=== PATIENT | male | born 1970 | race Caucasian/White ===

== ENCOUNTER 2017-06-26 11:47 | Inpatient (IN) | payer SELFPAY ==
[2017-06-26] VITALS (15 sets, daily range): BP systolic 128–201; BP diastolic 70–116; PULSE 104–147; RESP 10–27; TEMP 98–100.2; O2SAT 94–100
[~2017-06-26] VITALS: Ht 190.5 cm; Wt 107.4 kg
[~2017-06-26 11:47] MED LIST: NORV2.5T11 PO; SULF1TAB47 PO; Z.0.NO CURRENT MEDS
[2017-06-26] MEDS ORDERED: SODIUM CHLOR 0.9% 1000 ML INJ 1,000 ML IV ONE ×3 (12:08)
[2017-06-26] MEDS ORDERED: VANCOMYCIN INJ 1,250 MG in SODIUM CHLORID 0.9% 500 ML INJ 500 ML IV STA (12:08)
[2017-06-26] MEDS ORDERED: PIPERACIL-TAZO 4.5 GM PREMIX 100 ML IV STA (12:08)
[2017-06-26] MEDS ORDERED: CLINDAMYCIN INJ 900 MG in SODIUM CHLORIDE 0.9% INJ 100 ML IV STA (12:08)
[2017-06-26 12:37] LABS: AUTOMATED NEUTROPHIL # 13.9 TH/MM3 (1.8-7.7); BASOPHIL # 0.4 TH/MM3 (0-0.2); BASOPHIL % 2.4 % (0.0-2.0); EOSINOPHIL # 0.1 TH/MM3 (0-0.4); EOSINOPHIL % 0.4 % (0.0-4.0); LYMPHOCYTE # 1.3 TH/MM3 (1.0-4.8); MEAN CELL VOLUME 82.3 FL (80.0-100.0); MEAN CORPUSCULAR HEMOGLOBIN 27.9 PG (27.0-34.0); MEAN CORPUSCULAR HGB CONC 33.9 % (32.0-36.0); MONO % 5.6 % (0.0-8.0); NEUT % 83.6 % (16.0-70.0); PLATELET COUNT 248 TH/MM3 (150-450); RED BLOOD COUNT 5.47 MIL/MM3 (4.50-5.90); RED CELL DISTRIBUTION WIDTH 12.3 % (11.6-17.2); WHITE BLOOD COUNT 16.6 TH/MM3 (4.0-11.0)
[2017-06-26 12:40] LABS: HEMO FLAGS AUTO DIFF
[2017-06-26 12:45] LABS: CHLORIDE 95 MEQ/L (98-107); POTASSIUM 4.2 MEQ/L (3.5-5.1); SODIUM (NA) 129 MEQ/L (136-145)
[2017-06-26 12:50] LABS: ANION GAP 9 MEQ/L (5-15); BICARBONATE 24.8 MEQ/L (21.0-32.0)
[2017-06-26 12:53] LABS: BLOOD UREA NITROGEN 16 MG/DL (7-18)
[2017-06-26] MEDS ORDERED: CLINDAMYCIN 900 MG PREMIX 50 ML IV ONE (13:00)
[2017-06-26 13:02] LABS: ALKALINE PHOSPHATASE 99 U/L (45-117); ALT (GPT) 14 U/L (12-78); AST (GOT) 6 U/L (15-37); GLOMERULAR FILTRATION RATE 72 ML/MIN (>89); TOTAL BILIRUBIN ADULT 0.9 MG/DL (0.2-1.0)
[2017-06-26 13:10] LABS: BLOOD GAS BASE EXCESS -1.2 mmol/L (-2-2); BLOOD GAS CARBOXYHEMOGLOBIN 4.5 % (0-4); BLOOD GAS HCO3 22 mmol/L (22-26); BLOOD GAS METHEMOGLOBIN 0.9 % (0-2); BLOOD GAS O2 HGB SATURATION 92 % (90-100); BLOOD GAS OXYGEN CONTENT 18.7 Vol % (12.0-20.0); BLOOD GAS PCO2 34 mmHG (38-42); BLOOD GAS PO2 78 mmHG (61-120); BLOOD GAS TOTAL HGB 14.5 G/DL (12.0-16.0); CRITICAL VALUE NO; DRAW SITE LT BRACHIAL; FIO2 21 %; NUMBER OF ARTERIAL PUNCTURES 1; STAT YES; TEMP CORR TO 98.6; ULNAR PULSE PRESENT
[2017-06-26] MEDS ORDERED: INSULIN HUMAN REGULAR 1,000 UNITS/10 ML VIAL IV PUSH ONE (13:15)
[2017-06-26 13:26] LABS: SCAN/DIFF AUTO DIFF CONFIRMED
--- NOTE | 2017-06-26 13:36 | PD ---
HPI Chief Complaint: Skin Problem Time Seen by Provider: 12:05 Travel History International Travel<30 days: No Contact w/Intl Traveler<30days: No Traveled to known affect area: No History of Present Illness HPI 47 yo M c/o L foot infection for three days increasing redness and swelling. No fever. Minimal drainage noted about the great toe coupled with abrupt worsening overnight reported. Pt was referred here from urgent care due to appearance of foot and tachycardia 150. Pt denies any medical history however has not followed up with a physician. No symptoms c/w diabetes. PFSH Past Medical History Hypertension: Yes Influenza Vaccination: No Past Surgical History Tonsillectomy: Yes Other Surgery: Yes (HERNIA REPAIR) Social History Alcohol Use: No (FORMER) Tobacco Use: Yes (1 PPD) Substance Use: No Allergies-Medications (Allergen,Severity, Reaction): Coded Allergies: cephalexin (Unverified Allergy, Unknown, 06/26/17) codeine (Unverified Allergy, Unknown, 06/26/17) Reported Meds & Prescriptions Reported Meds & Active Scripts Active No Active Prescriptions or Reported Medications Review of Systems Except as stated in HPI: all other systems reviewed are Neg Skin: Positive Rash Physical Exam Narrative GENERAL: 47 yo M, WNWD, mild distress SKIN: Warm and dry. Well demarcated erythema and warmth about the dorsum of the left foot. No crepitus. No tenderness out of proportion. HEAD: Atraumatic. Normocephalic. EYES: Pupils equal and round. No scleral icterus. No injection or drainage. ENT: No nasal bleeding or discharge. Mucous membranes pink and moist. NECK: Trachea midline. No JVD. CARDIOVASCULAR: Tachycardia. Regular. RESPIRATORY: No accessory muscle use. Clear to auscultation. Breath sounds equal bilaterally. GASTROINTESTINAL: Abdomen soft, non-tender, nondistended. Hepatic and splenic margins not palpable. MUSCULOSKELETAL: Extremities without clubbing, cyanosis, or edema. No obvious deformities. NEUROLOGICAL: Awake and alert. No obvious cranial nerve deficits. Motor grossly within normal limits. Five out of 5 muscle strength in the arms and legs. Normal speech. PSYCHIATRIC: Appropriate mood and affect; insight and judgment normal. Data Data Last Documented VS Vital Signs Date Time Temp Pulse Resp B/P (MAP) Pulse Ox O2 Delivery O2 Flow Rate FiO2 06/26/17 12:30 98 Room Air 06/26/17 12:10 150 06/26/17 11:58 98.0 16 136/85 (102) VS reviewed Orders Orders Complete Blood Count With Diff (06/26/17 12:08) Comprehensive Metabolic Panel (06/26/17 12:08) Lactic Acid Sepsis Protocol (06/26/17 12:08) Urinalysis - C+S If Indicated (06/26/17 12:08) Blood Culture (06/26/17 12:08) Blood Glucose (06/26/17 12:08) Ecg Monitoring (06/26/17 12:08) Iv Access Insert/Monitor (06/26/17 12:08) Oximetry (06/26/17 12:08) Oxygen Administration (06/26/17 12:08) Piperacil-Tazo 4.5 Gm Premix (Zosyn 4.5 (06/26/17 12:08) Clindamycin Inj (Cleocin Inj) (06/26/17 12:08) Vancomycin Inj (Vancomycin Inj) (06/26/17 12:08) Sodium Chlor 0.9% 1000 Ml Inj (Ns 1000 M (06/26/17 12:08) Sodium Chlor 0.9% 1000 Ml Inj (Ns 1000 M (06/26/17 12:08) Sodium Chlor 0.9% 1000 Ml Inj (Ns 1000 M (06/26/17 12:08) Foot, Limited (2vws) (06/26/17 ) Wound Culture And Gram Stain (06/26/17 12:32) Arterial Blood Gas (Abg) (06/26/17 ) Beta Hydroxybutyrate (Acetone) (06/26/17 12:52) Clindamycin 900 Mg Premix (Cleocin 900 M (06/26/17 13:00) Insulin Human Regular Inj (Novolin R Inj (06/26/17 13:15) Labs Laboratory Tests Test 06/26/17 12:20 06/26/17 12:25 06/26/17 13:00 White Blood Count 16.6 TH/MM3 Red Blood Count 5.47 MIL/MM3 Hemoglobin 15.3 GM/DL Hematocrit 45.0 % Mean Corpuscular Volume 82.3 FL Mean Corpuscular Hemoglobin 27.9 PG Mean Corpuscular Hemoglobin Concent 33.9 % Red Cell Distribution Width 12.3 % Platelet Count 248 TH/MM3 Mean Platelet Volume 9.2 FL Neutrophils (%) (Auto) 83.6 % Lymphocytes (%) (Auto) 8.0 % Monocytes (%) (Auto) 5.6 % Eosinophils (%) (Auto) 0.4 % Basophils (%) (Auto) 2.4 % Neutrophils # (Auto) 13.9 TH/MM3 Lymphocytes # (Auto) 1.3 TH/MM3 Monocytes # (Auto) 0.9 TH/MM3 Eosinophils # (Auto) 0.1 TH/MM3 Basophils # (Auto) 0.4 TH/MM3 CBC Comment AUTO DIFF Blood Urea Nitrogen 16 MG/DL Creatinine 1.10 MG/DL Random Glucose 413 MG/DL Total Protein 8.1 GM/DL Albumin 3.3 GM/DL Calcium Level 9.3 MG/DL Alkaline Phosphatase 99 U/L Aspartate Amino Transf (AST/SGOT) 6 U/L Alanine Aminotransferase (ALT/SGPT) 14 U/L Total Bilirubin 0.9 MG/DL Sodium Level 129 MEQ/L Potassium Level 4.2 MEQ/L Chloride Level 95 MEQ/L Carbon Dioxide Level 24.8 MEQ/L Anion Gap 9 MEQ/L Estimat Glomerular Filtration Rate 72 ML/MIN Lactic Acid Level 2.2 mmol/L Blood Gas Puncture Site LT BRACHIAL Blood Gas Patient Temperature 98.6 Blood Gas HCO3 22 mmol/L Blood Gas Base Excess -1.2 mmol/L Blood Gas Oxygen Saturation 92 % Arterial Blood pH 7.43 Arterial Blood Partial Pressure CO2 34 mmHG Arterial Blood Partial Pressure O2 78 mmHG Arterial Blood Oxygen Content 18.7 Vol % Arterial Blood Carboxyhemoglobin 4.5 % Arterial Blood Methemoglobin 0.9 % Blood Gas Hemoglobin 14.5 G/DL Oxygen Delivery Device NONE Blood Gas Inspired Oxygen 21 % [facility] Medical Decision Making Medical Screen Exam Complete: Yes Emergency Medical Condition: Yes Medical Record Reviewed: Yes Differential Diagnosis Cellulitis, necrotizing fasciitis, abscess, osteomyelitis, diabetes, DKA Narrative Course CBC & BMP Diagram 06/26/17 12:20 Total Protein 8.1, Albumin 3.3 L, Calcium Level 9.3, Alkaline Phosphatase 99, Aspartate Amino Transf (AST/SGOT) 6 L, Alanine Aminotransferase (ALT/SGPT) 14, Total Bilirubin 0.9 Anion gap 9 Lactic acid 2.2 7.43/34/22 Foot xray: no free air/gas Zosyn, Clinda, and Vanco started 3L NS started and 10u insulin given Admission for sepsis due to cellulitis and for new diagnosis of diabetes d/w Dr Rizzo Critical Care Narrative Aggregate critical care time was 35 minutes. Time to perform other separately billable procedures was not included in the critical care time. My time did not include minutes spent treating any other patients simultaneously or on activities that did not directly contribute to the patient's treatment. The services I provided to this patient were to treat and/or prevent clinically significant deterioration that could result in: Septic shock, loss of limb I provided critical care services requiring my management, as noted below: Chart data review, documentation time, medication orders and management, vital sign assessments/reviewing monitor data, ordering and reviewing lab tests, ordering and interpreting/reviewing x-rays and diagnostic studies, care of the patient and discussion of the patient with the admitting physicians. Sepsis Criteria SIRS Criteria (2 or more): Heart rate over 90, WBC > 25767, < 4000 or > 10% bands Sepsis Criteria (SIRS+source): Infect source susp/known Severe Sepsis (+one): Lactate >2 Diagnosis Primary Impression: Severe sepsis Additional Impressions: Cellulitis of foot Diabetes Qualified Codes: E13.8 - Other specified diabetes mellitus with unspecified complications Admitting Information Admitting Physician Requests: Admit Scripts No Active Prescriptions or Reported Meds Aj Rios MD Jun 26, 2017 13:36
--- NOTE | 2017-06-26 13:44 | RADRPT ---
EXAM DATE/TIME: 06/26/2017 12:28 [facility] COMPARISON: No previous studies available for comparison. INDICATIONS : Left foot swelling and infection. MEDICAL HISTORY : Hypertension. SURGICAL HISTORY : None. ENCOUNTER: Initial ACUITY: 4 - 6 days PAIN SCORE: 4/10 LOCATION: foot. FINDINGS: 2 views of the left foot demonstrate no fracture or dislocation. Mineralization is normal. Lisfranc j oint is intact. There is soft tissue swelling of the first digit with possible wound on the plantar a spect. No radiopaque foreign body is identified. CONCLUSION: Soft tissue swelling of the first digit with possible wound on the plantar aspect. No acute osseous a bnormality is identified. Enrique Lane MD on June 26, 2017 at 13:39 Board Certified Radiologist. This report was verified electronically.
[2017-06-26] MEDS ORDERED: MAGNESIUM HYDROXIDE SUSP 30 ML CUP PO PRN (13:45)
[2017-06-26] MEDS ORDERED: BISACODYL 10 MG SUPP RECTAL PRN (13:45)
[2017-06-26] MEDS ORDERED: LACTULOSE SYRUP 20 GM/30 ML CUP PO PRN (13:45)
[2017-06-26] MEDS ORDERED: ONDANSETRON HCL 4 MG/2 ML VIAL IVP PRN (13:45)
[2017-06-26] MEDS ORDERED: NALOXONE HCL 0.4 MG/ML AMP IV PUSH PRN (13:45)
[2017-06-26] MEDS ORDERED: Vancomycin Consult Pharmacy 1 EA OTHER SCH (13:45)
[2017-06-26] MEDS ORDERED: SENNOSIDES 8.6 MG TAB PO PRN (13:45)
[2017-06-26 14:02] LABS: BETA-HYDROXYBUTYRATE 1.26 MMOL/L (0.00-0.39)
[2017-06-26] MEDS ORDERED: IOHEXOL 350 MG/ML 10 ML VIAL (for RAD DIAG) IVCONTRAST ONE (14:20)
[2017-06-26 14:30] LABS: LACTIC ACID GHOST NOT REPORTABLE
--- NOTE | 2017-06-26 14:49 | RADRPT ---
EXAM DATE/TIME: 06/26/2017 13:58 [facility] COMPARISON: No previous studies available for comparison. INDICATIONS : Left foot pain, redness and swelling x 3days. Draining from plantar surface of great toe. Evaluate for necrotizing fasciitis. IV CONTRAST: 85 cc Omnipaque 350 (iohexol) IV RADIATION DOSE: 6.19 CTDIvol (mGy) MEDICAL HISTORY : Hypertension. SURGICAL HISTORY : Hernia repair. ENCOUNTER: Initial ACUITY: 3 days PAIN SCALE: 3/10 LOCATION: Left foot TECHNIQUE: Volumetric scanning of the foot was performed. Using automated exposure control and adjustment of th e mA and/or kV according to patient size, radiation dose was kept as low as reasonably achievable to obtain optimal diagnostic quality images. DICOM format image data is available electronically for re view and comparison. FINDINGS: BONES: No evidence of fracture. Alignment is within normal limits. JOINTS: No evidence of joint narrowing or effusion. SOFT TISSUES: Significant soft tissue swelling along the medial aspect of the foot is noted from the midfoot to the great toe. A defect along the plantar surface of the great toe is characteristic of an ulceration. T here is no evidence of subcutaneous gas or other findings that would indicate necrotizing fasciitis. CONCLUSION: 1. Soft tissue swelling along the medial aspect of the forefoot with ulceration on the plantar surfac e of the great toe. 2. No evidence of destructive bone changes. 3. No evidence of soft tissue air to suggest necrotizing fasciitis. Alcides Burris MD on June 26, 2017 at 14:42 Board Certified Radiologist. This report was verified electronically.
[2017-06-26] MEDS ORDERED: LORazepam 2 MG TAB PO ONE (16:00)
[2017-06-26] MEDS ORDERED: FLUMAZENIL 0.5 MG/5 ML VIAL IV PUSH PRN (16:00)
[2017-06-26] MEDS ORDERED: LORazepam 1 MG TAB PO PRN (16:00)
[2017-06-26] MEDS ORDERED: LORazepam 2 MG TAB PO PRN (16:00)
[2017-06-26] MEDS ORDERED: LORazepam 2 MG/ML VIAL IV PUSH PRN ×4 (16:00)
--- NOTE | 2017-06-26 16:07 | HHI.HP ---
[facility] Primary [facility]ician No Primary Care Physician Admission Diagnosis Severe Sepsis 2/2 Cellulitis, New Dx DM Diagnoses: Travel History International Travel<30 Days: No Contact w/Intl Traveler <30 Da: No Traveled to Known Affected Are: No Past Family Social History Past Medical History History of chronic allergies for which patient takes [id number] antihistamine Past Surgical History Inguinal hernia repair as a child Tonsillectomy Reported Medications takes [id number] antihistamine. Allergies: Coded Allergies: cephalexin (Unverified Allergy, Unknown, 06/26/17) codeine (Unverified Allergy, Unknown, 06/26/17) Family History Mother with type 2 diabetes, hypertension. Father with chronic leukocytic leukemia. Social History Patient's smoked one pack per day for past 27 years. Patient reports history of heavy alcohol use drinking a case of beer per day, however quit 3 months ago. Denies any illicit drugs. Physical Exam Vital Signs Vital Signs Date Time Temp Pulse Resp B/P (MAP) Pulse Ox O2 Delivery O2 Flow Rate FiO2 06/26/17 15:03 06/26/17 14:47 130 18 175/90 (118) 99 Room Air 06/26/17 12:30 98 Room Air 06/26/17 12:28 98 Room Air 06/26/17 12:10 150 06/26/17 11:58 98.0 147 16 136/85 (102) 99 Physical Exam GENERAL: This is a well-nourished, well-developed patient. Appears to be breathing rapidly about 22 respirations per minute. SKIN: No rashes, ecchymoses or lesions. Cool and dry. HEAD: Atraumatic. Normocephalic. No temporal or scalp tenderness. EYES: Pupils equal round and reactive. Extraocular motions intact. No scleral icterus. No injection or drainage. ENT: Nose without bleeding, purulent drainage or septal hematoma. Throat without erythema, tonsillar hypertrophy or exudate. Uvula midline. Airway patent. Very poor dentition. No abscesses noted. NECK: Trachea midline. No JVD or lymphadenopathy. Supple, nontender, no meningeal signs. CARDIOVASCULAR: Regular rate and rhythm without murmurs, gallops, or rubs. RESPIRATORY: Clear to auscultation. Breath sounds equal bilaterally. No wheezes , rales, or rhonchi. GASTROINTESTINAL: Abdomen soft, non-tender, nondistended. No hepato-splenomegaly , or palpable masses. No guarding. MUSCULOSKELETAL: Extremities without clubbing, cyanosis, or edema. No joint tenderness, effusion, or edema noted. No calf tenderness. Negative Homans sign bilaterally. Left foot ulcer of great toe, as well as palliative foot, roughly 1 cm, surrounded with erythema extending one third of the way up the foot. NEUROLOGICAL: Awake and alert. Cranial nerves II through XII intact. Motor and sensory grossly within normal limits. Five out of 5 muscle strength in all muscle groups. Normal speech. Laboratory Laboratory Tests Test 06/26/17 12:20 06/26/17 12:25 06/26/17 13:00 White Blood Count 16.6 Red Blood Count 5.47 Hemoglobin 15.3 Hematocrit 45.0 Mean Corpuscular Volume 82.3 Mean Corpuscular Hemoglobin 27.9 Mean Corpuscular Hemoglobin Concent 33.9 Red Cell Distribution Width 12.3 Platelet Count 248 Mean Platelet Volume 9.2 Neutrophils (%) (Auto) 83.6 Lymphocytes (%) (Auto) 8.0 Monocytes (%) (Auto) 5.6 Eosinophils (%) (Auto) 0.4 Basophils (%) (Auto) 2.4 Neutrophils # (Auto) 13.9 Lymphocytes # (Auto) 1.3 Monocytes # (Auto) 0.9 Eosinophils # (Auto) 0.1 Basophils # (Auto) 0.4 CBC Comment AUTO DIFF Differential Comment AUTO DIFF CONFIRMED Blood Urea Nitrogen 16 Creatinine 1.10 Random Glucose 413 Total Protein 8.1 Albumin 3.3 Calcium Level 9.3 Alkaline Phosphatase 99 Aspartate Amino Transf (AST/SGOT) 6 Alanine Aminotransferase (ALT/SGPT) 14 Total Bilirubin 0.9 Sodium Level 129 Potassium Level 4.2 Chloride Level 95 Carbon Dioxide Level 24.8 Anion Gap 9 Estimat Glomerular Filtration Rate 72 B-Hydroxybutyrate 1.26 Lactic Acid Level 2.2 Blood Gas Puncture Site LT BRACHIAL Blood Gas Patient Temperature 98.6 Blood Gas HCO3 22 Blood Gas Base Excess -1.2 Blood Gas Oxygen Saturation 92 Arterial Blood pH 7.43 Arterial Blood Partial Pressure CO2 34 Arterial Blood Partial Pressure O2 78 Arterial Blood Oxygen Content 18.7 Arterial Blood Carboxyhemoglobin 4.5 Arterial Blood Methemoglobin 0.9 Blood Gas Hemoglobin 14.5 Oxygen Delivery Device NONE Blood Gas Inspired Oxygen 21 Date/Time Source Procedure Growth Status 06/26/17 12:25 Blood Peripheral Aerobic Blood Culture Pending Received 06/26/17 12:25 Blood Peripheral Anaerobic Blood Culture Pending Received 06/26/17 13:50 Wound Toe Gram Stain Pending Received 06/26/17 13:50 Wound Toe Wound Culture Pending Received Result Diagram: 06/26/17 1220 06/26/17 1220 Imaging Last Impressions Lower Extremity CT 06/26/17 0000 Signed Impressions: Service Date/Time: June 13:58 - CONCLUSION: 1. Soft tissue swelling along the medial aspect of the forefoot with ulceration on the plantar surface of the great toe. 2. No evidence of destructive bone changes. 3. No evidence of soft tissue air to suggest necrotizing fasciitis. Alcides Burris MD Foot X-Ray 06/26/17 0000 Signed Impressions: Service Date/Time: June 12:28 - CONCLUSION: Soft tissue swelling of the first digit with possible wound on the plantar aspect. No acute osseous abnormality is identified. MD Daisy Zelaya VTE Risk Assessment Caprini VTE Risk Assessment: No/Low Risk (score <= 1) Caprini Risk Assessment Model Point Value = 1 Point Value = 2 Point Value = 3 Point Value = 5 Age 41-60 Minor surgery BMI > 25 kg/m2 Swollen legs Varicose veins or History of unexplained or recurrent spontaneous Oral contraceptives or hormone replacement Sepsis (< 1 month) Serious lung disease, including pneumonia (< 1 month) Abnormal pulmonary function Acute myocardial infarction Congestive heart failure (< 1 month) History of inflammatory bowel disease Medical patient at bed rest Age 61-74 Arthroscopic surgery Major open surgery (> 45 min) Laparoscopic surgery (> 45 min) Malignancy Confined to bed (> 72 hours) Immobilizing plaster cast Central venous access Age >= 75 History of VTE Family history of VTE Factor V Leiden Prothrombin [id number] Lupus anticoagulant Anticardiolipin antibodies Elevated serum homocysteine Heparin-induced thrombocytopenia Other congenital or acquired thrombophilia Stroke (< 1 month) Elective arthroplasty Hip, pelvis, or leg fracture Acute spinal cord injury (< 1 month) Prophylaxis Regimen Total Risk Factor Score Risk Level Prophylaxis Regimen 0-1 Low Early ambulation 2 Moderate Order ONE of the following: *Sequential Compression Device (SCD) *Heparin 5000 units SQ BID 3-4 Higher Order ONE of the following medications: *Heparin 5000 units SQ TID *Enoxaparin/Lovenox 40 mg SQ daily (WT < 150 kg, CrCl > 30 mL/min) *Enoxaparin/Lovenox 30 mg SQ daily (WT < 150 kg, CrCl > 10-29 mL/min) *Enoxaparin/Lovenox 30 mg SQ BID (WT < 150 kg, CrCl > 30 mL/min) AND/OR *Sequential Compression Device (SCD) 5 or more Highest Order ONE of the following medications: *Heparin 5000 units SQ TID (Preferred with Epidurals) *Enoxaparin/Lovenox 40 mg SQ daily (WT < 150 kg, CrCl > 30 mL/min) *Enoxaparin/Lovenox 30 mg SQ daily (WT < 150 kg, CrCl > 10-29 mL/min) *Enoxaparin/Lovenox 30 mg SQ BID (WT < 150 kg, CrCl > 30 mL/min) AND *Sequential Compression Device (SCD) Assessment and Plan Assessment and Plan //Severe Sepsis Leukocytosis 16.6, tachycardia 150 on admission. Lactate 2.2. Diabetic foot ulcer with cellulitis. -Status post multiple IV fluid boluses. Continue broad-spectrum antibiotics. Close monitoring of vitals. Follow-up blood and wound culture. //Sinus tachycardia -Appears sinus on telemetry. Appears to be out of proportion to current sepsis. -Slightly improved from heart rate of 150 to 130s with IV fluids. Urine drugs ordered and pending. //diabetic ulcer of left foot with cellulitis //Initially with concern for hasn't fasciitis per discussion with ER. -Foot x-ray negative for air. -We ordered CT exam which is negative for necrotizing fasciitis. -Continue vancomycin and Zosyn. -Consult podiatry. //Hyperglycemia //New-onset diabetes -Glucose of 413 on admission. -Status post IV insulin in the ER. -A1c ordered and pending. -Start diabetic diet and insulin sliding scale. //Hypertensive. //History of alcoholism. -Systolic blood pressure in the 180s upon arrival to floor. Unknown baseline. - Patient reports history of extremely heavy alcohol use having quit several months ago. His mother is present in the room, and I suspect he may have not quit. He does have a tremor which she says is chronic. We'll order CIWA protocol. //Tobacco abuse. Cessation counseling provided. DVT prophylaxis. SCDs Discussed Condition With Patient, mother bedside, ED physician. Physician Certification 2 Midnight Certification Type: Admission for Inpatient Services Order for Inpatient Services The services are ordered in accordance with Medicare regulations or non- Medicare payer requirements, as applicable. In the case of services not specified as inpatient-only, they are appropriately provided as inpatient services in accordance with the 2-midnight benchmark. Estimated LOS (days): 3 days is the estimated time the patient will need to remain in the hospital, assuming treatment plan goals are met and no additional complications. Post-Hospital Plan: [place] Carlo Rizzo MD Jun 26, 2017 16:07
[2017-06-26 16:44] LABS: GLUCOSE,URINE 500 mg/dL (NEG); KETONE, URINE 40 mg/dL (NEG); NITRITE,URINE NEG (NEG)
[2017-06-26 16:53] LABS: BLOOD, URINE TRACE (NEG)
[2017-06-26 16:54] LABS: URINE COLOR YELLOW (YELLW/STRAW)
[2017-06-26] MEDS: SODIUM CHLOR 0.9% 1000 ML INJ 1,000 ML IV SCH (16:56)
[2017-06-26] MEDS: INSULIN ASPART SUPPLEMENTAL SCALE SQ SCH ×2 (17:09→22:04)
[2017-06-26 17:14] LABS: COMMENT (UR) CULT NOT INDICATED; CULTURE IF INDICATED CULT NOT INDICATED; URIC ACID CRYSTALS, URINE MOD /hpf
[2017-06-26] MEDS ORDERED: DILTIAZEM HCL 25 MG/5 ML VIAL IV PUSH ONE (17:30)
[2017-06-26] MEDS ORDERED: DILTIAZEM HCL 25 MG/5 ML VIAL IV PUSH PRN (17:45)
[2017-06-26] MEDS ORDERED: CLINDAMYCIN 900 MG PREMIX 50 ML IV SCH (18:00)
--- NOTE | 2017-06-26 18:26 | PD.POD.CON ---
Patient Intake Chief Complaint Infection and cellulitis of the left foot Consult Requested by Dr. Rizzo Reason for Consult Evaluation and treatment of left foot wound Primary Care Physician No Primary Care Physician History of Present Illness The patient is a 47-year-old male who presented to [facility] with redness and swelling of the left foot. Patient states he has no past medical history that is significant although on admission his blood sugar is 413. Hemoglobin A1c is pending. Patient states 3 days ago he started to develop redness and swelling on the left foot. He has loss of sensation either from diabetes or long-term alcohol use. Patient smokes at least 1 pack of cigarettes per day. He states he had a callus on the bottom of the big toe which is currently bleeding. Cultures and sensitivities are pending. Patient was admitted for possible necrotizing fasciitis. CT scan shows no signs of fasciitis. No bone destruction was seen. Coded Allergies: cephalexin (Unverified Allergy, Unknown, 06/26/17) codeine (Unverified Allergy, Unknown, 06/26/17) Preferred Language to Discuss: Czech Barriers to Learning: None Teaching Method: Discussion Vital Signs Date Time Temp Pulse Resp B/P (MAP) Pulse Ox O2 Delivery O2 Flow Rate FiO2 06/26/17 15:03 06/26/17 14:47 130 18 175/90 (118) 99 Room Air 06/26/17 12:30 98 Room Air 06/26/17 12:28 98 Room Air 06/26/17 12:10 150 06/26/17 11:58 98.0 147 16 136/85 (102) 99 Pain scale used: 0-10 numeric scale Pain score: 1 Medications Current Medications Piperacillin Sod/ Tazobactam Sod 100 ml @ 200 mls/hr ONCE STAT IV Last administered on 06/26/17 13:30; Start 06/26/17 at 12:08; Stop 06/26/17 at 12:37 ; Status DC Clindamycin Phosphate 900 mg/ Sodium Chloride 106 ml @ 200 mls/hr ONCE STAT IV ; Start 06/26/17 at 12:08; Stop 06/26/17 at 12:42; Status DC Vancomycin HCl 1250 mg/Sodium Chloride 512.5 ml @ 257.5 mls/ hr ONCE STAT IV Last administered on 06/26/17 14:44; Start 06/26/17 at 12:08; Stop 06/26/17 at 14:07; Status DC Sodium Chloride 1,000 ml @ 1,000 mls/hr Q1H ONCE IV Last administered on 12:44; Start 06/26/17 at 12:08; Stop 06/26/17 at 13:07; Status DC Sodium Chloride 1,000 ml @ 1,000 mls/hr Q1H ONCE IV Last administered on 13:28; Start 06/26/17 at 12:08; Stop 06/26/17 at 13:07; Status DC Sodium Chloride 1,000 ml @ 1,000 mls/hr Q1H ONCE IV Last administered on 14:43; Start 06/26/17 at 12:08; Stop 06/26/17 at 13:07; Status DC Clindamycin Phosphate/Dextrose 50 ml @ 100 mls/hr STAT ONCE IV Last administered on 06/26/17 13:05; Start 06/26/17 at 13:00; Stop 06/26/17 at 13:29 ; Status DC Insulin Human Regular (NovoLIN R INJ) 10 units ONCE ONCE IV PUSH Last administered on 06/26/17 13:28; Start 06/26/17 at 13:15; Stop 06/26/17 at 13:16 ; Status DC Piperacillin Sod/ Tazobactam Sod 50 ml @ 100 mls/hr Q6H IV ; Start 06/26/17 at 20:00 Pharmacy Profile Note 0 ml @ 0 mls/hr UNSCH OTHER ; Start 06/26/17 at 13:45 Clindamycin Phosphate/Dextrose 50 ml @ 100 mls/hr Q6HR IV ; Start 06/26/17 at 18:00; Stop 06/26/17 at 18:00; Status DC Insulin Aspart (NovoLOG SUPPLEMENTAL SCALE) 1 ACHS SLIDING SCALE SQ Last administered on 06/26/17 17:09; Start 06/26/17 at 17:00 Sodium Chloride 1,000 ml @ 100 mls/hr Q10H IV Last administered on 06/26/17 16:56; Start 06/26/17 at 13:38 Sodium Chloride (NS Flush) 2 ml UNSCH PRN IV FLUSH FLUSH AFTER USING IV ACCESS ; Start 06/26/17 at 13:45 Sodium Chloride (NS Flush) 2 ml BID IV FLUSH ; Start 06/26/17 at 21:00 Ondansetron HCl (Zofran Inj) 4 mg Q6H PRN IVP NAUSEA OR VOMITING; Start at 13:45 Naloxone HCl (Narcan Inj) 0.4 mg UNSCH PRN IV PUSH SEE LABEL COMMENTS; Start 06/26/17 at 13:45 Magnesium Hydroxide (Milk Of Magnesia Liq) 30 ml Q12H PRN PO Mild constipation ; Start 06/26/17 at 13:45 Sennosides (Senokot) 17.2 mg Q12H PRN PO Moderate constipation; Start 06/26/17 at 13:45 Bisacodyl (Dulcolax Supp) 10 mg DAILY PRN RECTAL SEVERE CONSITIPATION; Start 06/26/17 at 13:45 Lactulose (Lactulose Liq) 30 ml DAILY PRN PO SEVERE CONSITIPATION; Start at 13:45 Iohexol (Omnipaque 350 Inj) 85 ml STK-MED ONCE IVCONTRAST Last administered on 06/26/17t 14:20; Start 06/26/17 at 14:20; Stop 06/26/17 at 14:21; Status DC Vancomycin HCl 1750 mg/Sodium Chloride 517.5 ml @ 250 mls/hr Q12H IV ; Start 06/27/17 at 03:00 Miscellaneous Information SPECIFIC LAB TO BE ... ONCE ONCE .XX ; Start 07/04 at 14:45; Stop 06/28/17 at 14:46 Lorazepam (Ativan) 2 mg ONCE ONCE PO Last administered on 06/26/17t 16:48; Start 06/26/17 at 16:00; Stop 06/26/17 at 16:02; Status DC Flumazenil (Romazicon Inj) 0.2 mg Q1M PRN IV PUSH SEE LABEL COMMENTS; Start at 16:00 Lorazepam (Ativan) 1 mg Q4H PRN PO CIWA 8 - 10; Start 06/26/17 at 16:00 Lorazepam (Ativan Inj) 1 mg Q4H PRN IV PUSH CIWA 8 - 10; Start 06/26/17 at 16: 00 Lorazepam (Ativan) 2 mg Q2H PRN PO CIWA 11-14; Start 06/26/17 at 16:00 Lorazepam (Ativan Inj) 2 mg Q2H PRN IV PUSH CIWA 11-14; Start 06/26/17 at 16:00 Lorazepam (Ativan Inj) 2 mg Q1H PRN IV PUSH CIWA 15-20; Start 06/26/17 at 16:00 Lorazepam (Ativan Inj) 2 mg Q15M PRN IV PUSH CIWA > 20; Start 06/26/17 at 16:00 Diltiazem HCl (Cardizem Inj) 20 mg ONCE ONCE IV PUSH ; Start 06/26/17 at 17:30 ; Stop 06/26/17 at 17:42; Status DC Diltiazem HCl 125 mg/Sodium Chloride 125 ml @ 5 mls/hr TITRATE PRN IV Tachycardia; Start 06/26/17 at 18:00 Diltiazem HCl (Cardizem Inj) 20 mg UNSCH X1 PRN IV PUSH SEE LABEL COMMENTS; Start 06/26/17 at 17:45; Stop 06/26/17 at 18:30 Past, Family & Social History Past Medical History Endocrine: REPORTS HX OF: Diabetes mellitus (patient did not know that he was diabetic) Alcohol Use Alcohol Intake: history of drinking at least a sixpack daily up until 3 months ago Additional Information Additional History Patient smokes at least 1 pack of cigarettes per day Review of Systems Integumentary: COMPLAINS OF: Rash Neurological: COMPLAINS OF: Numbness/tingling, Changes in sensation Exam-Podiatry Constitutional General appearance: comfortable Nutritional status: normal Orientation: alert and oriented x3 Dermatological Exam Skin Temp - Right: Within Normal Limits Skin Texture - Right: Within Normal Limits Skin Elasticity - Right: Within Normal Limits Skin Tugor - Right: Within Normal Limits Hair Growth - Right: Within Normal Limits Pigmentation - Right: Within Normal Limits Skin Temp - Left: Hot Skin Texture - Left: Thin Skin Elasticity - Left: Decreased Skin Tugor - Left: Decreased Hair Growth - Left: Abnormal Pigmentation - Left: Abnormal Ulcers: Location/Measurements Entire left forefoot is cellulitic with cyanotic changes of the hallux. There is a hyperkeratotic lesion under the left hallux and under the fourth metatarsal head of the left foot. Vascular/Lymphatic Exam R Dorsails Pedis: Palpable L Dorsails Pedis: Palpable R Posterior Tibial: Palpable L Posterior Tibial: Palpable Present on left: Cyanosis Neurologic Exam Present on right: Tingling, Paraesthesia Present on left: Tingling, Paraesthesia Muscle Strength Dorsiflexion (Right): Normal Plantarflexion (Right): Normal Inversion (Right): Normal Eversion (Right): Normal Digital (Right): Normal Dorsiflexion (Left): Normal Plantarflexion (Left): Normal Inversion (Left): Normal Eversion (Left): Normal Digital (Left): Normal Foot Range of Motion Dorsiflexion (Right): Normal Plantarflexion (Right): Normal Inversion (Right): Normal Eversion (Right): Normal Digital (Right): Normal Dorsiflexion (Left): Normal Plantarflexion (Left): Normal Inversion (Left): Normal Eversion (Left): Normal Digital (Left): Normal Lab and Radiology Results Laboratory Laboratory Tests Test 06/26/17 12:20 White Blood Count 16.6 TH/MM3 Red Blood Count 5.47 MIL/MM3 Hemoglobin 15.3 GM/DL Hematocrit 45.0 % Mean Corpuscular Volume 82.3 FL Mean Corpuscular Hemoglobin 27.9 PG Mean Corpuscular Hemoglobin Concent 33.9 % Red Cell Distribution Width 12.3 % Platelet Count 248 TH/MM3 Mean Platelet Volume 9.2 FL Neutrophils (%) (Auto) 83.6 % Lymphocytes (%) (Auto) 8.0 % Monocytes (%) (Auto) 5.6 % Eosinophils (%) (Auto) 0.4 % Basophils (%) (Auto) 2.4 % Neutrophils # (Auto) 13.9 TH/MM3 Lymphocytes # (Auto) 1.3 TH/MM3 Monocytes # (Auto) 0.9 TH/MM3 Eosinophils # (Auto) 0.1 TH/MM3 Basophils # (Auto) 0.4 TH/MM3 CBC Comment AUTO DIFF Differential Comment AUTO DIFF CONFIRMED Laboratory Tests Test 06/26/17 12:20 06/26/17 12:25 06/26/17 17:39 Blood Urea Nitrogen 16 MG/DL Creatinine 1.10 MG/DL Random Glucose 413 MG/DL Total Protein 8.1 GM/DL Albumin 3.3 GM/DL Calcium Level 9.3 MG/DL Alkaline Phosphatase 99 U/L Aspartate Amino Transf (AST/SGOT) 6 U/L Alanine Aminotransferase (ALT/SGPT) 14 U/L Total Bilirubin 0.9 MG/DL Sodium Level 129 MEQ/L Potassium Level 4.2 MEQ/L Chloride Level 95 MEQ/L Carbon Dioxide Level 24.8 MEQ/L Anion Gap 9 MEQ/L Estimat Glomerular Filtration Rate 72 ML/MIN Thyroid Stimulating Hormone 3rd Gen 0.855 uIU/ML Lactic Acid Level 2.2 mmol/L 1.7 mmol/L Microbiology Date/Time Source Procedure Growth Status 06/26/17 12:25 Blood Peripheral Aerobic Blood Culture Pending Received 06/26/17 12:25 Blood Peripheral Anaerobic Blood Culture Pending Received 06/26/17 12:20 Blood Peripheral Aerobic Blood Culture Pending Received 06/26/17 12:20 Blood Peripheral Anaerobic Blood Culture Pending Received 06/26/17 13:50 Wound Toe Gram Stain Pending Received 06/26/17 13:50 Wound Toe Wound Culture Pending Received Radiology Last Impressions Lower Extremity CT 06/26/17 0000 Signed Impressions: Service Date/Time: June 13:58 - CONCLUSION: 1. Soft tissue swelling along the medial aspect of the forefoot with ulceration on the plantar surface of the great toe. 2. No evidence of destructive bone changes. 3. No evidence of soft tissue air to suggest necrotizing fasciitis. Alcides Burris MD Foot X-Ray 06/26/17 0000 Signed Impressions: Service Date/Time: June 12:28 - CONCLUSION: Soft tissue swelling of the first digit with possible wound on the plantar aspect. No acute osseous abnormality is identified. Enrique Lane MD Assessment/Plan Problem List: (1) Diabetic foot ulcer Status: Acute (2) Cellulitis of foot Status: Acute Additional Plans & Procedures PLAN: I will order a Maxorb extra AG dressings to the foot to be changed daily. Arterial segmental Dopplers ordered with ABIs and TBI's. Discussed with patient tobacco cessation. Discussed risk of amputation in diabetics he smokes. We'll follow during the course of this admission. Discussed with Dr. Rizzo Thank you for this consult. Problem Qualifiers (1) Diabetic foot ulcer: Qualified Codes: E11.621 - Type 2 diabetes mellitus with foot ulcer; L97.521 - Non-pressure chronic ulcer of other part of left foot limited to breakdown of skin Ryan Garrett DPM Jun 26, 2017 18:26
[2017-06-26] MEDS: PIPERACIL-TAZO 3.375 GM PREMIX 50 ML IV SCH (21:09)
[2017-06-26] MEDS: DILTIAZEM INJ 125 MG in SODIUM CHLORIDE 0.9% INJ 100 ML IV PRN (21:48)
[2017-06-26 21:51] LABS: HEMOGLOBIN A1a 1.9 %; HEMOGLOBIN A1b 2.7 %; HEMOGLOBIN Ao 76.4 %; HEMOGLOBIN P3 4.8 %
[2017-06-26] MEDS: SODIUM CHLORIDE 0.9% FLUSH 10 ML FLUSH IV FLUSH SCH (22:05)
[2017-06-27] VITALS (36 sets, daily range): BP systolic 113–179; BP diastolic 65–97; PULSE 92–114; RESP 3–34; TEMP 97.6–99.4; O2SAT 98–99
[2017-06-27] MEDS ORDERED: FAMOTIDINE 20 MG TAB PO ONE (01:30)
[2017-06-27] MEDS: PIPERACIL-TAZO 3.375 GM PREMIX 50 ML IV SCH ×4 (01:59→17:07)
[2017-06-27] MEDS: SODIUM CHLOR 0.9% 1000 ML INJ 1,000 ML IV SCH ×2 (02:20→11:48)
[2017-06-27] MEDS: cloNIDine HCL 0.1 MG TAB PO PRN ×2 (02:22→21:20)
[2017-06-27] MEDS ORDERED: VANCOMYCIN INJ 1,750 MG in SODIUM CHLORID 0.9% 500 ML INJ 500 ML IV SCH (03:00)
[2017-06-27] MEDS: DILTIAZEM INJ 125 MG in SODIUM CHLORIDE 0.9% INJ 100 ML IV PRN (04:09)
[2017-06-27 04:49] LABS: AUTOMATED NEUTROPHIL # 11.8 TH/MM3 (1.8-7.7); BASOPHIL # 0.1 TH/MM3 (0-0.2); BASOPHIL % 0.4 % (0.0-2.0); EOSINOPHIL % 0.2 % (0.0-4.0); HEMATOCRIT 36.3 % (39.0-51.0); LYMPH % 11.2 % (9.0-44.0); LYMPHOCYTE # 1.7 TH/MM3 (1.0-4.8); MEAN CELL VOLUME 81.6 FL (80.0-100.0); MEAN CORPUSCULAR HEMOGLOBIN 28.1 PG (27.0-34.0); MEAN CORPUSCULAR HGB CONC 34.5 % (32.0-36.0); MONO % 7.9 % (0.0-8.0); NEUT % 80.3 % (16.0-70.0); PLATELET COUNT 226 TH/MM3 (150-450); RED BLOOD COUNT 4.45 MIL/MM3 (4.50-5.90); RED CELL DISTRIBUTION WIDTH 12.1 % (11.6-17.2); WHITE BLOOD COUNT 14.8 TH/MM3 (4.0-11.0)
[2017-06-27 04:50] LABS: HEMO FLAGS DIFF FINAL
[2017-06-27 05:11] LABS: ALKALINE PHOSPHATASE 80 U/L (45-117); ALT (GPT) 11 U/L (12-78); ANION GAP 11 MEQ/L (5-15); AST (GOT) 8 U/L (15-37); BICARBONATE 19.2 MEQ/L (21.0-32.0); BLOOD UREA NITROGEN 16 MG/DL (7-18); CHLORIDE 104 MEQ/L (98-107); GLOMERULAR FILTRATION RATE 178 ML/MIN (>89); SODIUM (NA) 134 MEQ/L (136-145); TOTAL BILIRUBIN ADULT 0.7 MG/DL (0.2-1.0)
--- NOTE | 2017-06-27 06:39 | RADRPT ---
EXAM DATE/TIME: 06/27/2017 06:12 [facility] COMPARISON: No previous studies available for comparison. INDICATIONS : Fever starting today MEDICAL HISTORY : Hypertension. SURGICAL HISTORY : None. ENCOUNTER: Initial ACUITY: 1 day PAIN SCORE: 0/10 LOCATION: Bilateral chest FINDINGS: A single view of the chest demonstrates the lungs to be symmetrically aerated without evidence of mas s, infiltrate or effusion. The cardiomediastinal contours are unremarkable. Osseous structures are intact. CONCLUSION: 1. No acute cardiopulmonary disease. Taras Su MD on June 27, 2017 at 6:37 Board Certified Radiologist. This report was verified electronically.
--- NOTE | 2017-06-27 06:52 | MB ---
cc: ALBERTO SUAZO MD, ALAN S. M.D. DATE OF CONSULTATION 06/27/2017 The chart was reviewed and the patient was examined. HISTORY OF PRESENT ILLNESS The patient is a 47-year-old white man I am seeing for tachycardia. The patient has not followed with a regular doctor. He does have a history of hypertension. The patient came to the emergency room because of a number of days of increasing foot erythema and infection. He was tachycardic although EKG revealed only sinus tachycardia. He has been placed on initially Cardizem and intravenous antibiotics. The patient has no cardiac history of symptoms. PAST MEDICAL HISTORY Otherwise includes: 1. Hernia repair 2. Tonsillectomy 3. Just diagnosed diabetes. SOCIAL HISTORY He is a former drinker up to a few months ago and is single. He smokes one pack per day. ALLERGIES CODEINE AND CEPHALEXIN. REVIEW OF SYSTEMS Unremarkable except for the above. PHYSICAL EXAM On exam, temperature maximum of 100.2 degrees Fahrenheit. His heart rate is in the 90s now with normal blood pressure. He was initially hypertensive. MEDICATIONS List reviewed. PHYSICAL EXAM Right now, afebrile, vital signs stable. He is resting comfortably. HEAD, EYES, EARS, NOSE, AND THROAT: There are no xanthelasma and oropharyngeal mucosa normal. CHEST: Clear. NECK: JVD normal. CARDIAC: S1-S2, no murmurs or gallops. ABDOMEN: Benign. EXTREMITIES: Show no cyanosis, clubbing or edema. There is a bandage on his left foot. Pulses carotids without bruits. Radials 2+. Femorals and pedal is not felt because of positioning. EKG with sinus tachycardia. No acute abnormalities. Chest x-ray Was not obtained and is pending. CT of the foot shows soft tissue swelling with no evidence of destructive bone changes. LABORATORY DATA White count elevated at 16.6 initially. Potassium 4.0, creatinine 0.5, glucose 224 with hemoglobin A1c of 10.1. TSH normal. Liver functions normal. Toxicology with an elevated beta-hydroxybutyrate. ASSESSMENT/PLAN/PROBLEMS 1. Sinus tachycardia - There is no obvious cardiac source for this and this appears related to his sepsis. 2. Hypertension 3. Diabetes RECOMMENDATIONS 1. I would not treat the sinus tachycardia specifically, but more the underlying infection which I would leave to the primary service. 2. Risk factor modification per primary service with optimization of blood pressure, diabetes and he ideally should be on statin therapy with appropriate followup. I will not follow. Thank you this consultation. MD TAVO Mason/SAVITA /6:11 AM /6:46 AM
[2017-06-27] MEDS ORDERED: INSU1MIS15 (07:41)
[2017-06-27] MEDS ORDERED: GLUCTES12 (07:41)
[2017-06-27] MEDS ORDERED: GLUCKIT15 (07:41)
[2017-06-27] MEDS ORDERED: LANCETS1 MI1 (07:41)
[2017-06-27] MEDS: INSULIN ASPART SUPPLEMENTAL SCALE SQ SCH ×4 (09:16→20:28)
[2017-06-27] MEDS: SODIUM CHLORIDE 0.9% FLUSH 10 ML FLUSH IV FLUSH SCH ×2 (09:16→20:25)
[2017-06-27] MEDS: INSULIN DETEMIR 100 UNITS/ML VIAL SQ SCH (09:38)
--- NOTE | 2017-06-27 10:46 | RADRPT ---
EXAM DATE/TIME: 06/26/2017 00:00 [facility] COMPARISON: No previous studies available for comparison. INDICATIONS : Severe sepsis 2/2 cellulitis, diabetes mellitus, left toe ulcer TECHNIQUE: Five-station segmental examination of the lower extremities was performed. Pulsed-cuff waveform tracings and pressures were recorded. Ankle-brachial indices and toe-brachial indices were calculated. PRESSURES (mmHg): Brachial (arm): Right IV SITE Left 179 Lower Thigh: Right 188 Left 192 Calf: Right 156 Left 172 Ankle: Right 142 Left 167 Toe: Right 129 Left 95 TRINI: Right 0.79 Left 0.93 TBI: Right 0.72 Left 0.53 PULSED CUFF WAVEFORMS: There is some amplitude blunting of the right ankle waveform. CONCLUSION: 1. Normal TRINI on the left. 2. Slightly diminished TRINI on the right. Ratio suggests mild PAD. 3. Abnormal TBI as bilaterally, left worse than right. Aristeo Hayden MD on June 27, 2017 at 10:42 Board Certified Radiologist. This report was verified electronically.
[2017-06-27] MEDS: LISINOPRIL 10 MG TAB PO SCH (13:47)
[2017-06-27] MEDS: VANCOMYCIN INJ 1,500 MG in SODIUM CHLORID 0.9% 500 ML INJ 500 ML IV SCH ×2 (13:48→20:21)
[2017-06-27] MEDS: CALCIUM CARBONATE 500 MG CHEWABLE TAB CHEW PRN (16:56)
--- NOTE | 2017-06-27 18:19 | EKG ---
Date Performed: 06/26/2017 Time Performed: 16:16:46 PTAGE: 47 years EKG: ATRIAL FLUTTER/TACHYCARDIA WITH RAPID VENTRICULAR RESPONSE INDETERMINATE AXIS PATTERN CONSI STENT WITH PULMONARY DISEASE ABNORMAL ECG NO PREVIOUS TRACING DOCTOR: Aldo Saucedo Interpretating Date/Time 06/27/2017 18:15:03
--- NOTE | 2017-06-27 19:20 | HHI.PR ---
Subjective Remarks Patient seen this afternoon around 4 PM. Says he is feeling all right. Denies any chest pain or shortness of breath. She says she has been instructed on how to inject insulin and feels he can do this at home when discharged. Objective Vital Signs Date Time Temp Pulse Resp B/P (MAP) Pulse Ox O2 Delivery O2 Flow Rate FiO2 06/27/17 16:00 98 06/27/17 16:00 98 23 161/66 (97) 06/27/17 16:00 98.4 06/27/17 12:00 104 06/27/17 12:00 104 22 164/97 (119) 06/27/17 11:16 98.1 06/27/17 11:00 100 23 151/86 (107) 06/27/17 10:00 102 06/27/17 10:00 102 20 149/80 (103) 06/27/17 09:00 102 20 179/93 (121) 06/27/17 08:00 102 21 165/93 (117) 98 06/27/17 08:00 92 06/27/17 07:48 97.6 06/27/17 07:00 92 23 140/78 (98) 06/27/17 06:01 100 23 132/79 (96) 06/27/17 06:00 98 06/27/17 05:30 96 21 132/80 (97) 06/27/17 05:15 96 19 139/82 (101) 06/27/17 05:00 94 21 133/81 (98) 06/27/17 04:30 98 18 126/70 (88) 06/27/17 04:15 98 20 113/68 (83) 06/27/17 04:09 101 118/66 06/27/17 04:00 102 06/27/17 04:00 98.9 102 22 118/66 (83) 98 06/27/17 03:45 102 22 123/66 (85) 06/27/17 03:30 104 20 119/65 (83) 06/27/17 03:15 106 22 130/65 (86) 06/27/17 03:00 106 21 125/84 (98) 06/27/17 02:45 106 20 133/75 (94) 06/27/17 02:30 110 20 137/75 (95) 06/27/17 02:00 114 06/27/17 02:00 114 23 177/90 (119) 06/27/17 01:45 108 34 158/67 (97) 06/27/17 01:30 110 14 145/65 (91) 06/27/17 01:15 102 10 155/93 (113) 06/27/17 01:00 100 3 156/90 (112) 06/27/17 00:45 106 9 164/96 (118) 06/27/17 00:30 104 7 161/91 (114) 06/27/17 00:15 108 9 172/93 (119) 06/27/17 00:00 110 06/27/17 00:00 110 8 178/92 (120) 06/26/17 23:45 99.6 122 27 182/94 (123) 94 06/26/17 23:45 99.9 122 27 182/94 (123) 94 06/26/17 23:30 104 26 133/104 (114) 06/26/17 23:30 104 26 133/104 (114) 06/26/17 23:15 112 10 128/70 (89) 06/26/17 23:15 112 10 128/70 (89) 06/26/17 23:00 118 06/26/17 23:00 118 18 151/88 (109) 06/26/17 23:00 118 18 151/88 (109) 06/26/17 22:47 122 159/89 06/26/17 22:45 122 25 159/89 (112) 06/26/17 22:45 122 25 159/89 (112) 06/26/17 22:30 118 25 148/82 (104) 06/26/17 22:30 118 25 148/82 (104) 06/26/17 22:19 99.2 122 24 152/81 (104) 95 06/26/17 22:19 122 06/26/17 22:19 99.2 122 24 152/81 (104) 95 06/26/17 22:15 124 06/26/17 21:55 99.2 116 16 155/90 (111) 94 06/26/17 21:48 125 190/100 06/26/17 21:40 99.2 134 16 190/102 (131) 95 06/26/17 20:00 100.2 125 20 174/102 (126) 94 I/O 06/26/17 06/26/17 06/26/17 06/27/17 06/27/17 06/27/17 07:00 15:00 23:00 07:00 15:00 23:00 Intake Total 2150 ml 1772.58 ml 1874 ml 1065 ml 1270 ml Output Total 2 ml 600 ml 1200 ml Balance 2150 ml 1772.58 ml 1872 ml 465 ml 70 ml Intake Oral 360 ml 480 ml 660 ml 240 ml IV Total 2150 ml 1412.58 ml 1394 ml 405 ml 1030 ml Output Urine Total 1 ml 600 ml 1200 ml Stool Total 1 ml # Voids 1 Result Diagram: 06/27/1742906/27/17429 Objective Remarks GENERAL: patient sitting up in bed. Appears comfortable Alert and oriented 3. SKIN: Warm and dry. HEAD: Normocephalic. EYES: No scleral icterus. No injection or drainage. NECK: Supple, trachea midline. No JVD. CARDIOVASCULAR: Regular rate and rhythm without murmurs, gallops, or rubs. RESPIRATORY: Breath sounds equal bilaterally. No accessory muscle use. GASTROINTESTINAL: Abdomen soft, non-tender, nondistended. MUSCULOSKELETAL: No cyanosis. left foot with ulcer draining brownish pus. Erythema stable from admission. BACK: Nontender without obvious deformity. No CVA tenderness. A/P Assessment and Plan //Severe Sepsis Leukocytosis 16.6, tachycardia 150 on admission. Lactate 2.2. Diabetic foot ulcer with cellulitis. -Status post multiple IV fluid boluses. Continue broad-spectrum antibiotics. Close monitoring of vitals. Follow-up blood and wound culture. //Sinus tachycardia -Appears sinus on telemetry. Appears to be out of proportion to current sepsis. -Slightly improved from heart rate of 150 to 130s with IV fluids. Urine drugs ordered and pending. = Discussed with cardiology today. Although on telemetry it appeared to be sinus tachycardia, the electrocardiogram appeared to be atrial flutter on admission, and so cardiology was consultedsays this is sinus tachycardia. Nonetheless, heart rate has improved with fluids. //Gram-positive bacteremia. Blood cultures from admission with gram-positive cocci. Repeat cultures, echocardiogram ordered. Infectious disease consultation. //diabetic ulcer of left foot with cellulitis //Initially with concern for hasn't fasciitis per discussion with ER. -Foot x-ray negative for air. -We ordered CT exam which is negative for necrotizing fasciitis. -Continue vancomycin and Zosyn. -Appreciate podiatry assistance. Continue to monitor. Wound cultures pending. //Hyperglycemia //New-onset diabetes -Glucose of 413 on admission. -Status post IV insulin in the ER. -A1c ordered and pending. -Start diabetic diet and insulin sliding scale. = 06/27. A1c 10.1. Adjusting insulin. Continue diabetic diet and insulin sliding scale. Add Levemir. //Hypertensive. //History of alcoholism. -Systolic blood pressure in the 180s upon arrival to floor. Unknown baseline. - Patient reports history of extremely heavy alcohol use having quit several months ago. His mother is present in the room, and I suspect he may have not quit. He does have a tremor which she says is chronic. We'll order CIWA protocol. = Blood pressure acceptable in the 150s. Continue CIWA protocol. //Tobacco abuse. Cessation counseling provided. DVT prophylaxis. SCDs Discharge Planning patient with gram-positive bacteremia. Follow-up echo, repeat cultures -We'll need diabetic supplies on discharge. Carlo Rizzo MD Jun 27, 2017 19:20
[2017-06-27] MEDS: FAMOTIDINE 20 MG TAB PO SCH (20:25)
[2017-06-28] VITALS (11 sets, daily range): BP systolic 155–185; BP diastolic 76–88; PULSE 84–122; RESP 18–25; TEMP 97.7–98.8; O2SAT 97–99
[2017-06-28] MEDS: PIPERACIL-TAZO 3.375 GM PREMIX 50 ML IV SCH ×4 (00:17→17:17)
[2017-06-28] MEDS: SODIUM CHLOR 0.9% 1000 ML INJ 1,000 ML IV SCH (00:17)
[2017-06-28] MEDS: cloNIDine HCL 0.1 MG TAB PO PRN (04:50)
[2017-06-28] MEDS: VANCOMYCIN INJ 1,500 MG in SODIUM CHLORID 0.9% 500 ML INJ 500 ML IV SCH ×3 (04:50→21:44)
[2017-06-28] MEDS: CALCIUM CARBONATE 500 MG CHEWABLE TAB CHEW PRN (04:51)
[2017-06-28 05:50] LABS: AUTOMATED NEUTROPHIL # 9.1 TH/MM3 (1.8-7.7); BASOPHIL # 0.1 TH/MM3 (0-0.2); BASOPHIL % 0.8 % (0.0-2.0); EOSINOPHIL # 0.2 TH/MM3 (0-0.4); HEMATOCRIT 35.5 % (39.0-51.0); HEMO FLAGS DIFF FINAL; LYMPH % 15.6 % (9.0-44.0); LYMPHOCYTE # 1.9 TH/MM3 (1.0-4.8); MEAN CELL VOLUME 81.3 FL (80.0-100.0); MEAN CORPUSCULAR HGB CONC 33.2 % (32.0-36.0); MONO % 7.7 % (0.0-8.0); NEUT % 73.9 % (16.0-70.0); PLATELET COUNT 241 TH/MM3 (150-450); RED BLOOD COUNT 4.36 MIL/MM3 (4.50-5.90); RED CELL DISTRIBUTION WIDTH 12.3 % (11.6-17.2); WHITE BLOOD COUNT 12.2 TH/MM3 (4.0-11.0)
[2017-06-28 05:57] LABS: POTASSIUM 3.6 MEQ/L (3.5-5.1)
[2017-06-28 06:00] LABS: BICARBONATE 20.8 MEQ/L (21.0-32.0); MAGNESIUM 1.8 MG/DL (1.5-2.5)
[2017-06-28] MEDS: INSULIN ASPART SUPPLEMENTAL SCALE SQ SCH ×4 (08:00→21:00)
[2017-06-28] MEDS: LISINOPRIL 10 MG TAB PO SCH ×2 (09:22→21:49)
[2017-06-28] MEDS: INSULIN DETEMIR 100 UNITS/ML VIAL SQ SCH (09:23)
[2017-06-28] MEDS: SODIUM CHLORIDE 0.9% FLUSH 10 ML FLUSH IV FLUSH SCH ×2 (09:23→21:48)
--- NOTE | 2017-06-28 09:32 | HHI.PR ---
Subjective Remarks Patient seen and examined today for follow-up on newly diagnosed diabetes, diabetic toe wound. Patient had positive blood cultures overnight. He remains afebrile. Leukocytosis is improving Objective Vitals Vital Signs Date Time Temp Pulse Resp B/P (MAP) Pulse Ox O2 Delivery O2 Flow Rate FiO2 06/28/17 08:00 98.8 94 20 155/76 (102) 97 06/28/17 05:00 110 25 185/88 (120) 06/28/17 05:00 110 06/28/17 04:56 98 19 159/84 (109) 06/28/17 04:02 106 25 169/79 (109) 99 06/28/17 04:02 106 06/28/17 04:00 122 06/28/17 02:00 84 06/28/17 00:00 98 06/28/17 00:00 99 06/27/17 23:32 99.1 94 22 161/85 (110) 06/27/17 22:00 94 06/27/17 20:00 99.4 100 21 176/87 (116) 06/27/17 20:00 101 06/27/17 20:00 99 06/27/17 19:38 100 21 176/87 (116) 06/27/17 16:00 98 06/27/17 16:00 98 23 161/66 (97) 06/27/17 16:00 98.4 06/27/17 12:00 104 06/27/17 12:00 104 22 164/97 (119) 06/27/17 11:16 98.1 06/27/17 11:00 100 23 151/86 (107) 06/27/17 10:00 102 06/27/17 10:00 102 20 149/80 (103) I/O 06/27/17 06/27/17 06/27/17 06/28/17 06/28/17 06/28/17 07:00 15:00 23:00 07:00 15:00 23:00 Intake Total 1874 ml 1065 ml 1785 ml 3017 ml Output Total 2 ml 600 ml 1200 ml 600 ml Balance 1872 ml 465 ml 585 ml 2417 ml Intake Oral 480 ml 660 ml 240 ml 480 ml IV Total 1394 ml 405 ml 1545 ml 2537 ml Output Urine Total 1 ml 600 ml 1200 ml 600 ml Stool Total 1 ml # Voids 1 2 Result Diagram: 06/28/17 0543 06/28/1743 Objective Remarks GENERAL: Well-developed, well-nourished, in no acute distress. alert and orientated HEENT: Head is normocephalic without any lesions or masses noted. Facial features are symmetric. Eyes: Extraocular muscles are intact. Conjunctivae were clear. Dentition in poor repair NECK: Supple without any masses. Trachea midline no deviation. No JVD, no bruits are appreciated CARDIAC: Regular rhythm, regular rate. S1/S2 are heard. No murmurs gallops or rubs. LUNGS: Clear to auscultation bilaterally. No wheeze, rhonchi or rales. No use of accessory muscles on inspiration or expiration. ABDOMEN: Soft, nontender. Nondistended. Bowel sounds heard in all 4 quadrants. No organomegaly or masses. Negative rebound, negative guarding EXTREMITIES: No edema, pulses are equal bilaterally. No cyanosis or clubbing NEUROLOGY: Mood and affect appear appropriate. Cranial nerves II through XII grossly intact. Moving all extremities, speech is clear RIGHT FOOT: Patient does have a ulceration was on the plantar surface of his first digit with significant foul smell, yellow to brown drainage Urinary Catheter: No Vascular Central Line Catheter: No A/P Assessment and Plan Severe Sepsis, no longer with sepsis criteria Patient presented with Leukocytosis 16.6, tachycardia 150. Lactate 2.2. Diabetic foot ulcer with cellulitis. Status post multiple IV fluid boluses. Continue vancomycin and Zosyn Blood cultures positive with gram-positive cocci Wound culture pending Gram-positive bacteremia 2/4 positive blood cultures gram-positive cocci Likely secondary to diabetic toe infection Awaiting echocardiogram Infectious disease consulted Diabetic ulcer of left foot with cellulitis Initially with concern for hasn't fasciitis per discussion with ER. Foot x-ray negative for air. CT exam which is negative for necrotizing fasciitis. Continue vancomycin and Zosyn. Podiatry following the patient Obtain ESR, C-reactive protein Sinus tachycardia Sinus tachycardia on telemetry. Improving with treatment of sepsis, new-onset diabetes Cardiology consulted who indicated sinus tachycardia secondary to infection electrocardiogram appeared to be atrial flutter on admission however cardiology indicated sinus tachycardia. New onset diabetes with presenting Hyperglycemia Glucose of 413 on admission. Status post IV insulin in the ER. Hemoglobin A1c 10.1 Levemir 5 mg daily Accu-Cheks with sliding scale insulin Diabetic diet Patient has undergone education by elementary educator, dietitian Case management consulted for diabetic DME equipment Hypertension Patient started on lisinopril 10 mg daily Continue monitor blood pressure and adjust medications accordingly History of alcoholism. Patient reports history of extremely heavy alcohol use having quit several months ago. CIWA protocol was initiated, patient is not required any treatment will discontinue at this time Tobacco abuse. Cessation counseling provided. DVT prophylaxis. Sequential compression devices Buddy Craft Jun 28, 2017 09:32
[2017-06-28] MEDS ORDERED: PHARMACY ORDERED LAB ONE ×2 (12:45→14:45)
[2017-06-28] MEDS ORDERED: GADODIAMIDE PF 287 MG/ML 20 ML VIAL (for RAD MRI) IV PUSH ONE (13:56)
--- NOTE | 2017-06-28 16:10 | RADRPT ---
EXAM DATE/TIME: 06/28/2017 13:10 [place] COMPARISON: CT FOOT LEFT W CONTRAST, June 26, 2017, 13:58. FOOT LEFT LIMITED (2VWS), June 26, 2017, 12:2 8. INDICATIONS : Left foot pain, redness and swelling x 3days. Draining from plantar surface of great toe. CONTRAST: 20 cc Omniscan (gadodiamide) IV MEDICAL HISTORY : Hypertension. Diabetes mellitus type 2. SURGICAL HISTORY : Tonsillectomy. Inguinal hernia repair. ENCOUNTER: Initial ACUITY: 2 day PAIN SCORE: 3/10 LOCATION: Left foot. TECHNIQUE: Multiplanar, multisequence MRI examination was performed without contrast and after the intravenous a dministration of gadolinium. FINDINGS: There is mild increased T2 signal and mild enhancement within the first digit proximal phalanx with p ossible mild degree of increased T2 signal within the first digit distal phalanx without any associat ed definite enhancement. These bones continue to demonstrate mostly normal T1 signal. There is enhanc ement of the skin and subcutaneous tissues of the of first digit. Laterally adjacent to the distal ph alanx there is hypoenhancement and heterogeneous T2 signal. The first flexor tendon demonstrates a no rmal appearance. There is edema within the plantar aspect of the foot surrounding the musculature. Th e bones of the hindfoot and midfoot demonstrate no abnormality. CONCLUSION: 1. There is heterogeneous enhancement and signal within the distal aspect of the first digit particul yuri along the lateral aspect. However, no fluid collection or abscess is appreciated. 2. There is a mild degree of abnormal signal and enhancement within the first digit proximal phalanx but it does not definitely meet imaging criteria to confidently diagnose osteomyelitis. Suggest [facility] MRI if symptoms persist. Enrique Lane MD on June 28, 2017 at 16:01 Board Certified Radiologist. This report was verified electronically.
--- NOTE | 2017-06-28 17:13 | ECHRPT ---
Indication: R/O VEGETATION CONCLUSIONS Normal left ventricular size. Wall thickness is measured at the upper limits of normal. The left ventricular systolic function is grossly normal on limited imaging. The right ventriclar size is upper limits of normal. Trace mitral valve regurgitation. There is trace tricuspid valve regurgitation. The pulmonary valve is not well visualized. BP: 185 / 88 HR: Rhythm: Sinus MEASUREMENTS (Male / Female) Normal Values Technical Quality:Fair 2D ECHO LV Diastolic Diameter PLAX 5.3 cm 4.2 - 5.9 / 3.9 - 5.3 cm LV Systolic Diameter PLAX 3.4 cm IVS Diastolic Thickness 1.0 cm 0.6 - 1.0 / 0.6 - 0.9 cm LVPW Diastolic Thickness 1.0 cm 0.6 - 1.0 / 0.6 - 0.9 cm LV Relative Wall Thickness 0.4 LVOT Diameter 2.5 cm Aortic Root Diameter 3.5 cm LA Systolic Diameter LX 3.4 cm 3.0 - 4.0 / 2.7 - 3.8 cm M-MODE AV Cusp Separation MM 2.6 cm DOPPLER AV Peak Velocity 114.0 cm/s AV Peak Gradient 5.2 mmHg AV Mean Gradient 3.0 mmHg AV Velocity Time Integral 20.0 cm LVOT Peak Velocity 82.7 cm/s LVOT Peak Gradient 2.7 mmHg LVOT Velocity Time Integral 16.9 cm AV Area Cont Eq vti 4.1 cm AV Area Cont Eq pk 3.6 cm Mitral E Point Velocity 52.8 cm/s Mitral A Point Velocity 74.0 cm/s Mitral E to A Ratio 0.7 LV E' Lateral Velocity 6.3 cm/s Mitral E to LV E' Lateral Ratio 8.3 LV E' Septal Velocity 7.2 cm/s Mitral E to LV E' Septal Ratio 7.3 TR Peak Velocity 257.0 cm/s TR Peak Gradient 26.4 mmHg Right Atrial Pressure 10.0 mmHg Pulmonary Artery Systolic Pressu 36.4 mmHg Right Ventricular Systolic Press 36.4 mmHg PV Peak Velocity 80.5 cm/s PV Peak Gradient 2.6 mmHg FINDINGS LEFT VENTRICLE Normal left ventricular size. Wall thickness is measured at the upper limits of normal. The left ventricular systolic function is grossly normal on limited imaging. RIGHT VENTRICLE The right ventriclar size is upper limits of normal. LEFT ATRIUM The left atrial size is normal. RIGHT ATRIUM The right atrial size is normal. ATRIAL SEPTUM Normal atrial septal thickness without atrial level shunting by limited color doppler interrogation. AORTA The aortic root and proximal ascending aorta are normal in size on limited imaging. MITRAL VALVE Trace mitral valve regurgitation. AORTIC VALVE Trileaflet aortic valve. No aortic valve stenosis or regurgitation. TRICUSPID VALVE There is trace tricuspid valve regurgitation. PULMONARY VALVE The pulmonary valve is not well visualized. VESSELS The inferior vena cava is normal in size. PERICARDIUM No pericardial effusion. Rudolph Hanson MD, FACC (Electronically Signed) Final Date:28 June 2017 17:12
[2017-06-28] MEDS: FAMOTIDINE 20 MG TAB PO SCH (21:48)
--- NOTE | 2017-06-28 23:10 | PD.CONS ---
History of Present Illness Service Infectious disease Consult Requested By Dr Rizzo Reason for Consult Foot infection Primary Care Physician No Primary Care Physician Diagnoses: (1) Severe sepsis (2) Cellulitis of foot (3) Diabetes mellitus, new onset History of Present Illness 47/ M came in because of swelling and redness of his left big toe / foot. He is not really how it started but he has a ulcer on left big toe that is draining. He noticed worsening redness and swelling 3 days before admission. He was found to have a sugar >400 on admission. Patient says he is better today. No pain in foot. Low grade fever on admission. Review of Systems Constitutional: COMPLAINS OF: Fever, DENIES: Chills Endocrine: COMPLAINS OF: Polyuria, DENIES: Heat/cold intolerance Eyes: DENIES: Diplopia, Eye inflammation, Eye pain Ears, nose, mouth, throat: DENIES: Hearing loss, Throat pain, Hoarseness Respiratory: DENIES: Cough, Sputum production, Shortness of breath Cardiovascular: DENIES: Chest pain, Palpitations Gastrointestinal: DENIES: Bloody stools, Diarrhea Genitourinary: DENIES: Urinary frequency, Dysuria Musculoskeletal: DENIES: Muscle aches Integumentary: COMPLAINS OF: Abnormal pigmentation Neurologic: DENIES: Headache, Localized weakness Psychiatric: DENIES: Confusion, Mood changes Past Family Social History Allergies: Coded Allergies: cephalexin (Unverified Allergy, Unknown, 06/26/17) codeine (Unverified Allergy, Unknown, 06/26/17) Past Medical History Past Medical History History of chronic allergies for which patient takes [id number] antihistamine Past Surgical History Inguinal hernia repair as a child Tonsillectomy Reported Medications takes [id number] antihistamine. Allergies: Coded Allergies: cephalexin (Unverified Allergy, Unknown, 06/26/17) codeine (Unverified Allergy, Unknown, 06/26/17) Family History Mother with type 2 diabetes, hypertension. Father with chronic leukocytic leukemia. Social History Patient's smoked one pack per day for past 27 years. Patient reports history of heavy alcohol use drinking a case of beer per day, however quit 3 months ago. Denies any illicit drugs. 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 Physical Exam Vital Signs Vital Signs Date Time Temp Pulse Resp B/P (MAP) Pulse Ox O2 Delivery O2 Flow Rate FiO2 06/28/17 20:00 97.7 93 20 174/85 (114) 99 06/28/17 16:00 98.0 95 18 165/88 (113) 99 06/28/17 12:30 98.2 101 18 178/81 (113) 97 06/28/17 08:00 98.8 94 20 155/76 (102) 97 06/28/17 08:00 87 06/28/17 05:00 110 25 185/88 (120) 06/28/17 05:00 110 06/28/17 04:56 98 19 159/84 (109) 06/28/17 04:02 106 25 169/79 (109) 99 06/28/17 04:02 106 06/28/17 04:00 122 06/28/17 02:00 84 06/28/17 00:00 98 06/28/17 00:00 99 06/27/17 23:32 99.1 94 22 161/85 (110) Physical Exam GENERAL: This is a acutely ill patient, in no apparent distress. SKIN: Left foot erythematous and left big toe with ulcer and draining - foul smelling HEAD: Atraumatic. Normocephalic. No temporal or scalp tenderness. EYES: Pupils equal round and reactive. Extraocular motions intact. No scleral icterus. No injection or drainage. ENT: Nose without bleeding, purulent drainage or septal hematoma. Throat without erythema, tonsillar hypertrophy or exudate. Uvula midline. Airway patent. NECK: Trachea midline. No JVD or lymphadenopathy. Supple, nontender, no meningeal signs. CARDIOVASCULAR: Regular rate and rhythm without murmurs, gallops, or rubs. RESPIRATORY: Clear to auscultation. Breath sounds equal bilaterally. No wheezes , rales, or rhonchi. GASTROINTESTINAL: Abdomen soft, non-tender, nondistended. No hepato-splenomegaly , or palpable masses. No guarding. MUSCULOSKELETAL: Left foot cellulitis - with deep ulcer on left big toe- foul smell No calf tenderness. Negative Homans sign bilaterally. NEUROLOGICAL: Awake and alert. Cranial nerves II through XII intact. Motor and grossly within normal limits. Five out of 5 muscle strength in all muscle groups. Normal speech.Peripheral neuropathy Laboratory Laboratory Tests Test 06/28/17 05:43 06/28/17 14:03 White Blood Count 12.2 Red Blood Count 4.36 Hemoglobin 11.8 Hematocrit 35.5 Mean Corpuscular Volume 81.3 Mean Corpuscular Hemoglobin 27.0 Mean Corpuscular Hemoglobin Concent 33.2 Red Cell Distribution Width 12.3 Platelet Count 241 Mean Platelet Volume 8.1 Neutrophils (%) (Auto) 73.9 Lymphocytes (%) (Auto) 15.6 Monocytes (%) (Auto) 7.7 Eosinophils (%) (Auto) 2.0 Basophils (%) (Auto) 0.8 Neutrophils # (Auto) 9.1 Lymphocytes # (Auto) 1.9 Monocytes # (Auto) 0.9 Eosinophils # (Auto) 0.2 Basophils # (Auto) 0.1 CBC Comment DIFF FINAL Differential Comment Erythrocyte Sedimentation Rate 56 Blood Urea Nitrogen 9 Creatinine 0.47 0.55 Random Glucose 155 Albumin 2.2 Calcium Level 8.0 Phosphorus Level 2.0 Magnesium Level 1.8 Sodium Level 133 Potassium Level 3.6 Chloride Level 103 Carbon Dioxide Level 20.8 Anion Gap 9 Estimat Glomerular Filtration Rate 191 160 C-Reactive Protein 11.00 Vancomycin Level Trough 13.0 Date/Time Source Procedure Growth Status 06/27/17 23:55 Blood Peripheral Aerobic Blood Culture Pending Received 06/27/17 23:55 Blood Peripheral Anaerobic Blood Culture Pending Received 06/26/17 13:50 Wound Toe Gram Stain - Final Complete 06/26/17 13:50 Wound Culture - Final Pseudomonas Aeruginosa Complete Result Diagram: 06/28/17 0543 06/28/17 1403 Assessment and Plan Problem List: (1) Severe sepsis ICD Codes: A41.9 - Sepsis, unspecified organism; R65.20 - Severe sepsis without septic shock Status: Acute Plan: Follow blood culture Follow wound cultures IV Vancomycin IV Zosyn Check MRI left foot (2) Diabetes mellitus, new onset ICD Codes: E11.9 - Type 2 diabetes mellitus without complications (3) Diabetic foot ulcer ICD Codes: E11.621 - Type 2 diabetes mellitus with foot ulcer; L97.509 - Non- pressure chronic ulcer of other part of unspecified foot with unspecified severity Status: Acute (4) Cellulitis of foot ICD Codes: L03.119 - Cellulitis of unspecified part of limb; R65.20 - Severe sepsis without septic shock Status: Acute Problem Qualifiers (1) Diabetic foot ulcer: Qualified Codes: E11.621 - Type 2 diabetes mellitus with foot ulcer; L97.521 - Non-pressure chronic ulcer of other part of left foot limited to breakdown of skin Dona Levin MD Jun 28, 2017 23:10
[2017-06-29] VITALS (8 sets, daily range): BP systolic 150–181; BP diastolic 78–93; PULSE 87–94; RESP 18–20; TEMP 97.5–98.7; O2SAT 97–99
[2017-06-29] MEDS: PIPERACIL-TAZO 3.375 GM PREMIX 50 ML IV SCH ×4 (01:14→17:10)
[2017-06-29] MEDS: VANCOMYCIN INJ 1,500 MG in SODIUM CHLORID 0.9% 500 ML INJ 500 ML IV SCH ×3 (03:34→20:40)
[2017-06-29] MEDS: cloNIDine HCL 0.1 MG TAB PO PRN ×2 (05:50→12:17)
[2017-06-29 07:14] LABS: AUTOMATED NEUTROPHIL # 5.5 TH/MM3 (1.8-7.7); BASOPHIL % 0.5 % (0.0-2.0); EOSINOPHIL # 0.3 TH/MM3 (0-0.4); EOSINOPHIL % 3.3 % (0.0-4.0); HEMATOCRIT 34.4 % (39.0-51.0); HEMO FLAGS DIFF FINAL; LYMPH % 20.2 % (9.0-44.0); LYMPHOCYTE # 1.7 TH/MM3 (1.0-4.8); MEAN CELL VOLUME 82.5 FL (80.0-100.0); MEAN CORPUSCULAR HEMOGLOBIN 28.9 PG (27.0-34.0); MONO % 9.7 % (0.0-8.0); NEUT % 66.3 % (16.0-70.0); PLATELET COUNT 233 TH/MM3 (150-450); RED BLOOD COUNT 4.17 MIL/MM3 (4.50-5.90); RED CELL DISTRIBUTION WIDTH 12.3 % (11.6-17.2); WHITE BLOOD COUNT 8.3 TH/MM3 (4.0-11.0)
[2017-06-29 07:22] LABS: POTASSIUM 3.3 MEQ/L (3.5-5.1)
[2017-06-29 07:29] LABS: BICARBONATE 24.4 MEQ/L (21.0-32.0); MAGNESIUM 1.9 MG/DL (1.5-2.5)
[2017-06-29] MEDS: INSULIN ASPART SUPPLEMENTAL SCALE SQ SCH ×4 (08:00→21:00)
[2017-06-29] MEDS: INSULIN DETEMIR 100 UNITS/ML VIAL SQ SCH (09:16)
[2017-06-29] MEDS: LISINOPRIL 10 MG TAB PO SCH ×2 (09:16→20:38)
[2017-06-29] MEDS: SODIUM CHLORIDE 0.9% FLUSH 10 ML FLUSH IV FLUSH SCH ×2 (09:17→21:06)
[2017-06-29] MEDS ORDERED: POTASSIUM CHLORIDE 20 MEQ CONTROLLED RELEASE TAB PO ONE (10:00)
--- NOTE | 2017-06-29 11:24 | HHI.PR ---
Subjective Remarks Patient seen and examined today for follow-up on newly diagnosed diabetes, diabetic toe wound, sepsis. Patient remains afebrile, no leukocytosis. Patient states that he had a bowel movement today. Objective Vitals Vital Signs Date Time Temp Pulse Resp B/P (MAP) Pulse Ox O2 Delivery O2 Flow Rate FiO2 06/29/17 08:00 97.9 89 18 159/84 (109) 99 06/29/17 05:43 97.5 94 20 181/93 (122) 99 06/29/17 04:00 97.5 94 20 181/93 (122) 99 06/29/17 00:00 98.7 94 20 160/78 (105) 99 06/28/17 20:10 96 06/28/17 20:00 97.7 93 20 174/85 (114) 99 06/28/17 16:00 98.0 95 18 165/88 (113) 99 06/28/17 12:30 98.2 101 18 178/81 (113) 97 I/O 06/28/17 06/28/17 06/28/17 06/29/17 06/29/17 06/29/17 07:00 15:00 23:00 07:00 15:00 23:00 Intake Total 3017 ml 692 ml 1030 ml 50 ml Output Total 600 ml 1500 ml 300 ml 700 ml Balance 2417 ml -808 ml 730 ml -650 ml Intake Oral 480 ml 480 ml 480 ml IV Total 2537 ml 212 ml 550 ml 50 ml Output Urine Total 600 ml 1500 ml 300 ml 700 ml # Voids 2 4 3 # Bowel Movements 0 0 Result Diagram: 06/29/1763006/29/17630 Objective Remarks GENERAL: Well-developed, well-nourished, in no acute distress. alert and orientated HEENT: Head is normocephalic without any lesions or masses noted. Facial features are symmetric. Eyes: Extraocular muscles are intact. Conjunctivae were clear. Dentition in poor repair NECK: Supple without any masses. Trachea midline no deviation. No JVD, no bruits are appreciated CARDIAC: Regular rhythm, regular rate. S1/S2 are heard. No murmurs gallops or rubs. LUNGS: Clear to auscultation bilaterally. No wheeze, rhonchi or rales. No use of accessory muscles on inspiration or expiration. ABDOMEN: Soft, nontender. Nondistended. Bowel sounds heard in all 4 quadrants. No organomegaly or masses. Negative rebound, negative guarding EXTREMITIES: No edema, pulses are equal bilaterally. No cyanosis or clubbing NEUROLOGY: Mood and affect appear appropriate. Cranial nerves II through XII grossly intact. Moving all extremities, speech is clear RIGHT FOOT: Patient does have a ulceration was on the plantar surface of his first digit with significant foul smell, yellow to brown drainage Urinary Catheter: No Vascular Central Line Catheter: No A/P Assessment and Plan Severe Sepsis, no longer with sepsis criteria Patient presented with Leukocytosis 16.6, tachycardia 150. Lactate 2.2. Diabetic foot ulcer with cellulitis. Status post multiple IV fluid boluses. Continue vancomycin and Zosyn Blood cultures positive with gram-positive cocci Wound culture with Pseudomonas Gram-positive bacteremia 3/4 positive blood cultures gram-positive cocci Echocardiogram shows normal systolic function, no vegetation Infectious disease consulted Diabetic ulcer of left foot with cellulitis Initially with concern for hasn't fasciitis per discussion with ER. Foot x-ray negative for air. CT exam which is negative for necrotizing fasciitis. Continue vancomycin and Zosyn. Podiatry following the patient Obtain ESR, C-reactive protein Sinus tachycardia Sinus tachycardia on telemetry. Improving with treatment of sepsis, new-onset diabetes Cardiology consulted who indicated sinus tachycardia secondary to infection electrocardiogram appeared to be atrial flutter on admission however cardiology indicated sinus tachycardia. New onset diabetes with presenting Hyperglycemia Glucose of 413 on admission. Status post IV insulin in the ER. Hemoglobin A1c 10.1 Levemir 5 mg daily Accu-Cheks with sliding scale insulin, or required 6 units in 24 hours Diabetic diet Patient has undergone education by special educator, dietitian Case management consulted for diabetic DME equipment Hypertension Patient started on lisinopril 10 mg twice daily Start Lopressor 25 mg twice daily Continue monitor blood pressure and adjust medications accordingly History of alcoholism. Patient reports history of extremely heavy alcohol use having quit several months ago. Discontinued CIWA protocol was initiated, patient did not require any treatment Tobacco abuse. Cessation counseling provided. DVT prophylaxis. Sequential compression devices Buddy Craft Jun 29, 2017 11:24
[2017-06-29] MEDS: METOPROLOL TARTRATE 25 MG TAB PO SCH ×2 (12:17→20:38)
[2017-06-29] MEDS: FAMOTIDINE 20 MG TAB PO SCH (20:38)
[2017-06-29] MEDS: CALCIUM CARBONATE 500 MG CHEWABLE TAB CHEW PRN (20:39)
[2017-06-30] VITALS (8 sets, daily range): BP systolic 160–186; BP diastolic 81–94; PULSE 77–91; RESP 16–20; TEMP 97.2–99.5; O2SAT 97–99
[2017-06-30] MEDS: VANCOMYCIN INJ 1,500 MG in SODIUM CHLORID 0.9% 500 ML INJ 500 ML IV SCH ×3 (03:31→21:15)
[2017-06-30] MEDS: PIPERACIL-TAZO 3.375 GM PREMIX 50 ML IV SCH ×5 (06:11→23:55)
[2017-06-30] MEDS: METOPROLOL TARTRATE 25 MG TAB PO SCH ×2 (08:05→21:18)
[2017-06-30] MEDS: LISINOPRIL 10 MG TAB PO SCH ×2 (08:05→21:19)
[2017-06-30] MEDS: SODIUM CHLORIDE 0.9% FLUSH 10 ML FLUSH IV FLUSH SCH ×2 (08:05→21:18)
[2017-06-30] MEDS: INSULIN ASPART SUPPLEMENTAL SCALE SQ SCH ×5 (08:05→21:30)
[2017-06-30] MEDS: INSULIN DETEMIR 100 UNITS/ML VIAL SQ SCH (08:06)
[2017-06-30] MEDS: LACTOBACILLUS ACIDOPHILUS TAB PO SCH ×2 (08:12→21:18)
[2017-06-30] MEDS: CALCIUM CARBONATE 500 MG CHEWABLE TAB CHEW PRN (08:12)
--- NOTE | 2017-06-30 08:40 | HHI.PR ---
Subjective Remarks Patient seen and examined today for follow-up on new onset diabetes, diabetic toe infection, bacteremia. Patient is resting comfortably. He does indicate that he had some mild nausea and has developed some loose stools. Discussed with the patient about requesting Zofran if needed for the nausea. Counseled patient on development of loose stools while on antibiotics. Notified him I'll start probiotic to help. Objective Vital Signs Date Time Temp Pulse Resp B/P (MAP) Pulse Ox O2 Delivery O2 Flow Rate FiO2 06/30/17 04:00 97.7 88 17 163/91 (115) 97 06/30/17 00:00 98.0 91 18 160/82 (108) 98 06/29/17 20:10 88 06/29/17 16:00 97.9 89 20 162/91 (114) 97 06/29/17 13:00 88 18 150/92 (111) 98 06/29/17 12:00 98.6 87 18 176/90 (118) 98 I/O 06/29/17 06/29/17 06/29/17 06/30/17 06/30/17 06/30/17 07:00 15:00 23:00 07:00 15:00 23:00 Intake Total 50 ml 1410 ml 950 ml 1940 ml Output Total 700 ml 650 ml 953 ml Balance -650 ml 760 ml -3 ml 1940 ml Intake Oral 850 ml 950 ml 240 ml IV Total 50 ml 560 ml 1700 ml Output Urine Total 700 ml 650 ml 950 ml Stool Total 3 ml # Voids 3 Result Diagram: 06/29/1763006/29/1731 Objective Remarks GENERAL: Well-developed, well-nourished, in no acute distress. alert and orientated HEENT: Head is normocephalic without any lesions or masses noted. Facial features are symmetric. Eyes: Extraocular muscles are intact. Conjunctivae were clear. Dentition in poor repair NECK: Supple without any masses. Trachea midline no deviation. No JVD, no bruits are appreciated CARDIAC: Regular rhythm, regular rate. S1/S2 are heard. No murmurs gallops or rubs. LUNGS: Clear to auscultation bilaterally. No wheeze, rhonchi or rales. No use of accessory muscles on inspiration or expiration. ABDOMEN: Soft, nontender. Nondistended. Bowel sounds heard in all 4 quadrants. No organomegaly or masses. Negative rebound, negative guarding EXTREMITIES: No edema, pulses are equal bilaterally. No cyanosis or clubbing NEUROLOGY: Mood and affect appear appropriate. Cranial nerves II through XII grossly intact. Moving all extremities, speech is clear RIGHT FOOT: Patient does have a ulceration was on the plantar surface of his first digit with significant foul smell, yellow to brown drainage A/P Assessment and Plan Severe Sepsis, no longer with sepsis criteria Patient presented with Leukocytosis 16.6, tachycardia 150. Lactate 2.2. Diabetic foot ulcer with cellulitis. Status post multiple IV fluid boluses. Continue vancomycin and Zosyn Blood cultures positive Wound culture with Pseudomonas sensitive to Zosyn Gram-positive bacteremia 3/4 positive blood cultures 1 with staph coag negative, the other 2 with anaerobic gram-positive cocci Will need to wait for identification of bacteremia for appropriate treatment Repeat blood cultures negative for 1 day Echocardiogram shows normal systolic function, no vegetation Infectious disease following Diabetic ulcer of left foot with cellulitis Initially with concern for hasn't fasciitis per discussion with ER. Foot x-ray negative for air. CT exam which is negative for necrotizing fasciitis. Continue vancomycin and Zosyn. Podiatry following the patient Sedimentation rate 56 9 C-reactive protein 11 Sinus tachycardia, improved Sinus tachycardia on telemetry. Improving with treatment of sepsis, new-onset diabetes Cardiology consulted who indicated sinus tachycardia secondary to infection electrocardiogram appeared to be atrial flutter on admission however cardiology indicated sinus tachycardia. New onset diabetes with presenting Hyperglycemia Glucose of 413 on admission. Status post IV insulin in the ER. Hemoglobin A1c 10.1 Levemir 5 mg daily Accu-Cheks with sliding scale insulin, or required 9 units in 24 hours Diabetic diet Patient has undergone education by certified diabetes educator, dietitian Case management consulted for diabetic DME equipment Hypertension, new onset versus untreated Lisinopril 10 mg twice daily Lopressor 25 mg twice daily Continue monitor blood pressure and adjust medications accordingly History of alcoholism. Patient reports history of extremely heavy alcohol use having quit several months ago. Discontinued CIWA protocol was initiated, patient did not require any treatment Tobacco abuse. Cessation counseling provided. DVT prophylaxis. Sequential compression devices Buddy Craft Jun 30, 2017 08:40
--- NOTE | 2017-06-30 09:11 | HHI.IDPN ---
Subjective Subjective Remarks No fever No appetite Had diarrhea Antibiotics IV Vancomycin and Zosyn Lines Peripheral Past Medical History New onset Diabetes Allergies: Coded Allergies: cephalexin (Unverified Allergy, Unknown, 06/26/17) codeine (Unverified Allergy, Unknown, 06/26/17) Review of Systems Constitutional Constitutional Remarks No fever/ chills Objective . Vital Signs Date Time Temp Pulse Resp B/P (MAP) Pulse Ox O2 Delivery O2 Flow Rate FiO2 06/30/17 08:00 98.6 85 16 172/81 (111) 99 06/30/17 04:00 97.7 88 17 163/91 (115) 97 06/30/17 00:00 98.0 91 18 160/82 (108) 98 06/29/17 20:10 88 06/29/17 16:00 97.9 89 20 162/91 (114) 97 06/29/17 13:00 88 18 150/92 (111) 98 06/29/17 12:00 98.6 87 18 176/90 (118) 98 . Laboratory Tests Test 06/29/17 06:31 White Blood Count 8.3 TH/MM3 Red Blood Count 4.17 MIL/MM3 Hemoglobin 12.0 GM/DL Hematocrit 34.4 % Mean Corpuscular Volume 82.5 FL Mean Corpuscular Hemoglobin 28.9 PG Mean Corpuscular Hemoglobin Concent 35.0 % Red Cell Distribution Width 12.3 % Platelet Count 233 TH/MM3 Mean Platelet Volume 8.7 FL Neutrophils (%) (Auto) 66.3 % Lymphocytes (%) (Auto) 20.2 % Monocytes (%) (Auto) 9.7 % Eosinophils (%) (Auto) 3.3 % Basophils (%) (Auto) 0.5 % Neutrophils # (Auto) 5.5 TH/MM3 Lymphocytes # (Auto) 1.7 TH/MM3 Monocytes # (Auto) 0.8 TH/MM3 Eosinophils # (Auto) 0.3 TH/MM3 Basophils # (Auto) 0.0 TH/MM3 CBC Comment DIFF FINAL Differential Comment Laboratory Tests Test 06/28/17 14:03 06/29/17 06:31 Creatinine 0.55 MG/DL 0.46 MG/DL Estimat Glomerular Filtration Rate 160 ML/MIN 196 ML/MIN Blood Urea Nitrogen 4 MG/DL Random Glucose 140 MG/DL Calcium Level 8.2 MG/DL Magnesium Level 1.9 MG/DL Sodium Level 137 MEQ/L Potassium Level 3.3 MEQ/L Chloride Level 103 MEQ/L Carbon Dioxide Level 24.4 MEQ/L Anion Gap 10 MEQ/L Microbiology Date/Time Source Procedure Growth Status 06/27/17 23:55 Blood Peripheral Aerobic Blood Culture - Preliminary NO GROWTH IN 1 DAY Resulted 06/27/17 23:55 Blood Peripheral Anaerobic Blood Culture - Preliminary NO GROWTH IN 1 DAY Resulted Physical Exam GENERAL: This is a acutely ill patient, in no apparent distress. SKIN: Left foot erythema is less and left big toe with ulcer draining bloody drainage - less than before. Dorsal surface some tenderness below nail bed HEAD: Atraumatic. Normocephalic. No temporal or scalp tenderness. EYES: Pupils equal round and reactive. Extraocular motions intact. No scleral icterus. No injection or drainage. ENT: Nose without bleeding, purulent drainage or septal hematoma. Throat without erythema, tonsillar hypertrophy or exudate. Uvula midline. Airway patent. NECK: Trachea midline. No JVD or lymphadenopathy. Supple, nontender, no meningeal signs. CARDIOVASCULAR: Regular rate and rhythm without murmurs, gallops, or rubs. RESPIRATORY: Clear to auscultation. Breath sounds equal bilaterally. No wheezes , rales, or rhonchi. GASTROINTESTINAL: Abdomen soft, non-tender, nondistended. No hepato-splenomegaly , or palpable masses. No guarding. MUSCULOSKELETAL: Left foot cellulitis - with deep ulcer on left big toe- foul smell- some improvement. No calf tenderness. Negative Homans sign bilaterally. NEUROLOGICAL: Awake and alert. Cranial nerves II through XII intact. Motor and grossly within normal limits. Five out of 5 muscle strength in all muscle groups. Normal speech.Peripheral neuropathy Assessment & Plan Diagnosis: (1) Severe sepsis ICD Codes: A41.9 - Sepsis, unspecified organism; R65.20 - Severe sepsis without septic shock Status: Acute Plan: Blood culture- 1 bottle SCN ( likely contaminant) and 2 bottles - Anaerobic GPC ( need to follow) Wound cultures- Pseudomonas IV Vancomycin IV Zosyn Add Probiotic Reviewed MRI left foot (2) Cellulitis of foot ICD Codes: L03.119 - Cellulitis of unspecified part of limb; R65.20 - Severe sepsis without septic shock Status: Acute (3) Diabetes mellitus, new onset ICD Codes: E11.9 - Type 2 diabetes mellitus without complications Dona Levin MD Jun 30, 2017 09:11
[2017-06-30 10:09] LABS: POTASSIUM 3.4 MEQ/L (3.5-5.1)
[2017-06-30] MEDS: cloNIDine HCL 0.1 MG TAB PO PRN (15:43)
--- NOTE | 2017-06-30 17:37 | PD.POD ---
Subjective Podiatric Problems 47-year-old newly diagnosed diabetic with an infection of the left hallux and dorsal distal foot. Culture and sensitivity grew out pseudomonas. MRI was negative for bone infection. Pain scale used: 0-10 numeric scale Pain score: 1 Remarks 47-year-old male presented with signs of sepsis to the hospital and was admitted. He has been seen by myself and infectious disease. Culture of the foot wound grew out pseudomonas. Past Med/Surg/Social History Past Medical History Endocrine: REPORTS HX OF: Diabetes mellitus (patient did not know that he was diabetic) Social History Smoking Status: Current Every Day Smoker Additional Information Additional history Patient smokes at least 1 pack of cigarettes per day Review of Systems Musculoskeletal: COMPLAINS OF: Deformaties Objective Vital Signs Vital Signs Date Time Temp Pulse Resp B/P (MAP) Pulse Ox O2 Delivery O2 Flow Rate FiO2 06/30/17 17:10 84 180/86 (117) 06/30/17 16:00 97.2 85 16 173/81 (111) 98 06/30/17 12:00 99.5 77 16 186/84 (118) 98 06/30/17 08:01 82 06/30/17 08:00 98.6 85 16 172/81 (111) 99 06/30/17 04:00 97.7 88 17 163/91 (115) 97 06/30/17 00:00 98.0 91 18 160/82 (108) 98 06/29/17 20:10 88 Coded Allergies: cephalexin (Unverified Allergy, Unknown, 06/26/17) codeine (Unverified Allergy, Unknown, 06/26/17) Medications and IVs Current Medications Piperacillin Sod/ Tazobactam Sod 100 ml @ 200 mls/hr ONCE STAT IV Last administered on 06/26/17 13:30; Start 06/26/17 at 12:08; Stop 06/26/17 at 12:37 ; Status DC Clindamycin Phosphate 900 mg/ Sodium Chloride 106 ml @ 200 mls/hr ONCE STAT IV ; Start 06/26/17 at 12:08; Stop 06/26/17 at 12:42; Status DC Vancomycin HCl 1250 mg/Sodium Chloride 512.5 ml @ 257.5 mls/ hr ONCE STAT IV Last administered on 06/26/17 14:44; Start 06/26/17 at 12:08; Stop 06/26/17 at 14:07; Status DC Sodium Chloride 1,000 ml @ 1,000 mls/hr Q1H ONCE IV Last administered on 12:44; Start 06/26/17 at 12:08; Stop 06/26/17 at 13:07; Status DC Sodium Chloride 1,000 ml @ 1,000 mls/hr Q1H ONCE IV Last administered on 13:28; Start 06/26/17 at 12:08; Stop 06/26/17 at 13:07; Status DC Sodium Chloride 1,000 ml @ 1,000 mls/hr Q1H ONCE IV Last administered on 14:43; Start 06/26/17 at 12:08; Stop 06/26/17 at 13:07; Status DC Clindamycin Phosphate/Dextrose 50 ml @ 100 mls/hr STAT ONCE IV Last administered on 06/26/17 13:05; Start 06/26/17 at 13:00; Stop 06/26/17 at 13:29 ; Status DC Insulin Human Regular (NovoLIN R INJ) 10 units ONCE ONCE IV PUSH Last administered on 06/26/17 13:28; Start 06/26/17 at 13:15; Stop 06/26/17 at 13:16 ; Status DC Piperacillin Sod/ Tazobactam Sod 50 ml @ 100 mls/hr Q6H IV Last administered on 06/27/17 09:16; Start 06/26/17 at 20:00; Stop 06/27/17 at 11:26; Status DC Pharmacy Profile Note 0 ml @ 0 mls/hr UNSCH OTHER ; Start 06/26/17 at 13:45 Clindamycin Phosphate/Dextrose 50 ml @ 100 mls/hr Q6HR IV ; Start 06/26/17 at 18:00; Stop 06/26/17 at 18:00; Status DC Insulin Aspart (NovoLOG SUPPLEMENTAL SCALE) 1 ACHS SLIDING SCALE SQ Last administered on 06/30/17 17:13; Start 06/26/17 at 17:00 Sodium Chloride 1,000 ml @ 100 mls/hr Q10H IV Last administered on 06/28/17 00:17; Start 06/26/17 at 13:38; Stop 06/28/17 at 07:29; Status DC Sodium Chloride (NS Flush) 2 ml UNSCH PRN IV FLUSH FLUSH AFTER USING IV ACCESS ; Start 06/26/17 at 13:45 Sodium Chloride (NS Flush) 2 ml BID IV FLUSH Last administered on 06/30/17 08 :05; Start 06/26/17 at 21:00 Ondansetron HCl (Zofran Inj) 4 mg Q6H PRN IVP NAUSEA OR VOMITING Last administered on 06/26/17 21:09; Start 06/26/17 at 13:45 Naloxone HCl (Narcan Inj) 0.4 mg UNSCH PRN IV PUSH SEE LABEL COMMENTS; Start 06/26/17 at 13:45 Magnesium Hydroxide (Milk Of Magnesia Liq) 30 ml Q12H PRN PO Mild constipation ; Start 06/26/17 at 13:45 Sennosides (Senokot) 17.2 mg Q12H PRN PO Moderate constipation; Start 06/26/17 at 13:45 Bisacodyl (Dulcolax Supp) 10 mg DAILY PRN RECTAL SEVERE CONSITIPATION; Start 06/26/17 at 13:45 Lactulose (Lactulose Liq) 30 ml DAILY PRN PO SEVERE CONSITIPATION; Start at 13:45 Iohexol (Omnipaque 350 Inj) 85 ml STK-MED ONCE IVCONTRAST Last administered on 06/26/17 14:20; Start 06/26/17 at 14:20; Stop 06/26/17 at 14:21; Status DC Vancomycin HCl 1750 mg/Sodium Chloride 517.5 ml @ 250 mls/hr Q12H IV Last administered on 06/27/17 03:01; Start 06/27/17 at 03:00; Stop 06/27/17 at 09 :54; Status DC Miscellaneous Information SPECIFIC LAB TO BE QUIQUE... ONCE ONCE .XX ; Start 07/04 at 14:45; Stop 06/28/17 at 14:45; Status DC Lorazepam (Ativan) 2 mg ONCE ONCE PO Last administered on 06/26/17 16:48; Start 06/26/17 at 16:00; Stop 06/26/17 at 16:02; Status DC Flumazenil (Romazicon Inj) 0.2 mg Q1M PRN IV PUSH SEE LABEL COMMENTS; Start at 16:00; Stop 06/28/17 at 09:34; Status DC Lorazepam (Ativan) 1 mg Q4H PRN PO CIWA 8 - 10; Start 06/26/17 at 16:00; Stop 06/28/17 at 09:34; Status DC Lorazepam (Ativan Inj) 1 mg Q4H PRN IV PUSH CIWA 8 - 10; Start 06/26/17 at 16: 00; Stop 06/28/17 at 09:34; Status DC Lorazepam (Ativan) 2 mg Q2H PRN PO CIWA 11-14; Start 06/26/17 at 16:00; Stop 06/28/17 at 09:34; Status DC Lorazepam (Ativan Inj) 2 mg Q2H PRN IV PUSH CIWA 11-14; Start 06/26/17 at 16:00 ; Stop 06/28/17 at 09:34; Status DC Lorazepam (Ativan Inj) 2 mg Q1H PRN IV PUSH CIWA 15-20; Start 06/26/17 at 16:00 ; Stop 06/28/17 at 09:34; Status DC Lorazepam (Ativan Inj) 2 mg Q15M PRN IV PUSH CIWA > 20; Start 06/26/17 at 16:00 ; Stop 06/28/17 at 09:34; Status DC Diltiazem HCl (Cardizem Inj) 20 mg ONCE ONCE IV PUSH Last administered on 06/26 21:39; Start 06/26/17 at 17:30; Stop 06/26/17 at 17:42; Status DC Diltiazem HCl 125 mg/Sodium Chloride 125 ml @ 5 mls/hr TITRATE PRN IV Tachycardia Last administered on 06/27/17 04:09; Start 06/26/17 at 18:00; Stop 06/27/17 at 06:21; Status DC Diltiazem HCl (Cardizem Inj) 20 mg UNSCH X1 PRN IV PUSH SEE LABEL COMMENTS; Start 06/26/17 at 17:45; Stop 06/26/17 at 18:30; Status DC Clonidine (Catapres) 0.1 mg Q6H PRN PO SBP>160, DBP>90 Last administered on t 15:43; Start 06/27/17 at 01:30 Famotidine (Pepcid) 20 mg ONCE ONCE PO Last administered on 06/27/17 01:38; Start 06/27/17 at 01:30; Stop 06/27/17 at 01:31; Status DC Insulin Detemir (Levemir Inj) 5 units DAILY SQ Last administered on 06/30/17 08:06; Start 06/27/17 at 09:00 Vancomycin HCl 1500 mg/Sodium Chloride 515 ml @ 250 mls/hr Q8H IV Last administered on 06/30/17 13:07; Start 06/27/17 at 13:00 Miscellaneous Information SPECIFIC LAB TO BE QUIQUE... ONCE ONCE .XX Last administered on 06/28/17 12:45; Start 06/28/17 at 12:45; Stop 06/28/17 at 12 :46; Status DC Piperacillin Sod/ Tazobactam Sod 50 ml @ 100 mls/hr Q6HR IV Last administered on 06/30/17 17:13; Start 06/27/17 at 12:00 Lisinopril (Prinivil) 10 mg DAILY PO Last administered on 06/28/17 09:22; Start 06/27/17 at 11:30; Stop 06/28/17 at 09:34; Status DC Famotidine (Pepcid) 20 mg HS PO Last administered on 06/29/17 20:38; Start 06/27/17 at 21:00 Calcium Carbonate (Tums Chew) 1,000 mg TID PRN CHEW DYSPEPSIA Last administered on 06/30/17 08:12; Start 06/27/17 at 17:00 Lisinopril (Prinivil) 10 mg BID PO Last administered on 06/30/17 08:05; Start 06/28/17 at 21:00; Stop 06/30/17 at 17:27; Status DC Gadodiamide (Omniscan Pf Inj) 20 ml STK-MED ONCE IV PUSH Last administered on 06/28/17 13:56; Start 06/28/17 at 13:56; Stop 06/28/17 at 13:57; Status DC Potassium Chloride (KCl) 40 meq ONCE ONCE PO Last administered on 06/29/17 09:16; Start 06/29/17 at 10:00; Stop 06/29/17 at 10:01; Status DC Metoprolol Tartrate (Lopressor) 25 mg Q12HR PO Last administered on 06/30/17 08:05; Start 06/29/17 at 11:30; Stop 06/30/17 at 17:27; Status DC Lactobacillus Acidophilus (Lactinex) 1 tab Q12HR PO Last administered on 08:12; Start 06/30/17 at 09:00 Lisinopril (Prinivil) 20 mg BID PO ; Start 06/30/17 at 21:00; Status UNV Metoprolol Tartrate (Lopressor) 50 mg Q12HR PO ; Start 06/30/17 at 21:00; Status UNV Alprazolam (Xanax) 0.25 mg Q6H PRN PO ANXIETY; Start 06/30/17 at 17:30; Status UNV Other Results Laboratory Tests Test 06/29/17 06:31 White Blood Count 8.3 TH/MM3 Red Blood Count 4.17 MIL/MM3 Hemoglobin 12.0 GM/DL Hematocrit 34.4 % Mean Corpuscular Volume 82.5 FL Mean Corpuscular Hemoglobin 28.9 PG Mean Corpuscular Hemoglobin Concent 35.0 % Red Cell Distribution Width 12.3 % Platelet Count 233 TH/MM3 Mean Platelet Volume 8.7 FL Neutrophils (%) (Auto) 66.3 % Lymphocytes (%) (Auto) 20.2 % Monocytes (%) (Auto) 9.7 % Eosinophils (%) (Auto) 3.3 % Basophils (%) (Auto) 0.5 % Neutrophils # (Auto) 5.5 TH/MM3 Lymphocytes # (Auto) 1.7 TH/MM3 Monocytes # (Auto) 0.8 TH/MM3 Eosinophils # (Auto) 0.3 TH/MM3 Basophils # (Auto) 0.0 TH/MM3 CBC Comment DIFF FINAL Differential Comment Laboratory Tests Test 06/29/17 06:31 06/30/17 09:40 Blood Urea Nitrogen 4 MG/DL 6 MG/DL Creatinine 0.46 MG/DL 0.94 MG/DL Random Glucose 140 MG/DL 163 MG/DL Calcium Level 8.2 MG/DL 8.5 MG/DL Magnesium Level 1.9 MG/DL 2.0 MG/DL Sodium Level 137 MEQ/L 138 MEQ/L Potassium Level 3.3 MEQ/L 3.4 MEQ/L Chloride Level 103 MEQ/L 102 MEQ/L Carbon Dioxide Level 24.4 MEQ/L 25.0 MEQ/L Anion Gap 10 MEQ/L 11 MEQ/L Estimat Glomerular Filtration Rate 196 ML/MIN 86 ML/MIN Microbiology Date/Time Source Procedure Growth Status 06/27/17 23:55 Blood Peripheral Aerobic Blood Culture - Preliminary NO GROWTH IN 2 DAYS Resulted 06/27/17 23:55 Blood Peripheral Anaerobic Blood Culture - Preliminary NO GROWTH IN 2 DAYS Resulted Exam-Podiatry Constitutional General appearance: comfortable Nutritional status: normal Orientation: alert and oriented x3 Dermatological Exam Skin Temp - Right: Within Normal Limits Skin Texture - Right: Within Normal Limits Skin Elasticity - Right: Within Normal Limits Skin Tugor - Right: Within Normal Limits Hair Growth - Right: Within Normal Limits Pigmentation - Right: Within Normal Limits Skin Temp - Left: Hot Skin Texture - Left: Shiny Skin Elasticity - Left: Within Normal Limits Skin Tugor - Left: Within Normal Limits Hair Growth - Left: Absent Pigmentation - Left: Abnormal Present on left: Eczematous Skin Ulcers: Location/Measurements There is a hyperkeratotic tissue and underneath the left hallux IPJ. There is an ulceration in the center of this callus. Probably the source of his infection. Decreased erythema from my initial visit. Assessment & Plan Diagnosis: (1) Diabetes ICD Codes: E11.9 - Type 2 diabetes mellitus without complications Status: Acute (2) Cellulitis of foot ICD Codes: L03.119 - Cellulitis of unspecified part of limb; R65.20 - Severe sepsis without septic shock Status: Acute (3) Diabetic foot ulcer ICD Codes: E11.621 - Type 2 diabetes mellitus with foot ulcer; L97.509 - Non- pressure chronic ulcer of other part of unspecified foot with unspecified severity Status: Acute A/P PLAN: I will see the patient tomorrow and debride his hyperkeratotic tissue under the hallux to evaluate the ulceration. If there is concern for osteomyelitis a Ceretec labeled white blood cell scan would be a better choice. We'll follow the patient. Discussed with ROBINSON Craft Problem Qualifiers (1) Diabetes: (2) Diabetic foot ulcer: Qualified Codes: E11.621 - Type 2 diabetes mellitus with foot ulcer; L97.521 - Non-pressure chronic ulcer of other part of left foot limited to breakdown of skin Gerry,Ryan M. DPM Jun 30, 2017 17:37
[2017-06-30] MEDS: FAMOTIDINE 20 MG TAB PO SCH (21:18)
[2017-06-30] MEDS: ALPRAZolam 0.25 MG TAB PO PRN (23:55)
[2017-06-30] MEDS: SODIUM CHLORIDE 0.9% FLUSH 10 ML FLUSH IV FLUSH PRN (23:56)
[2017-07-01] VITALS: BP 146/70; PULSE 76; RESP 20; TEMP 97.2; O2SAT 99
[2017-07-01] MEDS: SODIUM CHLORIDE 0.9% FLUSH 10 ML FLUSH IV FLUSH PRN ×3 (04:37→18:01)
[2017-07-01] MEDS: VANCOMYCIN INJ 1,500 MG in SODIUM CHLORID 0.9% 500 ML INJ 500 ML IV SCH (04:37)
[2017-07-01] MEDS: PIPERACIL-TAZO 3.375 GM PREMIX 50 ML IV SCH ×4 (07:00→18:00)
[2017-07-01 08:00] VITALS: BP 178/101; PULSE 71; RESP 20; TEMP 97; O2SAT 96
[2017-07-01] MEDS: INSULIN ASPART SUPPLEMENTAL SCALE SQ SCH ×4 (08:00→21:22)
[2017-07-01] MEDS: SODIUM CHLORIDE 0.9% FLUSH 10 ML FLUSH IV FLUSH SCH ×2 (08:40→21:18)
[2017-07-01] MEDS: LACTOBACILLUS ACIDOPHILUS TAB PO SCH ×2 (08:41→21:18)
[2017-07-01] MEDS: LISINOPRIL 10 MG TAB PO SCH ×2 (08:41→21:19)
[2017-07-01] MEDS: METOPROLOL TARTRATE 25 MG TAB PO SCH ×2 (08:41→21:18)
[2017-07-01] MEDS: INSULIN DETEMIR 100 UNITS/ML VIAL SQ SCH (08:42)
[2017-07-01] MEDS ORDERED: POTASSIUM CHLORIDE 10 MEQ CONTROLLED RELEASE TAB PO ONE (10:00)
[2017-07-01 12:00] VITALS: BP 163/94; PULSE 71; RESP 18; TEMP 97.1; O2SAT 98
--- NOTE | 2017-07-01 14:50 | HHI.PR ---
Subjective Remarks Follow-up on new onset diabetes, diabetic toe infection, bacteremia. Patient seen and examined, lying in bed comfortably. Awaiting information security officer to perform I&D at bedside today. Denies any new acute complaints. Denies pain. Eating well. Ambulating well. Denies any chest pain, headache, shortness of breath, ab pain, n/v/d or dysuria. Afebrile. Objective Vitals Vital Signs Date Time Temp Pulse Resp B/P (MAP) Pulse Ox O2 Delivery O2 Flow Rate FiO2 07/01/17 12:00 97.1 71 18 163/94 (117) 98 07/01/17 08:00 97.0 71 20 178/101 (126) 96 07/01/17 00:00 97.2 76 20 146/70 (95) 99 06/30/17 20:00 98.9 79 20 171/94 (119) 97 06/30/17 17:10 84 180/86 (117) 06/30/17 16:00 97.2 85 16 173/81 (111) 98 I/O 06/30/17 06/30/17 06/30/17 07/01/17 07/01/17 07/01/17 07:00 15:00 23:00 07:00 15:00 23:00 Intake Total 1940 ml 1070 ml 576 ml 1571 ml 50 ml Output Total 300 ml Balance 1940 ml 1070 ml 576 ml 1271 ml 50 ml Intake Oral 240 ml 1020 ml 480 ml IV Total 1700 ml 50 ml 576 ml 1091 ml 50 ml Output Urine Total 300 ml # Voids 2 6 4 1 # Bowel Movements 5 1 1 Result Diagram: 06/29/17 0631 06/30/17 0940 Imaging Last Impressions Foot MRI 06/28/17 0000 Signed Impressions: Service Date/Time: Wednesday, June 28, 2017 13:10 - CONCLUSION: 1. There is heterogeneous enhancement and signal within the distal aspect of the first digit particularly along the lateral aspect. However, no fluid collection or abscess is appreciated. 2. There is a mild degree of abnormal signal and enhancement within the first digit proximal phalanx but it does not definitely meet imaging criteria to confidently diagnose osteomyelitis. Suggest followup MRI if symptoms persist. Enrique Lane MD Chest X-Ray 06/27/17 0000 Signed Impressions: Service Date/Time: Tuesday, June 27, 2017 06:12 - CONCLUSION: 1. No acute cardiopulmonary disease. Taras Su MD Lower Extremity CT 06/26/17 0000 Signed Impressions: Service Date/Time: June 13:58 - CONCLUSION: 1. Soft tissue swelling along the medial aspect of the forefoot with ulceration on the plantar surface of the great toe. 2. No evidence of destructive bone changes. 3. No evidence of soft tissue air to suggest necrotizing fasciitis. Alcides Burris MD Foot X-Ray 06/26/17 0000 Signed Impressions: Service Date/Time: June 12:28 - CONCLUSION: Soft tissue swelling of the first digit with possible wound on the plantar aspect. No acute osseous abnormality is identified. Enrique Lane MD Objective Remarks GENERAL: Well-developed, well-nourished, in no acute distress. alert and orientated SKIN: No rash. Right foot ulceration, dressing in place, c/d/i. DP pulse 2+. HEENT: Head is normocephalic without any lesions or masses noted. Facial features are symmetric. Eyes: Extraocular muscles are intact. Conjunctivae were clear. Dentition in poor repair NECK: Supple without any masses. Trachea midline no deviation. No JVD, no bruits are appreciated CARDIAC: Regular rhythm, regular rate. S1/S2 are heard. No murmurs gallops or rubs. LUNGS: Clear to auscultation bilaterally. No wheeze, rhonchi or rales. No use of accessory muscles on inspiration or expiration. ABDOMEN: Soft, nontender. Nondistended. Bowel sounds heard in all 4 quadrants. No organomegaly or masses. Negative rebound, negative guarding EXTREMITIES: No edema, pulses are equal bilaterally. No cyanosis or clubbing NEUROLOGY: Mood and affect appear appropriate. Cranial nerves II through XII grossly intact. Moving all extremities, speech is clear A/P Assessment and Plan Severe Sepsis, no longer with sepsis criteria Gram-positive bacteremia Patient presented with Leukocytosis 16.6, tachycardia 150. Lactate 2.2. Diabetic foot ulcer with cellulitis. Status post multiple IV fluid boluses. Continue Zosyn and Vanco. Wound culture with Pseudomonas sensitive to Zosyn 3/4 positive blood cultures 1 with staph coag negative, the other 2 with anaerobic gram-positive cocci Repeat blood cultures negative for 3 days Echocardiogram shows normal systolic function, no vegetation Infectious disease following, appreciate input. Diabetic ulcer of left foot with cellulitis Foot x-ray negative for air. CT exam which is negative for necrotizing fasciitis. Continue vancomycin and Zosyn. Podiatry following the patient, plan for bedside I&D today. Sedimentation rate 56 9 C-reactive protein 11 Sinus tachycardia, improved Sinus tachycardia on telemetry. Improving with treatment of sepsis, new-onset diabetes. Cardiology consulted who indicated sinus tachycardia secondary to infection. Electrocardiogram appeared to be atrial flutter on admission however cardiology indicated sinus tachycardia. New onset diabetes with presenting Hyperglycemia Glucose of 413 on admission. Status post IV insulin in the ER. Hemoglobin A1c 10.1 Levemir 5 mg daily Accu-Cheks with sliding scale insulin Diabetic diet Patient has undergone education by school of nursing director, dietitian Case management consulted for diabetic DME equipment Hypertension, new onset versus untreated Lisinopril 10 mg twice daily Lopressor 25 mg twice daily Continue monitor blood pressure and adjust medications accordingly History of alcoholism. Patient reports history of extremely heavy alcohol use having quit several months ago. Discontinued CIWA protocol was initiated, patient did not require any treatment. Tobacco abuse. Cessation counseling provided. DVT prophylaxis: SCDs. Genie Mars Jul 01, 2017 14:50
--- NOTE | 2017-07-01 14:58 | HHI.IDPN ---
Subjective Subjective Remarks 47/ M came in because of swelling and redness of his left big toe / foot. He is not really how it started but he has a ulcer on left big toe that is draining. He noticed worsening redness and swelling 3 days before admission. He was found to have a sugar >400 on admission. Patient says he is better today. No pain in foot. Low grade fever on admission. Notes reviewed Temps ok No sensation on his foot No appetite WBC down to normal Wound C/S PSAE and normal skin andreia 2 BC with anaerobic GPC, one with Coag Neg Staph MRI no obvious finding to suggest osteo, no abscess Antibiotics IV Vancomycin and Zosyn Lines Peripheral Past Medical History New onset Diabetes Allergies: Coded Allergies: cephalexin (Unverified Allergy, Unknown, 06/26/17) codeine (Unverified Allergy, Unknown, 06/26/17) Objective . Vital Signs Date Time Temp Pulse Resp B/P (MAP) Pulse Ox O2 Delivery O2 Flow Rate FiO2 07/01/17 12:00 97.1 71 18 163/94 (117) 98 07/01/17 08:00 97.0 71 20 178/101 (126) 96 07/01/17 00:00 97.2 76 20 146/70 (95) 99 06/30/17 20:00 98.9 79 20 171/94 (119) 97 06/30/17 17:10 84 180/86 (117) 06/30/17 16:00 97.2 85 16 173/81 (111) 98 07/01/17 07/01/17 07/02/17 15:00 23:00 07:00 Intake Total 50 ml Balance 50 ml IV Total 50 ml # Voids 1 # Bowel Movements 1 . Laboratory Tests Test 06/30/17 09:40 Blood Urea Nitrogen 6 MG/DL Creatinine 0.94 MG/DL Random Glucose 163 MG/DL Calcium Level 8.5 MG/DL Magnesium Level 2.0 MG/DL Sodium Level 138 MEQ/L Potassium Level 3.4 MEQ/L Chloride Level 102 MEQ/L Carbon Dioxide Level 25.0 MEQ/L Anion Gap 11 MEQ/L Estimat Glomerular Filtration Rate 86 ML/MIN Imaging Last Impressions Foot MRI 06/28/17 0000 Signed Impressions: Service Date/Time: Wednesday, June 28, 2017 13:10 - CONCLUSION: 1. There is heterogeneous enhancement and signal within the distal aspect of the first digit particularly along the lateral aspect. However, no fluid collection or abscess is appreciated. 2. There is a mild degree of abnormal signal and enhancement within the first digit proximal phalanx but it does not definitely meet imaging criteria to confidently diagnose osteomyelitis. Suggest followup MRI if symptoms persist. Enrique Lane MD Chest X-Ray 06/27/17 0000 Signed Impressions: Service Date/Time: Tuesday, June 27, 2017 06:12 - CONCLUSION: 1. No acute cardiopulmonary disease. Taras Su MD Lower Extremity CT 06/26/17 0000 Signed Impressions: Service Date/Time: , June 26, 2017 13:58 - CONCLUSION: 1. Soft tissue swelling along the medial aspect of the forefoot with ulceration on the plantar surface of the great toe. 2. No evidence of destructive bone changes. 3. No evidence of soft tissue air to suggest necrotizing fasciitis. Alcides Burris MD Foot X-Ray 06/26/17 0000 Signed Impressions: Service Date/Time: June 12:28 - CONCLUSION: Soft tissue swelling of the first digit with possible wound on the plantar aspect. No acute osseous abnormality is identified. Enrique Lane MD Physical Exam GENERAL:Awake and alert, NAD SKIN: No generalized rash, cool and dry HEAD: Atraumatic. Normocephalic. No temporal or scalp tenderness. EYES: Pupils equal round and reactive. Extraocular motions intact. No scleral icterus. No injection or drainage. ENT: Nose without bleeding, purulent drainage or septal hematoma. Moist mucosa, no oral lesions NECK: Supple, nontender, no meningeal signs. CARDIOVASCULAR: Regular rate and rhythm without murmurs, gallops, or rubs. RESPIRATORY: Clear to auscultation. Breath sounds equal bilaterally. No wheezes , rales, or rhonchi. GASTROINTESTINAL: Abdomen soft, non-tender, nondistended. No guarding. MUSCULOSKELETAL: Left foot cellulitis - with erythema on dorsum, looks better. Has ulcers on anterior big toe with some crusted blood and some necrotic tissue. There is also an ulcer in plantar aspect of same toe with surrounding dark color, no odor, no pain, but not much sensation. No lymphangitis. No calf tenderness NEUROLOGICAL: Non-focal PSYCH: Normal, calm and cooperative LINE: PIV no evidence of infection Assessment & Plan Remarks Sepsis due to R foot infection, improving - has (+) BC with anaerobic GPC, ?significance Cellulitis R foot, with ulcer in R big toe, improving R big toe ulcer, ?osteo, MRI no obvious source of osteo New onset DM Leukocytosis resolved PLAN Continue Zosyn Continue Vancomycin Follow BC results Spoke with micro - they will do ID of the (+) BC Monitor progress Podiatry planning on further debridement Will D/W them regarding course of Rx Explained plan to patient Perla Vogt MD Jul 01, 2017 14:58
[2017-07-01 16:00] VITALS: BP 183/94; PULSE 74; RESP 16; TEMP 97; O2SAT 99
--- NOTE | 2017-07-01 16:53 | PD.POD ---
Subjective Podiatric Problems 47-year-old newly diagnosed diabetic with an infection of the left hallux and dorsal distal foot. Culture and sensitivity grew out pseudomonas. MRI was negative for bone infection. Patient was seen by Dr. Vogt from infectious disease. Pain scale used: 0-10 numeric scale Pain score: 1 Remarks 47-year-old male presented with signs of sepsis to the hospital and was admitted. He has been seen by myself and infectious disease. Culture of the foot wound grew out pseudomonas. He has a callus under the left hallux which is the source of his infection. I will debride the area today. Past Med/Surg/Social History Past Medical History Endocrine: REPORTS HX OF: Diabetes mellitus (patient did not know that he was diabetic) Social History Smoking Status: Current Every Day Smoker Additional Information Additional history Patient smokes at least 1 pack of cigarettes per day Review of Systems Notes No changes in his 14 point review of systems exam since he was last seen Objective Vital Signs Vital Signs Date Time Temp Pulse Resp B/P (MAP) Pulse Ox O2 Delivery O2 Flow Rate FiO2 07/01/17 16:00 97.0 74 16 183/94 (123) 99 07/01/17 12:00 97.1 71 18 163/94 (117) 98 07/01/17 08:00 97.0 71 20 178/101 (126) 96 07/01/17 00:00 97.2 76 20 146/70 (95) 99 06/30/17 20:00 98.9 79 20 171/94 (119) 97 06/30/17 17:10 84 180/86 (117) Coded Allergies: cephalexin (Unverified Allergy, Unknown, 06/26/17) codeine (Unverified Allergy, Unknown, 06/26/17) Medications and IVs Current Medications Piperacillin Sod/ Tazobactam Sod 100 ml @ 200 mls/hr ONCE STAT IV Last administered on 06/26/17t 13:30; Start 06/26/17 at 12:08; Stop 06/26/17 at 12:37 ; Status DC Clindamycin Phosphate 900 mg/ Sodium Chloride 106 ml @ 200 mls/hr ONCE STAT IV ; Start 06/26/17 at 12:08; Stop 06/26/17 at 12:42; Status DC Vancomycin HCl 1250 mg/Sodium Chloride 512.5 ml @ 257.5 mls/ hr ONCE STAT IV Last administered on 06/26/17 14:44; Start 06/26/17 at 12:08; Stop 06/26/17 at 14:07; Status DC Sodium Chloride 1,000 ml @ 1,000 mls/hr Q1H ONCE IV Last administered on 12:44; Start 06/26/17 at 12:08; Stop 06/26/17 at 13:07; Status DC Sodium Chloride 1,000 ml @ 1,000 mls/hr Q1H ONCE IV Last administered on 13:28; Start 06/26/17 at 12:08; Stop 06/26/17 at 13:07; Status DC Sodium Chloride 1,000 ml @ 1,000 mls/hr Q1H ONCE IV Last administered on 14:43; Start 06/26/17 at 12:08; Stop 06/26/17 at 13:07; Status DC Clindamycin Phosphate/Dextrose 50 ml @ 100 mls/hr STAT ONCE IV Last administered on 06/26/17 13:05; Start 06/26/17 at 13:00; Stop 06/26/17 at 13:29 ; Status DC Insulin Human Regular (NovoLIN R INJ) 10 units ONCE ONCE IV PUSH Last administered on 06/26/17 13:28; Start 06/26/17 at 13:15; Stop 06/26/17 at 13:16 ; Status DC Piperacillin Sod/ Tazobactam Sod 50 ml @ 100 mls/hr Q6H IV Last administered on 06/27/17 09:16; Start 06/26/17 at 20:00; Stop 06/27/17 at 11:26; Status DC Pharmacy Profile Note 0 ml @ 0 mls/hr UNSCH OTHER ; Start 06/26/17 at 13:45 Clindamycin Phosphate/Dextrose 50 ml @ 100 mls/hr Q6HR IV ; Start 06/26/17 at 18:00; Stop 06/26/17 at 18:00; Status DC Insulin Aspart (NovoLOG SUPPLEMENTAL SCALE) 1 ACHS SLIDING SCALE SQ Last administered on 07/01/17 12:00; Start 06/26/17 at 17:00 Sodium Chloride 1,000 ml @ 100 mls/hr Q10H IV Last administered on 06/28/17 00:17; Start 06/26/17 at 13:38; Stop 06/28/17 at 07:29; Status DC Sodium Chloride (NS Flush) 2 ml UNSCH PRN IV FLUSH FLUSH AFTER USING IV ACCESS Last administered on 07/01/17 07:18; Start 06/26/17 at 13:45 Sodium Chloride (NS Flush) 2 ml BID IV FLUSH Last administered on 07/01/17 08 :40; Start 06/26/17 at 21:00 Ondansetron HCl (Zofran Inj) 4 mg Q6H PRN IVP NAUSEA OR VOMITING Last administered on 06/26/17 21:09; Start 06/26/17 at 13:45 Naloxone HCl (Narcan Inj) 0.4 mg UNSCH PRN IV PUSH SEE LABEL COMMENTS; Start 06/26/17 at 13:45 Magnesium Hydroxide (Milk Of Magnesia Liq) 30 ml Q12H PRN PO Mild constipation ; Start 06/26/17 at 13:45 Sennosides (Senokot) 17.2 mg Q12H PRN PO Moderate constipation; Start 06/26/17 at 13:45 Bisacodyl (Dulcolax Supp) 10 mg DAILY PRN RECTAL SEVERE CONSITIPATION; Start 06/26/17 at 13:45 Lactulose (Lactulose Liq) 30 ml DAILY PRN PO SEVERE CONSITIPATION; Start at 13:45 Iohexol (Omnipaque 350 Inj) 85 ml STK-MED ONCE IVCONTRAST Last administered on 06/26/17 14:20; Start 06/26/17 at 14:20; Stop 06/26/17 at 14:21; Status DC Vancomycin HCl 1750 mg/Sodium Chloride 517.5 ml @ 250 mls/hr Q12H IV Last administered on 06/27/17 03:01; Start 06/27/17 at 03:00; Stop 06/27/17 at 09 :54; Status DC Miscellaneous Information SPECIFIC LAB TO BE QUIQUE... ONCE ONCE .XX ; Start 07/04 at 14:45; Stop 06/28/17 at 14:45; Status DC Lorazepam (Ativan) 2 mg ONCE ONCE PO Last administered on 06/26/17 16:48; Start 06/26/17 at 16:00; Stop 06/26/17 at 16:02; Status DC Flumazenil (Romazicon Inj) 0.2 mg Q1M PRN IV PUSH SEE LABEL COMMENTS; Start at 16:00; Stop 06/28/17 at 09:34; Status DC Lorazepam (Ativan) 1 mg Q4H PRN PO CIWA 8 - 10; Start 06/26/17 at 16:00; Stop 06/28/17 at 09:34; Status DC Lorazepam (Ativan Inj) 1 mg Q4H PRN IV PUSH CIWA 8 - 10; Start 06/26/17 at 16: 00; Stop 06/28/17 at 09:34; Status DC Lorazepam (Ativan) 2 mg Q2H PRN PO CIWA 11-14; Start 06/26/17 at 16:00; Stop 06/28/17 at 09:34; Status DC Lorazepam (Ativan Inj) 2 mg Q2H PRN IV PUSH CIWA 11-14; Start 06/26/17 at 16:00 ; Stop 06/28/17 at 09:34; Status DC Lorazepam (Ativan Inj) 2 mg Q1H PRN IV PUSH CIWA 15-20; Start 06/26/17 at 16:00 ; Stop 06/28/17 at 09:34; Status DC Lorazepam (Ativan Inj) 2 mg Q15M PRN IV PUSH CIWA > 20; Start 06/26/17 at 16:00 ; Stop 06/28/17 at 09:34; Status DC Diltiazem HCl (Cardizem Inj) 20 mg ONCE ONCE IV PUSH Last administered on 06/26 21:39; Start 06/26/17 at 17:30; Stop 06/26/17 at 17:42; Status DC Diltiazem HCl 125 mg/Sodium Chloride 125 ml @ 5 mls/hr TITRATE PRN IV Tachycardia Last administered on 06/27/17 04:09; Start 06/26/17 at 18:00; Stop 06/27/17 at 06:21; Status DC Diltiazem HCl (Cardizem Inj) 20 mg UNSCH X1 PRN IV PUSH SEE LABEL COMMENTS; Start 06/26/17 at 17:45; Stop 06/26/17 at 18:30; Status DC Clonidine (Catapres) 0.1 mg Q6H PRN PO SBP>160, DBP>90 Last administered on 15:43; Start 06/27/17 at 01:30 Famotidine (Pepcid) 20 mg ONCE ONCE PO Last administered on 06/27/17 01:38; Start 06/27/17 at 01:30; Stop 06/27/17 at 01:31; Status DC Insulin Detemir (Levemir Inj) 5 units DAILY SQ Last administered on 07/01/17 08:42; Start 06/27/17 at 09:00 Vancomycin HCl 1500 mg/Sodium Chloride 515 ml @ 250 mls/hr Q8H IV Last administered on 07/01/17 04:37; Start 06/27/17 at 13:00; Status Future Hold Miscellaneous Information SPECIFIC LAB TO BE QUIQUE... ONCE ONCE .XX Last administered on 06/28/17 12:45; Start 06/28/17 at 12:45; Stop 06/28/17 at 12 :46; Status DC Piperacillin Sod/ Tazobactam Sod 50 ml @ 100 mls/hr Q6HR IV Last administered on 07/01/17 07:18; Start 06/27/17 at 12:00; Stop 07/01/17 at 04:15; Status DC Lisinopril (Prinivil) 10 mg DAILY PO Last administered on 06/28/17 09:22; Start 06/27/17 at 11:30; Stop 06/28/17 at 09:34; Status DC Famotidine (Pepcid) 20 mg HS PO Last administered on 06/30/17 21:18; Start 06/27/17 at 21:00 Calcium Carbonate (Tums Chew) 1,000 mg TID PRN CHEW DYSPEPSIA Last administered on 06/30/17 08:12; Start 06/27/17 at 17:00 Lisinopril (Prinivil) 10 mg BID PO Last administered on 06/30/17 08:05; Start 06/28/17 at 21:00; Stop 06/30/17 at 17:27; Status DC Gadodiamide (Omniscan Pf Inj) 20 ml STK-MED ONCE IV PUSH Last administered on 06/28/17 13:56; Start 06/28/17 at 13:56; Stop 06/28/17 at 13:57; Status DC Potassium Chloride (KCl) 40 meq ONCE ONCE PO Last administered on 06/29/17 09:16; Start 06/29/17 at 10:00; Stop 06/29/17 at 10:01; Status DC Metoprolol Tartrate (Lopressor) 25 mg Q12HR PO Last administered on 06/30/17 08:05; Start 06/29/17 at 11:30; Stop 06/30/17 at 17:27; Status DC Lactobacillus Acidophilus (Lactinex) 1 tab Q12HR PO Last administered on 08:41; Start 06/30/17 at 09:00 Lisinopril (Prinivil) 20 mg BID PO Last administered on 07/01/17 08:41; Start 06/30/17 at 21:00 Metoprolol Tartrate (Lopressor) 50 mg Q12HR PO Last administered on 07/01/17 08:41; Start 06/30/17 at 21:00 Alprazolam (Xanax) 0.25 mg Q6H PRN PO ANXIETY Last administered on 06/30/17 23:55; Start 06/30/17 at 17:30 Piperacillin Sod/ Tazobactam Sod 50 ml @ 100 mls/hr Q6H IV Last administered on 07/01/17 12:16; Start 07/01/17 at 07:00 Potassium Chloride (KCl) 30 meq ONCE ONCE PO Last administered on 07/01/17 11:49; Start 07/01/17 at 10:00; Stop 07/01/17 at 10:09; Status DC Other Results Laboratory Tests Test 06/30/17 09:40 Blood Urea Nitrogen 6 MG/DL Creatinine 0.94 MG/DL Random Glucose 163 MG/DL Calcium Level 8.5 MG/DL Magnesium Level 2.0 MG/DL Sodium Level 138 MEQ/L Potassium Level 3.4 MEQ/L Chloride Level 102 MEQ/L Carbon Dioxide Level 25.0 MEQ/L Anion Gap 11 MEQ/L Estimat Glomerular Filtration Rate 86 ML/MIN Exam-Podiatry Constitutional General appearance: comfortable Nutritional status: normal Orientation: alert and oriented x3 Dermatological Exam Skin Temp - Right: Within Normal Limits Skin Texture - Right: Within Normal Limits Skin Elasticity - Right: Within Normal Limits Skin Tugor - Right: Within Normal Limits Hair Growth - Right: Within Normal Limits Pigmentation - Right: Within Normal Limits Skin Temp - Left: Within Normal Limits Skin Texture - Left: Within Normal Limits Skin Elasticity - Left: Within Normal Limits Skin Tugor - Left: Within Normal Limits Hair Growth - Left: Within Normal Limits Pigmentation - Left: Within Normal Limits Ulcers: Location/Measurements Patient has a hyperkeratotic lesion under the left hallux in the area of the interphalangeal joint. There is an underlying ulceration. The area was debrided today with a tissue nipper. The wound itself measures approximately 8.8 cm x 0.5 cm x 0.2 cm deep. There is no purulence. Radiographs show an interphalangeal joint assessory sesamoid bone. There is decreased cellulitis to the foot. Vascular/Lymphatic Exam R Dorsails Pedis: Palpable L Dorsails Pedis: Palpable R Posterior Tibial: Palpable L Posterior Tibial: Palpable Neurologic Exam Present on right: Tingling Present on left: Tingling Assessment & Plan Diagnosis: (1) Diabetes ICD Codes: E11.9 - Type 2 diabetes mellitus without complications Status: Acute (2) Cellulitis of foot ICD Codes: L03.119 - Cellulitis of unspecified part of limb; R65.20 - Severe sepsis without septic shock Status: Acute (3) Diabetic foot ulcer ICD Codes: E11.621 - Type 2 diabetes mellitus with foot ulcer; L97.509 - Non- pressure chronic ulcer of other part of unspecified foot with unspecified severity Status: Acute A/P PLAN: I debrided the ulceration under the left hallux.. I ordered a postop shoe to offload the area. When patient is cleared by medicine and ID he can be discharged. I will follow him in the wound center. During the remaining course of this admission I will follow as needed. Continue Maxorb extra AG dressings. Problem Qualifiers (1) Diabetes: (2) Diabetic foot ulcer: Qualified Codes: E11.621 - Type 2 diabetes mellitus with foot ulcer; L97.521 - Non-pressure chronic ulcer of other part of left foot limited to breakdown of skin Ryan Garrett DPM Jul 01, 2017 16:53
[2017-07-01] MEDS: cloNIDine HCL 0.1 MG TAB PO PRN (17:39)
[2017-07-01 20:00] VITALS: BP 138/86; PULSE 75; RESP 20; TEMP 98.8; O2SAT 100
[2017-07-01] MEDS: FAMOTIDINE 20 MG TAB PO SCH (21:18)
[2017-07-02] VITALS: BP 153/93; PULSE 72; RESP 20; TEMP 97; O2SAT 100
[2017-07-02] MEDS: PIPERACIL-TAZO 3.375 GM PREMIX 50 ML IV SCH ×4 (00:43→18:00)
[2017-07-02] MEDS: SODIUM CHLORIDE 0.9% FLUSH 10 ML FLUSH IV FLUSH PRN ×2 (01:29→06:35)
[2017-07-02 08:00] VITALS: BP 182/100; PULSE 82; RESP 16; TEMP 97.3; O2SAT 99
[2017-07-02] MEDS: INSULIN ASPART SUPPLEMENTAL SCALE SQ SCH ×4 (08:00→21:00)
[2017-07-02] MEDS: METOPROLOL TARTRATE 25 MG TAB PO SCH ×2 (08:25→20:13)
[2017-07-02] MEDS: SODIUM CHLORIDE 0.9% FLUSH 10 ML FLUSH IV FLUSH SCH ×2 (08:25→20:13)
[2017-07-02] MEDS: LACTOBACILLUS ACIDOPHILUS TAB PO SCH ×2 (08:25→20:13)
[2017-07-02] MEDS: cloNIDine HCL 0.1 MG TAB PO PRN ×2 (08:25→17:52)
[2017-07-02] MEDS: LISINOPRIL 10 MG TAB PO SCH ×2 (08:26→20:13)
[2017-07-02] MEDS: INSULIN DETEMIR 100 UNITS/ML VIAL SQ SCH (08:26)
[2017-07-02] MEDS ORDERED: GETGO ROLLING W1 MI1 (10:31)
[2017-07-02] MEDS ORDERED: WHEE1EAC ×2 (10:31→13:46)
[2017-07-02 12:00] VITALS: BP 160/88; PULSE 62; RESP 16; TEMP 97.8; O2SAT 99
--- NOTE | 2017-07-02 12:54 | HHI.PR ---
Subjective Remarks Patient denies pain. Blood pressure has been running high today. Patient is wondering when he might be able to go home. Objective Vitals Vital Signs Date Time Temp Pulse Resp B/P (MAP) Pulse Ox O2 Delivery O2 Flow Rate FiO2 07/02/17 08:00 97.3 82 16 99 182/100 (127) 07/02/17 00:00 97.0 72 20 153/93 (113) 100 07/01/17 20:00 98.8 75 20 138/86 (103) 100 07/01/17 16:00 97.0 74 16 183/94 (123) 99 I/O 07/01/17 07/01/17 07/01/17 07/02/17 07/02/17 07/02/17 07:00 15:00 23:00 07:00 15:00 23:00 Intake Total 1571 ml 100 ml 1730 ml 630 ml 50 ml Output Total 300 ml Balance 1271 ml 100 ml 1730 ml 630 ml 50 ml Intake Oral 480 ml 1680 ml 580 ml IV Total 1091 ml 100 ml 50 ml 50 ml 50 ml Output Urine Total 300 ml # Voids 4 1 7 3 # Bowel Movements 1 1 0 0 Result Diagram: 06/29/17 0631 06/30/17 0940 Objective Remarks GENERAL: Well-nourished, well-developed obese male patient. SKIN: Warm and dry. HEAD: Normocephalic. EYES: No scleral icterus. No injection or drainage. NECK: Supple, trachea midline. No JVD or lymphadenopathy. CARDIOVASCULAR: Regular rate and rhythm without murmurs, gallops, or rubs. RESPIRATORY: Breath sounds equal bilaterally. No accessory muscle use. GASTROINTESTINAL: Abdomen soft, non-tender, nondistended. EXTREMITIES: No cyanosis, or edema. Right foot in bandage, bandage not removed. NEUROLOGICAL: Awake, alert, and oriented x 3. Non-focal. A/P Assessment and Plan Severe Sepsis, no longer with sepsis criteria Gram-positive bacteremia Patient presented with Leukocytosis 16.6, tachycardia 150. Lactate 2.2. Diabetic foot ulcer with cellulitis. Continue Zosyn and Vanco. Wound culture with Pseudomonas sensitive to Zosyn 3/4 positive blood cultures 1 with staph coag negative, the other 2 with anaerobic gram-positive cocci Repeat blood cultures negative for 3 days Echocardiogram shows normal systolic function, no vegetation Infectious disease following, appreciate input - discussed with infectious disease/ Dr. Vogt - waiting on identification of the organism prior to determining antibiotic. Diabetic ulcer of left foot with cellulitis Foot x-ray negative for air. CT exam which is negative for necrotizing fasciitis. Continue vancomycin and Zosyn. Podiatry following the patient, status post bedside I&D 07/01, cleared for discharge per podiatry, no concerns of osteomyelitis Sedimentation rate 56 9 C-reactive protein 11 Sinus tachycardia, improved Sinus tachycardia on telemetry. Improving with treatment of sepsis, new-onset diabetes. Cardiology consulted who indicated sinus tachycardia secondary to infection. Electrocardiogram appeared to be atrial flutter on admission however cardiology indicated sinus tachycardia. New onset diabetes with presenting Hyperglycemia Glucose of 413 on admission. Status post IV insulin in the ER. Hemoglobin A1c 10.1 Levemir 5 mg daily Accu-Cheks with sliding scale insulin Diabetic diet Patient has undergone education by cyber defense analyst, dietitian Case management consulted for diabetic DME equipment Hypertension, uncontrolled Start HCTZ Lisinopril 10 mg twice daily Lopressor 25 mg twice daily Continue monitor blood pressure and adjust medications accordingly History of alcoholism. Patient reports history of extremely heavy alcohol use having quit several months ago. Discontinued CIWA protocol was initiated, patient did not require any treatment. Tobacco abuse. Cessation counseling provided. DVT prophylaxis: SCDs. Corrine Baldwin MD Jul 02, 2017 12:54
[2017-07-02] MEDS: HYDROCHLOROTHIAZIDE 25 MG TAB PO SCH (13:39)
[2017-07-02 16:00] VITALS: BP 168/100; PULSE 66; RESP 16; TEMP 98.5; O2SAT 97
[2017-07-02 16:58] LABS: BICARBONATE 20.4 MEQ/L (21.0-32.0); POTASSIUM 3.6 MEQ/L (3.5-5.1)
[2017-07-02] MEDS: SODIUM CHLOR 0.9% 1000 ML INJ 1,000 ML IV SCH (18:01)
[2017-07-02 20:00] VITALS: BP 175/94; PULSE 71; RESP 17; TEMP 97.5; O2SAT 100
[2017-07-02] MEDS: FAMOTIDINE 20 MG TAB PO SCH (20:13)
[2017-07-02 20:29] LABS: GLUCOSE,URINE 100 mg/dL (NEG); KETONE, URINE NEG (NEG); NITRITE,URINE NEG (NEG); PH, URINE 5.5 (5.0-8.5)
[2017-07-02 20:33] LABS: BLOOD, URINE TRACE (NEG); URINE COLOR YELLOW (YELLW/STRAW)
[2017-07-02 20:34] LABS: RBC, URINE 0-3 /hpf (0-3); SQUAMOUS EPITHELIAL CELL URINE 0-5 /hpf (0-5); WBC, URINE 0-2 /hpf (0-5)
[2017-07-03] VITALS (10 sets, daily range): BP systolic 99–192; BP diastolic 54–118; PULSE 67–83; RESP 16–20; TEMP 96.4–97.7; O2SAT 97–100
[2017-07-03] MEDS: PIPERACIL-TAZO 3.375 GM PREMIX 50 ML IV SCH ×4 (00:38→21:11)
[2017-07-03] MEDS: SODIUM CHLOR 0.9% 1000 ML INJ 1,000 ML IV SCH ×2 (05:39→17:14)
[2017-07-03 06:58] LABS: POTASSIUM 3.4 MEQ/L (3.5-5.1)
[2017-07-03 07:02] LABS: BICARBONATE 23.7 MEQ/L (21.0-32.0)
[2017-07-03] MEDS: METOPROLOL TARTRATE 25 MG TAB PO SCH ×2 (08:00→21:13)
[2017-07-03] MEDS: LISINOPRIL 10 MG TAB PO SCH (08:00)
[2017-07-03] MEDS: HYDROCHLOROTHIAZIDE 25 MG TAB PO SCH (08:00)
[2017-07-03] MEDS: LACTOBACILLUS ACIDOPHILUS TAB PO SCH ×2 (08:00→21:13)
[2017-07-03] MEDS: INSULIN DETEMIR 100 UNITS/ML VIAL SQ SCH (08:01)
[2017-07-03] MEDS: SODIUM CHLORIDE 0.9% FLUSH 10 ML FLUSH IV FLUSH SCH ×2 (08:03→21:14)
[2017-07-03] MEDS: INSULIN ASPART SUPPLEMENTAL SCALE SQ SCH ×4 (08:03→21:00)
[2017-07-03] MEDS: hydrALAZINE HCL 50 MG TAB PO SCH ×3 (09:11→21:13)
--- NOTE | 2017-07-03 10:26 | RADRPT ---
EXAM DATE/TIME: 07/03/2017 09:46 [facility] COMPARISON: No previous studies available for comparison. INDICATIONS : Increased BUN/creatinine. MEDICAL HISTORY : Hypercholesterolemia. Hypertension. Polyuria. Diabetes. SURGICAL HISTORY : Tonsillectomy. Hernia repair. ENCOUNTER: Initial ACUITY: 1 day PAIN SCORE: 0/10 LOCATION: Bilateral flank MEASUREMENTS: RIGHT KIDNEY: 15.4 x 7.0 x 6.8 cm LEFT KIDNEY: 12.9 x 7.1 x 7.1 cm FINDINGS: RIGHT KIDNEY: Renal cortex is normal in thickness and echotexture. No hydronephrosis, stone, or mass. LEFT KIDNEY: Renal cortex is normal in thickness and echotexture. No hydronephrosis, stone, or mass. BLADDER: Bladder is almost completely decompressed. CONCLUSION: 1. Mild size discrepancy between kidneys with the right slightly larger than the left. 2. Otherwise negative. Urinary bladder is decompressed. Aristeo Hayden MD on July 03, 2017 at 10:23 Board Certified Radiologist. This report was verified electronically.
[2017-07-03] MEDS: cloNIDine HCL 0.1 MG TAB PO PRN (10:52)
--- NOTE | 2017-07-03 13:17 | HHI.PR ---
Subjective Remarks Late entry patient seen at 9:30 AM. Patient denies pain or dyspnea. Patient states he is voiding well and in fact is voiding more frequently than usual. Denies dysuria. Objective Vitals Vital Signs Date Time Temp Pulse Resp B/P (MAP) Pulse Ox O2 Delivery O2 Flow Rate FiO2 07/03/17 10:47 70 177/101 (126) 07/03/17 09:08 183/99 (127) 07/03/17 08:00 97.5 74 18 188/118 (141) 100 07/03/17 00:00 97.7 69 19 169/96 (120) 99 07/02/17 20:00 97.5 71 17 175/94 (121) 100 07/02/17 16:00 98.5 66 16 168/100 (122) 97 I/O 07/02/17 07/02/17 07/02/17 07/03/17 07/03/17 07/03/17 07:00 15:00 23:00 07:00 15:00 23:00 Intake Total 630 ml 50 ml 1750 ml 1100 ml Balance 630 ml 50 ml 1750 ml 1100 ml Intake Oral 580 ml 1700 ml IV Total 50 ml 50 ml 50 ml 1100 ml # Voids 3 7 # Bowel Movements 0 2 Result Diagram: 06/29/17 0631 07/03/17 0545 Objective Remarks GENERAL: Well-nourished, well-developed obese male patient. SKIN: Warm and dry. HEAD: Normocephalic. EYES: No scleral icterus. No injection or drainage. NECK: Supple, trachea midline. No JVD or lymphadenopathy. CARDIOVASCULAR: Regular rate and rhythm without murmurs, gallops, or rubs. RESPIRATORY: Breath sounds equal bilaterally. No accessory muscle use. GASTROINTESTINAL: Abdomen soft, non-tender, nondistended. EXTREMITIES: No cyanosis, or edema. Right foot in bandage, bandage not removed. NEUROLOGICAL: Awake, alert, and oriented x 3. Non-focal. A/P Assessment and Plan Severe Sepsis, no longer with sepsis criteria Gram-positive bacteremia Patient presented with Leukocytosis 16.6, tachycardia 150. Lactate 2.2. Diabetic foot ulcer with cellulitis. Continue Zosyn and Vanco. Wound culture with Pseudomonas sensitive to Zosyn 3/4 positive blood cultures 1 with staph coag negative, the other 2 with anaerobic gram-positive cocci Repeat blood cultures negative for 3 days Echocardiogram shows normal systolic function, no vegetation Infectious disease following, appreciate input - discussed with infectious disease/ Dr. Vogt - waiting on identification of the organism prior to determining antibiotic. Diabetic ulcer of left foot with cellulitis Foot x-ray negative for air. CT exam which is negative for necrotizing fasciitis. Continue vancomycin and Zosyn. Podiatry following the patient, status post bedside I&D 07/01, cleared for discharge per podiatry, no concerns of osteomyelitis Sedimentation rate 56 9 C-reactive protein 11 Acute kidney injury suspect due to vancomycin Continue IV fluids Urinalysis without eosinophils We will check kidney ultrasound Consult nephrology Vancomycin DC'd Sinus tachycardia, improved Sinus tachycardia on telemetry. Improving with treatment of sepsis, new-onset diabetes. Cardiology consulted who indicated sinus tachycardia secondary to infection. Electrocardiogram appeared to be atrial flutter on admission however cardiology indicated sinus tachycardia. New onset diabetes with presenting Hyperglycemia Glucose of 413 on admission. Status post IV insulin in the ER. Hemoglobin A1c 10.1 Levemir 5 mg daily Accu-Cheks with sliding scale insulin Diabetic diet Patient has undergone education by perioperative educator, dietitian Case management consulted for diabetic DME equipment Hypertension, uncontrolled Discontinue HCTZ and lisinopril due to the acute kidney injury Start Hydralazine 50 mg 3 times a day and Norvasc 10 mg daily Continue Lopressor 25 mg twice daily and Clonidine as needed Continue monitor blood pressure and adjust medications accordingly History of alcoholism. Patient reports history of extremely heavy alcohol use having quit several months ago. Discontinued CIWA protocol was initiated, patient did not require any treatment. Tobacco abuse. Cessation counseling provided. DVT prophylaxis: SCDs. Corrine Baldwin MD Jul 03, 2017 13:17
--- NOTE | 2017-07-03 14:09 | MB ---
cc: JOHANNA BECERRIL MD DATE OF CONSULTATION: 07/03/2017 REASON FOR CONSULTATION Elevated BUN and creatinine with acute kidney injury, for evaluation. HISTORY OF PRESENT ILLNESS This is a very pleasant 47-year-old male with past medical history of hypertension, history of chronic toe infection, diabetes mellitus new onset, came to the hospital because of swelling and redness of left big toe. I was called to see the patient because of elevated BUN and creatinine. The patient has normal creatinine on admission of 0.4-0.5, although it was 1.1 on admission but it remains in the range of 0.4 to 0.5 until four days ago when it is started going up to 0.9 and yesterday was 2.4 and now is 2.7. The patient was seen by infectious disease. He was getting vancomycin, he was seen by podiatry and the patient has been responding to the antibiotic with some improvement in the ulcer on the left foot with cellulitis. He had I&D done for that and the culture grows Pseudomonas in the wound and the blood culture grew staph coagulase negative. The patient denies any nausea or vomiting. He has loose bowel motion about two per day and appetite is normal, does not have any dysuria, hematuria, did not notice any decrease in the urine output. PAST MEDICAL HISTORY 1. Hypertension. 2. New-onset diabetes mellitus. PAST SURGICAL HISTORY 1. History of tonsillectomy. 2. Inguinal hernia repair. REVIEW OF SYSTEMS Denies any history of fever. No headache, dizziness or blurring of vision. No shortness of breath or chest pain. No palpitation. No nausea, vomiting. No abdominal pain. Has loose bowel motion about two per day. No history of dysuria, hematuria, did not notice any decrease in the urine output. The pain in the foot is improving. SOCIAL HISTORY Chronic smoker, smoked one pack per day. Occasionally drinks beer. He has past history of heavy alcoholism, stopped three months ago. FAMILY HISTORY Positive for diabetes and hypertension from the mother's side. Father has chronic leukocytic leukemia. ALLERGIES Allergic to CEPHALEXIN AND CODEINE. MEDICATIONS Currently he is on following medications: 1. Normal saline at 84 an hour, started today in the morning. 2. Levemir 5 units subcu daily. 3. Famotidine 20 mg once a day. 4. Lactinex one tablet q.12 hour. 5. Zosyn 3.375 grams IV q. 6-hour. 6. Hydralazine 50 mg q. 8-hour. 7. Insulin Aspart sliding scale. 8. Zofran as needed. 9. Last dose of vancomycin was given on 07/01. PHYSICAL EXAMINATION GENERAL: On examination the patient is awake, alert. He is not in acute distress. VITAL SIGNS: His last blood pressure is 177/101, temperature 97.5, oxygen saturation on room air is 99-100%. HEENT: Pupils are equal, nonicteric sclerae, conjunctivae normal. NECK: Supple. JVD not elevated. LUNGS: The patient has bilateral good air entry with occasional wheezing. HEART: S1, S2, regular rhythm. ABDOMEN: Distended, soft, lax. There is no tenderness. Bowel sounds positive. EXTREMITIES: There is no pedal edema. Left big toe is covered with dressing. INVESTIGATION WBC count is 8.3, hemoglobin 12.0, platelet count 233, neutrophils 66.3%, sodium 142, potassium 3.4, chloride 107, bicarb 23.7, BUN 10, creatinine 2.7, calcium 8.4. Urinalysis showing that there is no protein, glucose 100. Toxicology screen showing that the vancomycin level was 41.5 and 35.4. Wound culture growing Pseudomonas and blood culture growing staph coagulase negative. The repeat blood culture is negative. Ultrasound of the kidney was done which shows that both kidneys are normal in size with right one is slightly bigger 15.4 and the left one is 12.9 cm. There is no hydronephrosis, stone or mass. MRI of the foot was done which shows enhancement in the distal aspect of the first digit, mild degree of abnormal signal. Extremity arterial study was done with the Doppler and it shows normal TRINI on the left, slightly diminished TRINI on the right. The patient had CT scan of the lower extremities done which showed that he has soft tissue swelling, no evidence of destructive bone disease. This was done on June 26. ASSESSMENT/PLAN 1. Acute kidney injury. 2. Cellulitis of the toe. 3. Hypertension, uncontrolled. 4. Diabetes mellitus new-onset. 5. Mild anemia. The patient has acute kidney injury and has no proteinuria, most likely he has acute tubular damage because of vancomycin being very high level or possibility of ATN from the infection. Urine eosinophils were negative and he does not have eosinophilia in the blood also, unlikely to be interstitial nephritis. At present I agree with continuing IV fluid and avoid vancomycin or other nephrotoxins. I will also check the urine sodium and osmolality. Follow the urine output and the BMP. Thank you for the consultation and I will follow the patient while he is in the hospital. MD MEIR May/TLZita /1:20 PM /1:43 PM
[2017-07-03] MEDS ORDERED: WHEE1EAC ×2 (14:26→14:29)
[2017-07-03] MEDS: FAMOTIDINE 20 MG TAB PO SCH (21:13)
[2017-07-04] MEDS: PIPERACIL-TAZO 3.375 GM PREMIX 50 ML IV SCH (05:50)
[2017-07-04] MEDS: SODIUM CHLOR 0.9% 1000 ML INJ 1,000 ML IV SCH ×2 (05:50→14:44)
[2017-07-04] MEDS: hydrALAZINE HCL 50 MG TAB PO SCH ×3 (05:51→21:29)
[2017-07-04] MEDS: INSULIN ASPART SUPPLEMENTAL SCALE SQ SCH ×4 (07:40→21:00)
[2017-07-04 08:00] VITALS: BP 168/116; PULSE 100; RESP 14; TEMP 96.5; O2SAT 98
[2017-07-04] MEDS ORDERED: PILL SPLITTER OTHER PRN (08:30)
[2017-07-04] MEDS: SODIUM CHLORIDE 0.9% FLUSH 10 ML FLUSH IV FLUSH SCH ×2 (09:00→20:24)
[2017-07-04 09:05] LABS: POTASSIUM 3.5 MEQ/L (3.5-5.1)
[2017-07-04 09:10] LABS: BICARBONATE 21.8 MEQ/L (21.0-32.0)
[2017-07-04] MEDS: LACTOBACILLUS ACIDOPHILUS TAB PO SCH ×2 (09:17→20:26)
[2017-07-04] MEDS: INSULIN DETEMIR 100 UNITS/ML VIAL SQ SCH (09:18)
[2017-07-04] MEDS: METOPROLOL TARTRATE 25 MG TAB PO SCH ×2 (09:18→20:25)
[2017-07-04] MEDS: LEVOFLOXACIN 750 MG TAB PO SCH (09:20)
--- NOTE | 2017-07-04 11:32 | HHI.PR ---
Subjective Remarks Patient did have some diarrhea this morning. No abdominal pain or fever. Voiding well. Objective Vitals Vital Signs Date Time Temp Pulse Resp B/P (MAP) Pulse Ox O2 Delivery O2 Flow Rate FiO2 07/04/17 08:00 96.5 100 14 168/116 (133) 98 07/03/17 23:10 97.7 67 20 145/87 (106) 98 07/03/17 20:00 97.1 83 20 192/93 (126) 98 07/03/17 16:43 186/94 (124) 07/03/17 16:30 176/112 (133) 07/03/17 16:00 97.5 70 16 () 97 07/03/17 13:00 96.4 80 168/88 (114) 100 I/O 07/03/17 07/03/17 07/03/17 07/04/17 07/04/17 07/04/17 07:00 15:00 23:00 07:00 15:00 23:00 Intake Total 1100 ml 940 ml 1050 ml 281 ml Output Total 400 ml 500 ml Balance 1100 ml 540 ml 550 ml 281 ml Intake Oral 840 ml IV Total 1100 ml 100 ml 1050 ml 281 ml Output Urine Total 400 ml 500 ml # Voids 2 1 # Bowel Movements 3 1 Result Diagram: 07/04/17 08 Objective Remarks GENERAL: Well-nourished, well-developed obese male patient. SKIN: Warm and dry. HEAD: Normocephalic. EYES: No scleral icterus. No injection or drainage. NECK: Supple, trachea midline. No JVD or lymphadenopathy. CARDIOVASCULAR: Regular rate and rhythm without murmurs, gallops, or rubs. RESPIRATORY: Breath sounds equal bilaterally. No accessory muscle use. GASTROINTESTINAL: Abdomen soft, non-tender, nondistended. EXTREMITIES: No cyanosis, or edema. Right foot in bandage, bandage not removed. NEUROLOGICAL: Awake, alert, and oriented x 3. Non-focal. A/P Problem List: (1) ATN (acute tubular necrosis) ICD Code: N17.0 - Acute kidney failure with tubular necrosis (2) Severe sepsis ICD Code: A41.9 - Sepsis, unspecified organism; R65.20 - Severe sepsis without septic shock Status: Acute (3) Diabetes mellitus, new onset ICD Code: E11.9 - Type 2 diabetes mellitus without complications (4) Cellulitis of foot ICD Code: L03.119 - Cellulitis of unspecified part of limb; R65.20 - Severe sepsis without septic shock Status: Acute (5) Diabetic foot ulcer ICD Code: E11.621 - Type 2 diabetes mellitus with foot ulcer; L97.509 - Non- pressure chronic ulcer of other part of unspecified foot with unspecified severity Status: Acute (6) HTN (hypertension) ICD Code: I10 - Essential (primary) hypertension Assessment and Plan Severe Sepsis, no longer with sepsis criteria Gram-positive bacteremia Patient presented with Leukocytosis 16.6, tachycardia 150. Lactate 2.2. Diabetic foot ulcer with cellulitis. Wound culture with Pseudomonas sensitive to Zosyn 3/4 positive blood cultures 1 with staph coag negative, the other 2 with anaerobic gram-positive cocci Repeat blood cultures negative for 3 days Echocardiogram shows normal systolic function, no vegetation Infectious disease following, appreciate input - discussed with infectious disease/ Dr. Vogt -LIANNE Zosyn. Vancomycin DC'd yesterday. Started on Levaquin today. Diabetic ulcer of left foot with cellulitis Foot x-ray negative for air. CT exam which is negative for necrotizing fasciitis. Continue vancomycin and Zosyn. Podiatry following the patient, status post bedside I&D 07/01, cleared for discharge per podiatry, no concerns of osteomyelitis Sedimentation rate 56 9 C-reactive protein 11 Acute kidney injury suspect ATN due to vancomycin No improvement with IV fluids Urinalysis without eosinophils or proteinuria kidney ultrasound without hydronephrosis. Did show that the right kidney slightly larger than the left. Nephrology following. Repeat BMP in the morning. Vancomycin DC'd Sinus tachycardia, improved Sinus tachycardia on telemetry. Improving with treatment of sepsis, new-onset diabetes. Cardiology consulted who indicated sinus tachycardia secondary to infection. Electrocardiogram appeared to be atrial flutter on admission however cardiology indicated sinus tachycardia. New onset diabetes with presenting Hyperglycemia Glucose of 413 on admission. Status post IV insulin in the ER. Hemoglobin A1c 10.1 Levemir 5 mg daily Accu-Cheks with sliding scale insulin Diabetic diet Patient has undergone education by family educator, dietitian Case management consulted for diabetic DME equipment Hypertension, uncontrolled Discontinued HCTZ and lisinopril due to the acute kidney injury Increase Hydralazine 50 mg to 75 3 times a day and Norvasc 10 mg daily Continue Lopressor 25 mg twice daily and Clonidine as needed Continue monitor blood pressure and adjust medications accordingly History of alcoholism. Patient reports history of extremely heavy alcohol use having quit several months ago. Discontinued CIWA protocol was initiated, patient did not require any treatment. Tobacco abuse. Cessation counseling provided. DVT prophylaxis: SCDs. Problem Qualifiers (1) Diabetic foot ulcer: Qualified Codes: E11.621 - Type 2 diabetes mellitus with foot ulcer; L97.521 - Non-pressure chronic ulcer of other part of left foot limited to breakdown of skin Corrine Baldwin MD Jul 04, 2017 11:32
[2017-07-04 12:00] VITALS: BP 183/115; PULSE 74; RESP 14; TEMP 96.1; O2SAT 94
[2017-07-04] MEDS: cloNIDine HCL 0.1 MG TAB PO PRN (12:17)
--- NOTE | 2017-07-04 15:52 | HHI.NPPN ---
Subjective History of Present Illness 7-year-old male with past medical history of hypertension, history of chronic toe infection, diabetes mellitus new onset, came to the hospital because of swelling and redness of left big toe. I was called to see the patient because of elevated BUN and creatinine. The patient has normal creatinine of 1.1 on admission but it improve in the range of 0.4 to 0.5. Additional Remarks atient is alert, no SOB, eating better, not in distress. Review of Systems General Constitutional: Fatigue Cardiovascular Cardiac: OLVERA Objective Data Data 07/04/17 07/05/17 19:00 07:00 Intake Total 399 ml Balance 399 ml Intake Oral 118 ml IV Total 281 ml # Voids 4 # Bowel Movements 4 Vital Signs Date Time Temp Pulse Resp B/P (MAP) Pulse Ox O2 Delivery O2 Flow Rate FiO2 07/04/17 12:00 96.1 74 14 183/115 (137) 94 07/04/17 08:00 96.5 100 14 168/116 (133) 98 07/03/17 23:10 97.7 67 20 145/87 (106) 98 07/03/17 20:00 97.1 83 20 192/93 (126) 98 07/03/17 16:43 186/94 (124) 07/03/17 16:30 176/112 (133) 07/03/17 16:00 97.5 70 16 () 97 -: 07/04/17 0825 Physical Exam General Appearance: No Acute Distress, Comfortable Eyes Eye Exam: Pupils Equal Throat Throat Exam: Oral Mucosa [place] & Moist Neck Neck Exam: Neck Supple Pulmonary Resp Exam: Clear Bilaterally, Breath Sounds Equal, No Distress, Rhonchi, Decreased Bases Cardiology CV Exam: Regular, Normal Sinus Rhythm Gastrointestinal/Abdomen GI Exam: Soft, Non-Tender, Bowel Sounds Present Extremeties Extremities Exam: Trace Edema Neurologic Neuro Exam: Alert, Awake, Oriented Psychiatric Psych Exam: Appropriate Responses Assessment/Plan Assessment Summary: TROY/Acute Renal Failure, Hypertension, Diabetes Mellitus Problem List: (1) Diabetes mellitus, new onset ICD Codes: E11.9 - Type 2 diabetes mellitus without complications (2) Cellulitis of foot ICD Codes: L03.119 - Cellulitis of unspecified part of limb; R65.20 - Severe sepsis without septic shock Status: Acute (3) HTN (hypertension) ICD Codes: I10 - Essential (primary) hypertension (4) Diabetic foot ulcer ICD Codes: E11.621 - Type 2 diabetes mellitus with foot ulcer; L97.509 - Non- pressure chronic ulcer of other part of unspecified foot with unspecified severity Status: Acute (5) ATN (acute tubular necrosis) ICD Codes: N17.0 - Acute kidney failure with tubular necrosis Plan Patient has been non oliguric. Creatinine increase slightly. BP is stable. Urine Eosinophils negative and Na. is normal. Most likely has TROY either due to infection or Vancomycin toxicity. Has very high Vanco. level. Creatinine is now 2.9, Continue hydration. BP elevated, Hydralazine increased. Avoid Nephrotoxins. follow urine out put and BMP. Problem Qualifiers (1) Diabetic foot ulcer: Qualified Codes: E11.621 - Type 2 diabetes mellitus with foot ulcer; L97.521 - Non-pressure chronic ulcer of other part of left foot limited to breakdown of skin Camila Altman MD Jul 04, 2017 15:52
[2017-07-04 16:00] VITALS: BP 177/103; PULSE 80; RESP 14; TEMP 95.6; O2SAT 95
[2017-07-04 20:00] VITALS: BP 178/98; PULSE 83; RESP 18; TEMP 97.8; O2SAT 95
[2017-07-04] MEDS: FAMOTIDINE 20 MG TAB PO SCH (20:25)
[2017-07-04] MEDS: ALPRAZolam 0.25 MG TAB PO PRN (20:25)
[2017-07-05] VITALS: BP 140/78; PULSE 72; RESP 18; TEMP 97.7; O2SAT 97
[2017-07-05 04:00] VITALS: BP 157/79; PULSE 75; RESP 18; TEMP 98.3; O2SAT 98
[2017-07-05] MEDS: SODIUM CHLOR 0.9% 1000 ML INJ 1,000 ML IV SCH (05:35)
[2017-07-05] MEDS: hydrALAZINE HCL 50 MG TAB PO SCH ×3 (06:23→21:06)
[2017-07-05] MEDS: ALPRAZolam 0.25 MG TAB PO PRN ×2 (06:29→21:07)
[2017-07-05 07:25] LABS: POTASSIUM 3.3 MEQ/L (3.5-5.1)
[2017-07-05 07:28] LABS: BICARBONATE 22.5 MEQ/L (21.0-32.0)
[2017-07-05] MEDS: INSULIN ASPART SUPPLEMENTAL SCALE SQ SCH ×4 (08:00→21:00)
[2017-07-05] MEDS: SODIUM CHLORIDE 0.9% FLUSH 10 ML FLUSH IV FLUSH SCH ×2 (08:00→21:07)
[2017-07-05] MEDS: METOPROLOL TARTRATE 25 MG TAB PO SCH ×2 (08:08→21:07)
[2017-07-05] MEDS: LACTOBACILLUS ACIDOPHILUS TAB PO SCH ×2 (08:08→21:06)
[2017-07-05] MEDS: INSULIN DETEMIR 100 UNITS/ML VIAL SQ SCH (08:08)
[2017-07-05 09:00] VITALS: BP 162/93; PULSE 87; RESP 18; TEMP 97.6; O2SAT 97
[2017-07-05 12:00] VITALS: BP 166/98; PULSE 81; RESP 18; TEMP 96.5; O2SAT 98
[2017-07-05] MEDS ORDERED: POTASSIUM CHLORIDE 10 MEQ CONTROLLED RELEASE TAB PO ONE (12:30)
--- NOTE | 2017-07-05 15:08 | HHI.PR ---
Subjective Remarks No further diarrhea. Patient has no complaints. Creatinine stable. Objective Vitals Vital Signs Date Time Temp Pulse Resp B/P (MAP) Pulse Ox O2 Delivery O2 Flow Rate FiO2 07/05/17 12:00 96.5 81 18 166/98 (120) 98 07/05/17 09:00 97.6 87 18 162/93 (116) 97 07/05/17 04:00 98.3 75 18 157/79 (105) 98 07/05/17 00:00 97.7 72 18 140/78 (98) 97 07/04/17 20:00 97.8 83 18 178/98 (124) 95 Manual Cuff/Auscultation 07/04/17 16:00 95.6 80 14 177/103 (127) 95 I/O 07/04/17 07/04/17 07/04/17 07/05/17 07/05/17 07/05/17 07:00 15:00 23:00 07:00 15:00 23:00 Intake Total 1050 ml 1019 ml 1141 ml 210 ml Output Total 500 ml 1225 ml 1500 ml Balance 550 ml 1019 ml -84 ml -1290 ml Intake Oral 118 ml 838 ml IV Total 1050 ml 901 ml 303 ml 210 ml Output Urine Total 500 ml 1225 ml 1500 ml # Voids 2 4 4 3 # Bowel Movements 4 5 2 Result Diagram: 07/05/17 0615 Objective Remarks GENERAL: Well-nourished, well-developed obese male patient. SKIN: Warm and dry. HEAD: Normocephalic. EYES: No scleral icterus. No injection or drainage. NECK: Supple, trachea midline. No JVD or lymphadenopathy. CARDIOVASCULAR: Regular rate and rhythm without murmurs, gallops, or rubs. RESPIRATORY: Breath sounds equal bilaterally. No accessory muscle use. GASTROINTESTINAL: Abdomen soft, non-tender, nondistended. EXTREMITIES: No cyanosis, or edema. Right foot in bandage, bandage not removed. NEUROLOGICAL: Awake, alert, and oriented x 3. Non-focal. A/P Problem List: (1) ATN (acute tubular necrosis) ICD Code: N17.0 - Acute kidney failure with tubular necrosis (2) Severe sepsis ICD Code: A41.9 - Sepsis, unspecified organism; R65.20 - Severe sepsis without septic shock Status: Acute (3) Diabetes mellitus, new onset ICD Code: E11.9 - Type 2 diabetes mellitus without complications (4) Cellulitis of foot ICD Code: L03.119 - Cellulitis of unspecified part of limb; R65.20 - Severe sepsis without septic shock Status: Acute (5) Diabetic foot ulcer ICD Code: E11.621 - Type 2 diabetes mellitus with foot ulcer; L97.509 - Non- pressure chronic ulcer of other part of unspecified foot with unspecified severity Status: Acute (6) HTN (hypertension) ICD Code: I10 - Essential (primary) hypertension Assessment and Plan Severe Sepsis, no longer with sepsis criteria Gram-positive bacteremia Patient presented with Leukocytosis 16.6, tachycardia 150. Lactate 2.2. Diabetic foot ulcer with cellulitis. Wound culture with Pseudomonas sensitive to Zosyn 3/4 positive blood cultures 1 with staph coag negative, the other 2 with anaerobic gram-positive cocci -final ID pending Repeat blood cultures negative for 3 days Echocardiogram shows normal systolic function, no vegetation Infectious disease following, appreciate input - Dr. Vogt. Vancomycin and zosyn DCed. Started on Levaquin 07/04. Diabetic ulcer of left foot with cellulitis Foot x-ray negative for air. CT exam which is negative for necrotizing fasciitis. Continue vancomycin and Zosyn. Podiatry following the patient, status post bedside I&D 07/01, cleared for discharge per podiatry, no concerns of osteomyelitis Sedimentation rate 56 9 C-reactive protein 11 Acute kidney injury suspect ATN due to vancomycin No improvement with IV fluids -HLIV Urinalysis without eosinophils or proteinuria kidney ultrasound without hydronephrosis. Did show that the right kidney slightly larger than the left. Nephrology following. Repeat BMP in the morning. Vancomycin DC'd Sinus tachycardia, improved Sinus tachycardia on telemetry. Improving with treatment of sepsis, new-onset diabetes. Cardiology consulted who indicated sinus tachycardia secondary to infection. Electrocardiogram appeared to be atrial flutter on admission however cardiology indicated sinus tachycardia. New onset diabetes with presenting Hyperglycemia Glucose of 413 on admission. Status post IV insulin in the ER. Hemoglobin A1c 10.1 Levemir 5 mg daily Accu-Cheks with sliding scale insulin Diabetic diet Patient has undergone education by case aide, dietitian Case management consulted for diabetic DME equipment Hypertension, uncontrolled Discontinued HCTZ and lisinopril due to the acute kidney injury Hydralazine 75 --> 100 3 times a day and cont Norvasc 10 mg daily Continue Lopressor 25 mg twice daily and Clonidine as needed Continue monitor blood pressure and adjust medications accordingly History of alcoholism. Patient reports history of extremely heavy alcohol use having quit several months ago. Discontinued CIWA protocol was initiated, patient did not require any treatment. Tobacco abuse. Cessation counseling provided. DVT prophylaxis: SCDs. Problem Qualifiers (1) Diabetic foot ulcer: Qualified Codes: E11.621 - Type 2 diabetes mellitus with foot ulcer; L97.521 - Non-pressure chronic ulcer of other part of left foot limited to breakdown of skin Corrine Baldwin MD Jul 05, 2017 15:08
[2017-07-05 16:00] VITALS: BP 165/103; PULSE 97; RESP 18; TEMP 97; O2SAT 94
--- NOTE | 2017-07-05 16:57 | HHI.NPPN ---
Subjective History of Present Illness 7-year-old male with past medical history of hypertension, history of chronic toe infection, diabetes mellitus new onset, came to the hospital because of swelling and redness of left big toe. I was called to see the patient because of elevated BUN and creatinine. The patient has normal creatinine of 1.1 on admission but it improve in the range of 0.4 to 0.5. Additional Remarks No acute complaints Review of Systems General Constitutional: Fatigue Cardiovascular Cardiac: OLVERA Objective Data Data 07/05/17 07/06/17 19:00 07:00 Intake Total 458 ml Balance 458 ml IV Total 458 ml # Voids 3 # Bowel Movements 2 Vital Signs Date Time Temp Pulse Resp B/P (MAP) Pulse Ox O2 Delivery O2 Flow Rate FiO2 07/05/17 16:00 97.0 97 18 165/103 (123) 94 07/05/17 12:00 96.5 81 18 166/98 (120) 98 07/05/17 09:00 97.6 87 18 162/93 (116) 97 07/05/17 04:00 98.3 75 18 157/79 (105) 98 07/05/17 00:00 97.7 72 18 140/78 (98) 97 07/04/17 20:00 97.8 83 18 178/98 (124) 95 Manual Cuff/Auscultation -: 07/05/17 0615 Physical Exam General Appearance: No Acute Distress, Comfortable Eyes Eye Exam: Pupils Equal Throat Throat Exam: Oral Mucosa [place] & Moist Neck Neck Exam: Neck Supple Pulmonary Resp Exam: Clear Bilaterally, Breath Sounds Equal, No Distress, Rhonchi, Decreased Bases Cardiology CV Exam: Regular, Normal Sinus Rhythm Gastrointestinal/Abdomen GI Exam: Soft, Non-Tender, Bowel Sounds Present Extremeties Extremities Exam: Trace Edema Neurologic Neuro Exam: Alert, Awake, Oriented Psychiatric Psych Exam: Appropriate Responses Assessment/Plan Assessment Summary: TROY/Acute Renal Failure, Hypertension, Diabetes Mellitus Problem List: (1) Diabetes mellitus, new onset ICD Codes: E11.9 - Type 2 diabetes mellitus without complications (2) Cellulitis of foot ICD Codes: L03.119 - Cellulitis of unspecified part of limb; R65.20 - Severe sepsis without septic shock Status: Acute (3) HTN (hypertension) ICD Codes: I10 - Essential (primary) hypertension (4) Diabetic foot ulcer ICD Codes: E11.621 - Type 2 diabetes mellitus with foot ulcer; L97.509 - Non- pressure chronic ulcer of other part of unspecified foot with unspecified severity Status: Acute (5) ATN (acute tubular necrosis) ICD Codes: N17.0 - Acute kidney failure with tubular necrosis Plan Patient has been non oliguric. Creatinine stable at 2.9 BP is stable. Urine Eosinophils negative and Na. is normal. Most likely has TROY either due to infection or Vancomycin toxicity. Had very high Vanco. level - off vanco now and on levaquin. Off IVFs, continue PO intake. Given potassium today. BP elevated, Hydralazine increased yesterday, will increase metoprolol today. Avoid Nephrotoxins. follow urine out put and BMP. Increased UOP today is encouraging. If improving creatinine tomorrow, may consider for D/C and follow-up outpatient with Dr. Altman Problem Qualifiers (1) Diabetic foot ulcer: Qualified Codes: E11.621 - Type 2 diabetes mellitus with foot ulcer; L97.521 - Non-pressure chronic ulcer of other part of left foot limited to breakdown of skin Aj Lujan MD Jul 05, 2017 16:57
[2017-07-05 20:00] VITALS: BP 144/97; PULSE 106; RESP 20; TEMP 97.1; O2SAT 98
[2017-07-05] MEDS: FAMOTIDINE 20 MG TAB PO SCH (21:06)
[2017-07-06] VITALS: BP 139/77; PULSE 78; RESP 20; TEMP 96.8; O2SAT 97
[2017-07-06 04:00] VITALS: BP 159/80; PULSE 83
[2017-07-06] MEDS: hydrALAZINE HCL 50 MG TAB PO SCH ×3 (04:55→21:07)
[2017-07-06 07:24] LABS: POTASSIUM 3.8 MEQ/L (3.5-5.1)
[2017-07-06 08:00] VITALS: BP 155/91; PULSE 108; RESP 18; TEMP 96.6; O2SAT 97
[2017-07-06] MEDS: INSULIN ASPART SUPPLEMENTAL SCALE SQ SCH ×4 (08:00→21:31)
[2017-07-06] MEDS: METOPROLOL TARTRATE 25 MG TAB PO SCH ×2 (08:10→21:05)
[2017-07-06] MEDS: LACTOBACILLUS ACIDOPHILUS TAB PO SCH ×2 (08:10→21:05)
[2017-07-06] MEDS: INSULIN DETEMIR 100 UNITS/ML VIAL SQ SCH (08:11)
[2017-07-06] MEDS: SODIUM CHLORIDE 0.9% FLUSH 10 ML FLUSH IV FLUSH SCH ×2 (09:00→21:04)
[2017-07-06] MEDS: LEVOFLOXACIN 750 MG TAB PO SCH (10:00)
[2017-07-06 12:00] VITALS: BP 151/93; PULSE 90; RESP 16; TEMP 98.1; O2SAT 98
--- NOTE | 2017-07-06 13:53 | HHI.PR ---
Subjective Remarks No complaints, urinating a lot. Objective Vitals Vital Signs Date Time Temp Pulse Resp B/P (MAP) Pulse Ox O2 Delivery O2 Flow Rate FiO2 07/06/17 12:00 98.1 90 16 151/93 (112) 98 07/06/17 08:00 96.6 108 18 155/91 (112) 97 07/06/17 04:00 83 159/80 (106) 07/06/17 00:00 96.8 78 20 139/77 (97) 97 07/05/17 20:00 97.1 106 20 144/97 (113) 98 07/05/17 16:00 97.0 97 18 165/103 (123) 94 I/O 07/05/17 07/05/17 07/05/17 07/06/17 07/06/17 07/06/17 07:00 15:00 23:00 07:00 15:00 23:00 Intake Total 210 ml 1778 ml 240 ml Output Total 1500 ml 450 ml Balance -1290 ml 1778 ml -210 ml Intake Oral 1320 ml 240 ml IV Total 210 ml 458 ml Output Urine Total 1500 ml 450 ml # Voids 3 1 # Bowel Movements 2 Result Diagram: 07/06/17 0630 Objective Remarks GENERAL: Well-nourished, well-developed obese male patient. SKIN: Warm and dry. HEAD: Normocephalic. EYES: No scleral icterus. No injection or drainage. NECK: Supple, trachea midline. No JVD or lymphadenopathy. CARDIOVASCULAR: Regular rate and rhythm without murmurs, gallops, or rubs. RESPIRATORY: Breath sounds equal bilaterally. No accessory muscle use. GASTROINTESTINAL: Abdomen soft, non-tender, nondistended. EXTREMITIES: No cyanosis, or edema. Right foot in bandage, bandage not removed. NEUROLOGICAL: Awake, alert, and oriented x 3. Non-focal. A/P Problem List: (1) ATN (acute tubular necrosis) ICD Code: N17.0 - Acute kidney failure with tubular necrosis (2) Severe sepsis ICD Code: A41.9 - Sepsis, unspecified organism; R65.20 - Severe sepsis without septic shock Status: Acute (3) Diabetes mellitus, new onset ICD Code: E11.9 - Type 2 diabetes mellitus without complications (4) Cellulitis of foot ICD Code: L03.119 - Cellulitis of unspecified part of limb; R65.20 - Severe sepsis without septic shock Status: Acute (5) Diabetic foot ulcer ICD Code: E11.621 - Type 2 diabetes mellitus with foot ulcer; L97.509 - Non- pressure chronic ulcer of other part of unspecified foot with unspecified severity Status: Acute (6) HTN (hypertension) ICD Code: I10 - Essential (primary) hypertension Assessment and Plan Severe Sepsis, no longer with sepsis criteria Gram-positive bacteremia Patient presented with Leukocytosis 16.6, tachycardia 150. Lactate 2.2. Diabetic foot ulcer with cellulitis. Wound culture with Pseudomonas sensitive to Zosyn 3/4 positive blood cultures 1 with staph coag negative, the other 2 with anaerobic gram-positive cocci -final ID pending Repeat blood cultures negative for 3 days Echocardiogram shows normal systolic function, no vegetation Infectious disease following, appreciate input - Dr. Vogt. Vancomycin and zosyn DCed. Started on Levaquin 07/04. Diabetic ulcer of left foot with cellulitis Foot x-ray negative for air. CT exam which is negative for necrotizing fasciitis. Continue vancomycin and Zosyn. Podiatry following the patient, status post bedside I&D 07/01, cleared for discharge per podiatry, no concerns of osteomyelitis Sedimentation rate 56 9 C-reactive protein 11 Acute kidney injury suspect ATN due to vancomycin No improvement with IV fluids -HLIV Urinalysis without eosinophils or proteinuria kidney ultrasound without hydronephrosis. Did show that the right kidney slightly larger than the left. Nephrology following. Repeat BMP in the morning. Vancomycin DC'd Sinus tachycardia, improved Sinus tachycardia on telemetry. Improving with treatment of sepsis, new-onset diabetes. Cardiology consulted who indicated sinus tachycardia secondary to infection. Electrocardiogram appeared to be atrial flutter on admission however cardiology indicated sinus tachycardia. New onset diabetes with presenting Hyperglycemia Glucose of 413 on admission. Status post IV insulin in the ER. Hemoglobin A1c 10.1 Levemir 5 mg daily Accu-Cheks with sliding scale insulin Diabetic diet Patient has undergone education by life educator, dietitian Case management consulted for diabetic DME equipment Hypertension, uncontrolled Discontinued HCTZ and lisinopril due to the acute kidney injury Hydralazine 75 --> 100 3 times a day and cont Norvasc 10 mg daily Continue Lopressor 25 mg twice daily and Clonidine as needed Continue monitor blood pressure and adjust medications accordingly History of alcoholism. Patient reports history of extremely heavy alcohol use having quit several months ago. Discontinued CIWA protocol was initiated, patient did not require any treatment. Tobacco abuse. Cessation counseling provided. DVT prophylaxis: SCDs. Discharge Planning DC home pending improvement in kidney function. Problem Qualifiers (1) Diabetic foot ulcer: Qualified Codes: E11.621 - Type 2 diabetes mellitus with foot ulcer; L97.521 - Non-pressure chronic ulcer of other part of left foot limited to breakdown of skin Corrine Baldwin MD Jul 06, 2017 13:53
[2017-07-06 16:00] VITALS: BP 154/82; PULSE 86; TEMP 97.3; O2SAT 97
[2017-07-06 20:00] VITALS: BP 154/89; PULSE 81; RESP 18; TEMP 97.9; O2SAT 97
[2017-07-06] MEDS: ALPRAZolam 0.25 MG TAB PO PRN (21:06)
[2017-07-06] MEDS: FAMOTIDINE 20 MG TAB PO SCH (21:06)
[2017-07-07] VITALS: BP 166/82; PULSE 87; RESP 18; TEMP 97.5; O2SAT 98
[2017-07-07] MEDS: hydrALAZINE HCL 50 MG TAB PO SCH ×3 (06:32→21:19)
[2017-07-07 08:00] VITALS: BP 148/82; PULSE 62; RESP 16; TEMP 97.5; O2SAT 98
[2017-07-07] MEDS: METOPROLOL TARTRATE 25 MG TAB PO SCH ×2 (08:28→21:18)
[2017-07-07] MEDS: SODIUM CHLORIDE 0.9% FLUSH 10 ML FLUSH IV FLUSH SCH ×2 (08:28→21:00)
[2017-07-07] MEDS: INSULIN ASPART SUPPLEMENTAL SCALE SQ SCH ×4 (08:28→21:00)
[2017-07-07] MEDS: INSULIN DETEMIR 100 UNITS/ML VIAL SQ SCH (08:28)
[2017-07-07] MEDS: LACTOBACILLUS ACIDOPHILUS TAB PO SCH ×2 (08:28→21:19)
[2017-07-07 12:00] VITALS: BP 158/95; PULSE 78; RESP 16; TEMP 98.7; O2SAT 98
--- NOTE | 2017-07-07 12:13 | HHI.PR ---
Subjective Remarks Follow-up sepsis/diabetic foot infection/acute on chronic renal failure 07/07/17-patient seen and examined, currently afebrile, denies any right lower extremity pain. Renal indices with creatinine of 3.0 today. Good urine output Objective Vitals Vital Signs Date Time Temp Pulse Resp B/P (MAP) Pulse Ox O2 Delivery O2 Flow Rate FiO2 07/07/17 08:00 97.5 62 16 98 148/82 (104) 07/07/17 00:00 97.5 87 18 166/82 (110) 98 07/06/17 20:00 97.9 81 18 154/89 (110) 97 07/06/17 16:00 97.3 86 154/82 (106) 97 I/O 07/06/17 07/06/17 07/06/17 07/07/17 07/07/17 07/07/17 07:00 15:00 23:00 07:00 15:00 23:00 Intake Total 240 ml 600 ml Output Total 450 ml 400 ml Balance -210 ml -400 ml 600 ml Intake Oral 240 ml 600 ml Output Urine Total 450 ml 400 ml # Voids 5 3 # Bowel Movements 1 Result Diagram: 07/07/17 0514 Imaging Last Impressions Renal Ultrasound 07/03/17 0000 Signed Impressions: Service Date/Time: June 09:46 - CONCLUSION: 1. Mild size discrepancy between kidneys with the right slightly larger than the left. 2. Otherwise negative. Urinary bladder is decompressed. Aristeo Hayden MD Foot MRI 06/28/17 0000 Signed Impressions: Service Date/Time: Wednesday, June 28, 2017 13:10 - CONCLUSION: 1. There is heterogeneous enhancement and signal within the distal aspect of the first digit particularly along the lateral aspect. However, no fluid collection or abscess is appreciated. 2. There is a mild degree of abnormal signal and enhancement within the first digit proximal phalanx but it does not definitely meet imaging criteria to confidently diagnose osteomyelitis. Suggest followup MRI if symptoms persist. Enrique Lane MD Chest X-Ray 06/27/17 0000 Signed Impressions: Service Date/Time: Tuesday, June 27, 2017 06:12 - CONCLUSION: 1. No acute cardiopulmonary disease. Taras Su MD Lower Extremity CT 06/26/17 0000 Signed Impressions: Service Date/Time: June 13:58 - CONCLUSION: 1. Soft tissue swelling along the medial aspect of the forefoot with ulceration on the plantar surface of the great toe. 2. No evidence of destructive bone changes. 3. No evidence of soft tissue air to suggest necrotizing fasciitis. Alcides Burris MD Foot X-Ray 06/26/17 0000 Signed Impressions: Service Date/Time: June 12:28 - CONCLUSION: Soft tissue swelling of the first digit with possible wound on the plantar aspect. No acute osseous abnormality is identified. Enrique Lane MD Objective Remarks GENERAL: NAD SKIN: Warm and dry.dressing over right foot HEAD: Normocephalic. EYES: No scleral icterus. No injection or drainage. NECK: Supple, trachea midline. No JVD or lymphadenopathy. CARDIOVASCULAR: Regular rate and rhythm without murmurs, gallops, or rubs. RESPIRATORY: Breath sounds equal bilaterally. No accessory muscle use. GASTROINTESTINAL: Abdomen soft, non-tender, nondistended. MUSCULOSKELETAL: No cyanosis, or edema. BACK: Nontender without obvious deformity. No CVA tenderness. A/P Problem List: (1) ATN (acute tubular necrosis) ICD Code: N17.0 - Acute kidney failure with tubular necrosis (2) Severe sepsis ICD Code: A41.9 - Sepsis, unspecified organism; R65.20 - Severe sepsis without septic shock Status: Acute (3) Diabetes mellitus, new onset ICD Code: E11.9 - Type 2 diabetes mellitus without complications (4) Cellulitis of foot ICD Code: L03.119 - Cellulitis of unspecified part of limb; R65.20 - Severe sepsis without septic shock Status: Acute (5) Diabetic foot ulcer ICD Code: E11.621 - Type 2 diabetes mellitus with foot ulcer; L97.509 - Non- pressure chronic ulcer of other part of unspecified foot with unspecified severity Status: Acute (6) HTN (hypertension) ICD Code: I10 - Essential (primary) hypertension Assessment and Plan 47-year-old man with Severe Sepsis-resolved Gram-positive bacteremia Wound culture with Pseudomonas Currently on Levaquin 750 mg every 48 hour per ID, will need 7 more days total to complete therapy Echocardiogram shows normal systolic function, no vegetation Diabetic ulcer of left foot with cellulitis Foot x-ray negative for air. CT exam which is negative for necrotizing fasciitis. status post bedside I&D 07/01, cleared for discharge per podiatry, no concerns of osteomyelitis Started post vancomycin and Zosyn, currently on Levaquin by mouth Acute kidney injury suspect ATN due to vancomycin Urinalysis without eosinophils or proteinuria kidney ultrasound without hydronephrosis. Slight uptake of creatinine to 3.0 Nephrology following. Sinus tachycardia, improved Cardiology consulted who indicated sinus tachycardia secondary to infection. Electrocardiogram appeared to be atrial flutter on admission however cardiology indicated sinus tachycardia. New onset diabetes with presenting Hyperglycemia Hemoglobin A1c 10.1 Levemir 5 mg daily, Accu-Cheks with sliding scale insulin Hypertension s/p HCTZ and lisinopril due to the acute kidney injury Hydralazine 100 3 times a day and cont Norvasc 10 mg daily Continue Lopressor 25 mg twice daily and Clonidine as needed History of alcoholism. Patient reports history of extremely heavy alcohol use having quit several months ago. Tobacco abuse. Cessation counseling provided. DVT prophylaxis: SCDs. Problem Qualifiers (1) Diabetic foot ulcer: Qualified Codes: E11.621 - Type 2 diabetes mellitus with foot ulcer; L97.521 - Non-pressure chronic ulcer of other part of left foot limited to breakdown of skin Ryan Garnett MD Jul 07, 2017 12:13
--- NOTE | 2017-07-07 12:18 | HHI.DS ---
Discharge Summary Admission Date Jun 26, 2017 at 13:38 Discharge Date: Jul 08, 2017 Admitting Diagnosis Severe Sepsis 2/2 Cellulitis, New Dx DM (1) ATN (acute tubular necrosis) ICD Code: N17.0 - Acute kidney failure with tubular necrosis (2) Severe sepsis ICD Code: A41.9 - Sepsis, unspecified organism; R65.20 - Severe sepsis without septic shock Status: Acute (3) Diabetes mellitus, new onset ICD Code: E11.9 - Type 2 diabetes mellitus without complications (4) Cellulitis of foot ICD Code: L03.119 - Cellulitis of unspecified part of limb; R65.20 - Severe sepsis without septic shock Status: Acute (5) Diabetic foot ulcer ICD Code: E11.621 - Type 2 diabetes mellitus with foot ulcer; L97.509 - Non- pressure chronic ulcer of other part of unspecified foot with unspecified severity Status: Acute (6) HTN (hypertension) ICD Code: I10 - Essential (primary) hypertension Procedures Bedside I&D 07/01/17 Brief History - From Admission 47/ M came in because of swelling and redness of his left big toe / foot. He is not really how it started but he has a ulcer on left big toe that is draining. He noticed worsening redness and swelling 3 days before admission. He was found to have a sugar >400 on admission. Patient says he is better today. No pain in foot. Low grade fever on admission. CBC/BMP: 07/07/17 0514 Significant Findings Laboratory Tests Test 07/05/17 06:15 07/06/17 06:30 07/07/17 05:14 Creatinine 2.90 MG/DL (0.60-1.30) 3.00 MG/DL (0.60-1.30) 3.00 MG/DL (0.60-1.30) Random Glucose 136 MG/DL (74-106) 146 MG/DL (74-106) Calcium Level 8.3 MG/DL (8.5-10.1) Potassium Level 3.3 MEQ/L (3.5-5.1) Chloride Level 109 MEQ/L (98-107) 108 MEQ/L (98-107) Estimat Glomerular Filtration Rate 23 ML/MIN (>89) 23 ML/MIN (>89) 23 ML/MIN (>89) Imaging Last Impressions Renal Ultrasound 07/03/17 0000 Signed Impressions: Service Date/Time: June 09:46 - CONCLUSION: 1. Mild size discrepancy between kidneys with the right slightly larger than the left. 2. Otherwise negative. Urinary bladder is decompressed. Aristeo Hayedn MD Foot MRI 06/28/17 0000 Signed Impressions: Service Date/Time: Wednesday, June 28, 2017 13:10 - CONCLUSION: 1. There is heterogeneous enhancement and signal within the distal aspect of the first digit particularly along the lateral aspect. However, no fluid collection or abscess is appreciated. 2. There is a mild degree of abnormal signal and enhancement within the first digit proximal phalanx but it does not definitely meet imaging criteria to confidently diagnose osteomyelitis. Suggest followup MRI if symptoms persist. Enrique Lane MD Chest X-Ray 06/27/17 0000 Signed Impressions: Service Date/Time: Tuesday, June 27, 2017 06:12 - CONCLUSION: 1. No acute cardiopulmonary disease. Taras Su MD Lower Extremity CT 06/26/17 0000 Signed Impressions: Service Date/Time: June 13:58 - CONCLUSION: 1. Soft tissue swelling along the medial aspect of the forefoot with ulceration on the plantar surface of the great toe. 2. No evidence of destructive bone changes. 3. No evidence of soft tissue air to suggest necrotizing fasciitis. Alcides Burris MD Foot X-Ray 06/26/17 0000 Signed Impressions: Service Date/Time: June 12:28 - CONCLUSION: Soft tissue swelling of the first digit with possible wound on the plantar aspect. No acute osseous abnormality is identified. Enrique Lane MD PE at Discharge GENERAL: NAD SKIN: Warm and dry.dressing over right foot HEAD: Normocephalic. EYES: No scleral icterus. No injection or drainage. NECK: Supple, trachea midline. No JVD or lymphadenopathy. CARDIOVASCULAR: Regular rate and rhythm without murmurs, gallops, or rubs. RESPIRATORY: Breath sounds equal bilaterally. No accessory muscle use. GASTROINTESTINAL: Abdomen soft, non-tender, nondistended. MUSCULOSKELETAL: No cyanosis, or edema. BACK: Nontender without obvious deformity. No CVA tenderness. Hospital Course Patient admitted secondary to sepsis due to right lower extremity cellulitis and started on IV antibiotics with consultation to infectious disease specialist. He was further diagnosed with diabetic foot infections. Podiatry was consulted and patient had bedside I&D performed. Secondary to worsening renal function nephrology was consulted and renal indices were monitored throughout hospitalization. Cardiology was consulted due to tachycardia on telemetry however recommendation was made to continue with therapy secondary to infectious process. Patient was treated to oral antibiotics which will complete for total of 7 days. He was diagnosed with diabetes type 2 and patient was started on basal insulin along with sliding scale with consultation to family life educator nurse. DVT and GI prophylaxis were provided. Physical therapy was consulted. Prior to discharge, patient's condition improved and vitals remained stable. Pt Condition on Discharge: Stable Discharge Disposition: Discharge Home Discharge Time: > 30 minutes Discharge Instructions DIET: Follow Instructions for: Diabetic Diet Activities you can perform: Regular-No Restrictions Follow up Referrals: Nephrology PCP Follow-up - 1 Week New Orders: BASIC METABOLIC PROF - 3-5 Days New Medications: Blood Glucose Monitoring W/Device (Glucocom Blood Glucose Mo W/Device) 1 Kit Kit KIT .ROUTE DIRECTED for Blood Sugar Management, #1 Glucocom Test Strips (Glucocom Test Strips) 1 Sienna Sienna EA .ROUTE DIRECTED for Blood Sugar Management, #1 Insulin Syringe/U-100/31G X 5/16" 1 ml (Insulin Syringe/U-100/31G X 5/16" 1 ml) 31 Gauge X 5/16" Mis EA .ROUTE DIRECTED for Blood Sugar Management, #1 0 Refills Lancets (Lancets) 1 Mis Mis EA .ROUTE DIRECTED for Blood Sugar Management, #1 0 Refills Walker Rolling/GetGo (Walker Rolling/GetGo) 1 Mis Mis EA .ROUTE DIRECTED, #1 Wheelchair (Wheelchair) 1 Each Each EA, #1 Amlodipine (Norvasc) 10 Mg Tab 10 MG PO DAILY for Blood Pressure Management, #30 TAB 11 Refills Hydralazine HCl (Hydralazine HCl) 50 Mg Tablet 75 MG PO Q8HR for Blood Pressure Management, #90 MG 11 Refills Insulin Aspart Inj (Novolog Inj) 100 Unit/Ml Inj 1 UNIT SQ ACHS SLIDING SCALE for Blood Sugar Management, #100 INJECTION 11 Refills Insulin Detemir Inj (Levemir Inj) 1,000 unit/ 10 ML Vial 5 UNITS SQ DAILY for Blood Sugar Management, #100 INJECTION 11 Refills Do not mix with any other Insulin. Lactobacillus Acidophilus (Acidophilus/l-Sporogenes) 35 Million Cell-25 Million Cell Tab 1 TAB PO Q12HR for Immunosuppression, #60 TAB Levofloxacin (Levaquin) 750 Mg Tablet 750 MG PO Q48H for Infection, #7 MG Metoprolol Tartrate (Metoprolol Tartrate) 25 Mg Tab 75 MG PO Q12HR for Blood Pressure Management, #60 TAB 11 Refills Ryan Garnett MD Jul 07, 2017 12:18
[2017-07-07] MEDS ORDERED: LEVA750T9 PO (12:21)
[2017-07-07] MEDS ORDERED: METO25TA3 PO (12:21)
[2017-07-07] MEDS ORDERED: HYDR-3800 PO (12:21)
[2017-07-07] MEDS ORDERED: LEVEMIR SQ (12:21)
[2017-07-07] MEDS ORDERED: LACT PO (12:21)
[2017-07-07] MEDS ORDERED: AMLO10 PO (12:21)
[2017-07-07] MEDS ORDERED: NOVOLOGSS SQ (12:21)
--- NOTE | 2017-07-07 14:52 | HHI.NPPN ---
Subjective History of Present Illness 7-year-old male with past medical history of hypertension, history of chronic toe infection, diabetes mellitus new onset, came to the hospital because of swelling and redness of left big toe. I was called to see the patient because of elevated BUN and creatinine. The patient has normal creatinine of 1.1 on admission but it improve in the range of 0.4 to 0.5. Additional Remarks Patient is alert, eating well, no complain. Review of Systems General Constitutional: Fatigue Cardiovascular Cardiac: OLVERA Objective Data Data Vital Signs Date Time Temp Pulse Resp B/P (MAP) Pulse Ox O2 Delivery O2 Flow Rate FiO2 07/07/17 12:00 98.7 78 16 158/95 (116) 98 07/07/17 08:00 97.5 62 16 98 148/82 (104) 07/07/17 00:00 97.5 87 18 166/82 (110) 98 07/06/17 20:00 97.9 81 18 154/89 (110) 97 07/06/17 16:00 97.3 86 154/82 (106) 97 -: 07/07/17 0514 Physical Exam General Appearance: No Acute Distress, Comfortable Eyes Eye Exam: Pupils Equal Throat Throat Exam: Oral Mucosa [place] & Moist Neck Neck Exam: Neck Supple Pulmonary Resp Exam: Clear Bilaterally, Breath Sounds Equal, No Distress, Rhonchi, Decreased Bases Cardiology CV Exam: Regular, Normal Sinus Rhythm Gastrointestinal/Abdomen GI Exam: Soft, Non-Tender, Bowel Sounds Present Extremeties Extremities Exam: Trace Edema Neurologic Neuro Exam: Alert, Awake, Oriented Psychiatric Psych Exam: Appropriate Responses Assessment/Plan Assessment Summary: TROY/Acute Renal Failure, Hypertension, Diabetes Mellitus Problem List: (1) Diabetes mellitus, new onset ICD Codes: E11.9 - Type 2 diabetes mellitus without complications (2) Cellulitis of foot ICD Codes: L03.119 - Cellulitis of unspecified part of limb; R65.20 - Severe sepsis without septic shock Status: Acute (3) HTN (hypertension) ICD Codes: I10 - Essential (primary) hypertension (4) Diabetic foot ulcer ICD Codes: E11.621 - Type 2 diabetes mellitus with foot ulcer; L97.509 - Non- pressure chronic ulcer of other part of unspecified foot with unspecified severity Status: Acute (5) ATN (acute tubular necrosis) ICD Codes: N17.0 - Acute kidney failure with tubular necrosis Plan Patient has been non oliguric. Creatinine stable at 2.9 BP is stable. Urine Eosinophils negative and Na. is normal. Most likely has TROY either due to infection or Vancomycin toxicity. Had very high Vanco. level - off vanco now and on levaquin. Off IVFs, continue PO intake. Given potassium today. BP is still elevated but better than before, Hydralazine and metoprolol increased, will follow. Avoid Nephrotoxins. Creatinine is 3.0, stable. If D/C, will need to follow with PCP with repeat BMP in 1 week. Can be referred to Nephrology if needed. Problem Qualifiers (1) Diabetic foot ulcer: Qualified Codes: E11.621 - Type 2 diabetes mellitus with foot ulcer; L97.521 - Non-pressure chronic ulcer of other part of left foot limited to breakdown of skin Camila Altman MD Jul 07, 2017 14:52
[2017-07-07 16:00] VITALS: BP 151/90; PULSE 89; RESP 16; TEMP 97.8; O2SAT 96
[2017-07-07 20:00] VITALS: BP 159/83; PULSE 99; RESP 20; TEMP 96.1; O2SAT 98
[2017-07-07] MEDS: FAMOTIDINE 20 MG TAB PO SCH (21:19)
[2017-07-08] VITALS: BP 128/74; PULSE 79; RESP 20; TEMP 98.1; O2SAT 97
[2017-07-08] MEDS: hydrALAZINE HCL 50 MG TAB PO SCH ×2 (05:43→13:12)
[2017-07-08] MEDS: INSULIN ASPART SUPPLEMENTAL SCALE SQ SCH ×3 (07:27→17:00)
[2017-07-08 08:00] VITALS: BP 162/95; PULSE 95; RESP 16; TEMP 97.2; O2SAT 97
[2017-07-08] MEDS: SODIUM CHLORIDE 0.9% FLUSH 10 ML FLUSH IV FLUSH SCH (09:08)
[2017-07-08] MEDS: INSULIN DETEMIR 100 UNITS/ML VIAL SQ SCH (09:08)
[2017-07-08] MEDS: METOPROLOL TARTRATE 25 MG TAB PO SCH (09:08)
[2017-07-08] MEDS: LACTOBACILLUS ACIDOPHILUS TAB PO SCH (09:08)
[2017-07-08] MEDS: LEVOFLOXACIN 750 MG TAB PO SCH (09:08)
[2017-07-08 09:12] LABS: POTASSIUM 3.7 MEQ/L (3.5-5.1)
[2017-07-08 09:16] LABS: BICARBONATE 25.3 MEQ/L (21.0-32.0)
--- NOTE | 2017-07-08 10:51 | HHI.PR ---
Subjective Remarks Follow-up sepsis/diabetic foot infection/acute on chronic renal failure 07/07/17-patient seen and examined, currently afebrile, denies any right lower extremity pain. Renal indices with creatinine of 3.0 today. Good urine output 07/08/17-patient seen and examined, Cr up to 3.1 otherwise no other issues. Patient was up and ambulated with PT. Objective Vitals Vital Signs Date Time Temp Pulse Resp B/P (MAP) Pulse Ox O2 Delivery O2 Flow Rate FiO2 07/08/17 08:00 97.2 95 16 162/95 (117) 97 07/08/17 00:00 98.1 79 20 128/74 (92) 97 07/07/17 20:00 96.1 99 20 159/83 (108) 98 Manual Cuff/Auscultation 07/07/17 16:00 97.8 89 16 151/90 (110) 96 07/07/17 12:00 98.7 78 16 158/95 (116) 98 I/O 07/07/17 07/07/17 07/07/17 07/08/17 07/08/17 07/08/17 07:00 15:00 23:00 07:00 15:00 23:00 Intake Total 1200 ml 120 ml Balance 1200 ml 120 ml Intake Oral 1200 ml 120 ml # Voids 3 4 2 # Bowel Movements 0 Result Diagram: 07/08/17 0850 Imaging Last Impressions Renal Ultrasound 07/03/17 0000 Signed Impressions: Service Date/Time: June 09:46 - CONCLUSION: 1. Mild size discrepancy between kidneys with the right slightly larger than the left. 2. Otherwise negative. Urinary bladder is decompressed. Aristeo Hayden MD Foot MRI 06/28/17 0000 Signed Impressions: Service Date/Time: Wednesday, June 28, 2017 13:10 - CONCLUSION: 1. There is heterogeneous enhancement and signal within the distal aspect of the first digit particularly along the lateral aspect. However, no fluid collection or abscess is appreciated. 2. There is a mild degree of abnormal signal and enhancement within the first digit proximal phalanx but it does not definitely meet imaging criteria to confidently diagnose osteomyelitis. Suggest followup MRI if symptoms persist. Enrique Lane MD Chest X-Ray 06/27/17 0000 Signed Impressions: Service Date/Time: Tuesday, June 27, 2017 06:12 - CONCLUSION: 1. No acute cardiopulmonary disease. Taras Su MD Lower Extremity CT 06/26/17 0000 Signed Impressions: Service Date/Time: June 13:58 - CONCLUSION: 1. Soft tissue swelling along the medial aspect of the forefoot with ulceration on the plantar surface of the great toe. 2. No evidence of destructive bone changes. 3. No evidence of soft tissue air to suggest necrotizing fasciitis. Alcides Burris MD Foot X-Ray 06/26/17 0000 Signed Impressions: Service Date/Time: June 12:28 - CONCLUSION: Soft tissue swelling of the first digit with possible wound on the plantar aspect. No acute osseous abnormality is identified. Enrique Lane MD Objective Remarks GENERAL: NAD SKIN: Warm and dry.dressing over right foot HEAD: Normocephalic. EYES: No scleral icterus. No injection or drainage. NECK: Supple, trachea midline. No JVD or lymphadenopathy. CARDIOVASCULAR: Regular rate and rhythm without murmurs, gallops, or rubs. RESPIRATORY: Breath sounds equal bilaterally. No accessory muscle use. GASTROINTESTINAL: Abdomen soft, non-tender, nondistended. MUSCULOSKELETAL: No cyanosis, or edema. Dressing over left big toe BACK: Nontender without obvious deformity. No CVA tenderness. Procedures Bedside I&D 07/01/17 A/P Problem List: (1) ATN (acute tubular necrosis) ICD Code: N17.0 - Acute kidney failure with tubular necrosis (2) Severe sepsis ICD Code: A41.9 - Sepsis, unspecified organism; R65.20 - Severe sepsis without septic shock Status: Acute (3) Diabetes mellitus, new onset ICD Code: E11.9 - Type 2 diabetes mellitus without complications (4) Cellulitis of foot ICD Code: L03.119 - Cellulitis of unspecified part of limb; R65.20 - Severe sepsis without septic shock Status: Acute (5) Diabetic foot ulcer ICD Code: E11.621 - Type 2 diabetes mellitus with foot ulcer; L97.509 - Non- pressure chronic ulcer of other part of unspecified foot with unspecified severity Status: Acute (6) HTN (hypertension) ICD Code: I10 - Essential (primary) hypertension Assessment and Plan 47-year-old man with Severe Sepsis-resolved Gram-positive bacteremia Wound culture with Pseudomonas Currently on Levaquin 750 mg every 48 hour per ID, will need 7 more days total to complete therapy Echocardiogram shows normal systolic function, no vegetation Diabetic ulcer of left foot with cellulitis Foot x-ray negative for air. CT exam which is negative for necrotizing fasciitis. status post bedside I&D 07/01, cleared for discharge per podiatry, no concerns of osteomyelitis Started post vancomycin and Zosyn, currently on Levaquin by mouth Acute kidney injury suspect ATN due to vancomycin Urinalysis without eosinophils or proteinuria kidney ultrasound without hydronephrosis. Slight uptake of creatinine to 3.1 today Nephrology following. Sinus tachycardia, improved Cardiology consulted who indicated sinus tachycardia secondary to infection. Electrocardiogram appeared to be atrial flutter on admission however cardiology indicated sinus tachycardia. New onset diabetes with presenting Hyperglycemia Hemoglobin A1c 10.1 Levemir 5 mg daily, Accu-Cheks with sliding scale insulin Hypertension s/p HCTZ and lisinopril due to the acute kidney injury Hydralazine 100 3 times a day and cont Norvasc 10 mg daily Continue Lopressor 25 mg twice daily and Clonidine as needed History of alcoholism. Rally pack, Tobacco abuse. Cessation counseling provided. DVT prophylaxis: SCDs. Problem Qualifiers (1) Diabetic foot ulcer: Qualified Codes: E11.621 - Type 2 diabetes mellitus with foot ulcer; L97.521 - Non-pressure chronic ulcer of other part of left foot limited to breakdown of skin Ryan Garnett MD Jul 08, 2017 10:51
[2017-07-08 12:00] VITALS: BP 152/91; PULSE 80; RESP 15; TEMP 97.7; O2SAT 97
--- NOTE | 2017-07-08 14:17 | HHI.NPPN ---
Subjective History of Present Illness 7-year-old male with past medical history of hypertension, history of chronic toe infection, diabetes mellitus new onset, came to the hospital because of swelling and redness of left big toe. I was called to see the patient because of elevated BUN and creatinine. The patient has normal creatinine of 1.1 on admission but it improve in the range of 0.4 to 0.5. Additional Remarks Patient is alert, eating well, no complain, clinically same. Review of Systems General Constitutional: Fatigue Cardiovascular Cardiac: OLVERA Objective Data Data 07/08/17 07/09/17 19:00 07:00 Intake Total 500 ml Output Total 501 ml Balance -1 ml Intake Oral 500 ml Output Urine Total 500 ml Stool Total 1 ml Vital Signs Date Time Temp Pulse Resp B/P (MAP) Pulse Ox O2 Delivery O2 Flow Rate FiO2 07/08/17 12:00 97.7 80 15 152/91 (111) 97 07/08/17 08:00 97.2 95 16 162/95 (117) 97 07/08/17 00:00 98.1 79 20 128/74 (92) 97 07/07/17 20:00 96.1 99 20 159/83 (108) 98 Manual Cuff/Auscultation 07/07/17 16:00 97.8 89 16 151/90 (110) 96 -: 07/08/17 0850 Physical Exam General Appearance: No Acute Distress, Comfortable Eyes Eye Exam: Pupils Equal Throat Throat Exam: Oral Mucosa [place] & Moist Neck Neck Exam: Neck Supple Pulmonary Resp Exam: Clear Bilaterally, Breath Sounds Equal, No Distress, Rhonchi, Decreased Bases Cardiology CV Exam: Regular, Normal Sinus Rhythm Gastrointestinal/Abdomen GI Exam: Soft, Non-Tender, Bowel Sounds Present Extremeties Extremities Exam: Trace Edema Neurologic Neuro Exam: Alert, Awake, Oriented Psychiatric Psych Exam: Appropriate Responses Assessment/Plan Assessment Summary: TROY/Acute Renal Failure, Hypertension, Diabetes Mellitus Problem List: (1) Diabetes mellitus, new onset ICD Codes: E11.9 - Type 2 diabetes mellitus without complications (2) Cellulitis of foot ICD Codes: L03.119 - Cellulitis of unspecified part of limb; R65.20 - Severe sepsis without septic shock Status: Acute (3) HTN (hypertension) ICD Codes: I10 - Essential (primary) hypertension (4) Diabetic foot ulcer ICD Codes: E11.621 - Type 2 diabetes mellitus with foot ulcer; L97.509 - Non- pressure chronic ulcer of other part of unspecified foot with unspecified severity Status: Acute (5) ATN (acute tubular necrosis) ICD Codes: N17.0 - Acute kidney failure with tubular necrosis Plan Patient has been non oliguric. Has TROY BP is stable. Urine Eosinophils negative and Na. is normal. Most likely has TROY either due to infection or Vancomycin toxicity. Had very high Vanco. level - off vanco now and on levaquin. Off IVFs, continue PO intake. Given potassium today. BP is still elevated but better than before, Hydralazine and metoprolol increased, will follow. Avoid Nephrotoxins. Creatinine is 3.0- 3.1, stable. If D/C, will need to follow with PCP with repeat BMP in 1 week. Can be referred to Nephrology if needed. Problem Qualifiers (1) Diabetic foot ulcer: Qualified Codes: E11.621 - Type 2 diabetes mellitus with foot ulcer; L97.521 - Non-pressure chronic ulcer of other part of left foot limited to breakdown of skin Camila Altman MD Jul 08, 2017 14:17
[2017-07-08 16:00] VITALS: BP 137/75; PULSE 87; RESP 16; TEMP 98.5; O2SAT 97
== END 2017-07-08 17:21 | disposition home health service (06) | DRG 871 ==
LOC: PHED 11:47 → PHEDA 13:38 → PH3A 15:05 → PHICU 22:09 → PH3B 06-28 12:32
PROVIDERS: ADMIT Hospitalist; ATTEND Hospitalist
PROC: 0HBNXZZ Excision of Left Foot Skin, External Approach (ICD-10-PCS; principal; 2017-07-01)
DX: A41.9 Sepsis, unspecified organism (principal); N17.0 Acute kidney failure with tubular necrosis; L03.115 Cellulitis of right lower limb; L03.116 Cellulitis of left lower limb; E11.22 Type 2 diabetes mellitus with diabetic chronic kidney disease; E11.621 Type 2 diabetes mellitus with foot ulcer; I12.9 Hypertensive chronic kidney disease with stage 1 through stage 4 chronic kidney disease, or unspecified chronic kidney disease; R65.20 Severe sepsis without septic shock; N18.9 Chronic kidney disease, unspecified; Z80.6 Family history of leukemia; Z83.3 Family history of diabetes mellitus; Z82.49 Family history of ischemic heart disease and other diseases of the circulatory system; F17.210 Nicotine dependence, cigarettes, uncomplicated; E11.65 Type 2 diabetes mellitus with hyperglycemia; L97.519 Non-pressure chronic ulcer of other part of right foot with unspecified severity; L97.521 Non-pressure chronic ulcer of other part of left foot limited to breakdown of skin; E11.628 Type 2 diabetes mellitus with other skin complications; L03.039 Cellulitis of unspecified toe; R00.0 Tachycardia, unspecified; R25.1 Tremor, unspecified; F10.21 Alcohol dependence, in remission; R19.7 Diarrhea, unspecified
CPT/HCPCS: 36600; 71010; 73620; 73701; 73720; 76775; 80048; 80053; 80069; 80202; 80307; 81001; 82010; 82565; 82805; 82948; 83036; 83605; 83735; 83935; 84300; 84443; 85025; 85652; 86140; 86403; 87040; 87070; 87077; 87185; 87186; 87205; 93005; 93308; 93923; 96365; 96375; A9579; J1815; J2405; J2543; J3370; J7030; J7040; L3260; Q9967

== ENCOUNTER 2017-09-05 14:40 | Emergency (ER) | payer OTHER ==
[~2017-09-05] VITALS: Ht 190.5 cm; Wt 98.5 kg
[~2017-09-05 14:40] MED LIST changes: +AMLO10 PO; +GETGO ROLLING W1 MI1; +GLUCKIT15; +GLUCTES12; +HYDR-3800 PO; +INSU1MIS15; +LACT PO; +LANCETS1 MI1; +LEVEMIR SQ; +METO25TA3 PO; -NORV2.5T11 PO; +NOVOLOGSS SQ; -SULF1TAB47 PO; +WHEE1EAC; -Z.0.NO CURRENT MEDS
[2017-09-05 14:46] VITALS: BP 134/66; PULSE 114; RESP 16; TEMP 97.8; O2SAT 99
[2017-09-05] MEDS ORDERED: SODIUM CHLOR 0.9% 1000 ML INJ 1,000 ML IV ONE ×2 (15:30→16:45)
--- NOTE | 2017-09-05 15:33 | PD ---
HPI Chief Complaint: Abnormal Results Time Seen by Provider: 15:19 Travel History International Travel<30 days: No Contact w/Intl Traveler<30days: No Traveled to known affect area: No History of Present Illness HPI 47-year-old male states he went to his primary care physician Dr. Arango for a routine checkup. He states when they stood him up he felt lightheaded and his heart rate went up. They sent him here for IV fluids. He states his sugars have been in the 150s over the past couple of days. He states he has no other concurrent complaints. He denies other modifying factors other than standing up. Quality is lightheaded. Severity is mild. PFSH Past Medical History Asthma: No Autoimmune Disease: No Heart Rhythm Problems: No Cancer: No Cardiovascular Problems: Yes High Cholesterol: No (unknown) Chemotherapy: No Chest Pain: No Congestive Heart Failure: No COPD: No Diabetes: Yes Patient Takes Glucophage: Yes Endocrine: No GERD: No Genitourinary: No Hiatal Hernia: No Hypertension: Yes Immune Disorder: No Kidney Stones: No Musculoskeletal: No Neurologic: No Psychiatric: No Reproductive: No Respiratory: No Radiation Therapy: No Renal Failure: No Sickle Cell Disease: No Sleep Apnea: No Thyroid Disease: No Ulcer: No Tetanus Vaccination: > 5 Years Influenza Vaccination: No Past Surgical History Abdominal Surgery: No AICD: No Cardiac Surgery: No Ear Surgery: No Endocrine Surgery: No Genitourinary Surgery: No Gynecologic Surgery: No Insulin Pump: No Joint Replacement: No Oral Surgery: No Pacemaker: No Thoracic Surgery: No Tonsillectomy: Yes Other Surgery: Yes (HERNIA REPAIR) Social History Alcohol Use: No (FORMER) Tobacco Use: Yes (1 PPD) Substance Use: No Allergies-Medications (Allergen,Severity, Reaction): Coded Allergies: codeine (Unverified Allergy, Severe, FACIAL SWELLING, 09/05/17) cephalexin (Unverified Allergy, Unknown, VOMITING, 09/05/17) Reported Meds & Prescriptions Reported Meds & Active Scripts Active Novolog Inj (Insulin Aspart) 100 Unit/Ml Inj 1 Unit SQ ACHS SLIDING SCALE Levemir Inj (Insulin Detemir) 1,000 unit/ 10 ML Vial 5 Units SQ DAILY Do not mix with any other Insulin. Acidophilus/l-Sporogenes (Lactobacillus Acidophilus) 35 Million Cell-25 Million Cell Tab 1 Tab PO Q12HR Norvasc (Amlodipine Besylate) 10 Mg Tab 10 Mg PO DAILY Hydralazine HCl 50 Mg Tablet 75 Mg PO Q8HR Wheelchair 1 Each Each Ea Walker Rolling/GetGo (Device) 1 Mis Mis Ea .ROUTE DIRECTED Glucocom Test Strips (Blood Glucose Test Strips) 1 Sienna Sienna Ea .ROUTE DIRECTED Lancets 1 Mis Mis Ea .ROUTE DIRECTED Insulin Syringe/U-100/31G X 5/16" 1 ml 31 Gauge X 5/16" Mis Ea .ROUTE DIRECTED Glucocom Blood Glucose Mo W/Device (Device) 1 Kit Kit Kit .ROUTE DIRECTED Reported Metoprolol Tartrate 25 Mg Tab 25 Mg PO DAILY Review of Systems Except as stated in HPI: all other systems reviewed are Neg Physical Exam Narrative GENERAL: Well-nourished, well-developed patient. well appearing SKIN: Warm and dry. HEAD: Normocephalic and atraumatic. EYES: No injection or drainage. ENT: No nasal drainage noted. NECK: Supple, trachea midline. CARDIOVASCULAR: Regular rate and rhythm RESPIRATORY: Breath sounds equal bilaterally. No accessory muscle use. GASTROINTESTINAL: Abdomen soft, non-tender, nondistended. EXTREMITIES: No edema. NEUROLOGICAL: Awake and alert. Motor and sensory grossly within normal limits. Normal speech. Data Data Last Documented VS Vital Signs Date Time Temp Pulse Resp B/P (MAP) Pulse Ox O2 Delivery O2 Flow Rate FiO2 09/05/17 17:15 09/05/17 16:25 105 14 98 Room Air 09/05/17 14:46 97.8 Orders Orders Complete Blood Count With Diff (09/05/17 15:23) Basic Metabolic Panel (Bmp) (09/05/17 15:23) Urinalysis - C+S If Indicated (09/05/17 15:23) Iv Access Insert/Monitor (09/05/17 15:23) Sodium Chlor 0.9% 1000 Ml Inj (Ns 1000 M (09/05/17 15:30) Sodium Chlor 0.9% 1000 Ml Inj (Ns 1000 M (09/05/17 16:45) Labs Laboratory Tests Test 09/05/17 15:30 White Blood Count 8.3 TH/MM3 Red Blood Count 5.38 MIL/MM3 Hemoglobin 13.9 GM/DL Hematocrit 43.1 % Mean Corpuscular Volume 80.1 FL Mean Corpuscular Hemoglobin 25.9 PG Mean Corpuscular Hemoglobin Concent 32.4 % Red Cell Distribution Width 13.1 % Platelet Count 254 TH/MM3 Mean Platelet Volume 8.6 FL Neutrophils (%) (Auto) 67.7 % Lymphocytes (%) (Auto) 22.8 % Monocytes (%) (Auto) 7.0 % Eosinophils (%) (Auto) 1.4 % Basophils (%) (Auto) 1.1 % Neutrophils # (Auto) 5.6 TH/MM3 Lymphocytes # (Auto) 1.9 TH/MM3 Monocytes # (Auto) 0.6 TH/MM3 Eosinophils # (Auto) 0.1 TH/MM3 Basophils # (Auto) 0.1 TH/MM3 CBC Comment DIFF FINAL Differential Comment Blood Urea Nitrogen 14 MG/DL Creatinine 1.40 MG/DL Random Glucose 181 MG/DL Calcium Level 9.1 MG/DL Sodium Level 135 MEQ/L Potassium Level 3.9 MEQ/L Chloride Level 104 MEQ/L Carbon Dioxide Level 22.6 MEQ/L Anion Gap 8 MEQ/L Estimat Glomerular Filtration Rate 54 ML/MIN [facility] Medical Decision Making Medical Screen Exam Complete: Yes Emergency Medical Condition: Yes Medical Record Reviewed: Yes (pmh confirmed) Interpretation(s) CBC & BMP Diagram 09/05/17 15:30 Calcium Level 9.1 Differential Diagnosis Renal failure, dehydration, UTI Narrative Course We'll check basic blood work and dose with IV fluids Creatinine has improved from prior, awaiting urinalysis and patient still with mild tachycardia. Recommended repeat dose of IV fluid bolus while awaiting urinalysis the patient states he needs to leave, AMA: The risks of leaving against medical advice without further evaluation treatment were discussed with the patient. These risks include cardiac dysfunction, cardiac dysrhythmia, possible heart attack, possible stroke or . The patient indicated understanding of these risks and appeared to have the capacity to make this decision. Diagnosis Primary Impression: Orthostatic hypotension Patient Instructions: General Instructions Med/Other Pt SpecificInfo: No Change to Meds Disposition: 07 AGAINST MEDICAL ADVICE Condition: Stable Erna Uriarte MD Sep 05, 2017 15:33
[2017-09-05 15:41] LABS: AUTOMATED NEUTROPHIL # 5.6 TH/MM3 (1.8-7.7); BASOPHIL # 0.1 TH/MM3 (0-0.2); BASOPHIL % 1.1 % (0.0-2.0); EOSINOPHIL # 0.1 TH/MM3 (0-0.4); EOSINOPHIL % 1.4 % (0.0-4.0); HEMATOCRIT 43.1 % (39.0-51.0); HEMOGLOBIN 13.9 GM/DL (13.0-17.0); LYMPH % 22.8 % (9.0-44.0); LYMPHOCYTE # 1.9 TH/MM3 (1.0-4.8); MEAN CELL VOLUME 80.1 FL (80.0-100.0); MEAN CORPUSCULAR HEMOGLOBIN 25.9 PG (27.0-34.0); MEAN CORPUSCULAR HGB CONC 32.4 % (32.0-36.0); MEAN PLATELET VOLUME 8.6 FL (7.0-11.0); MONOCYTE # 0.6 TH/MM3 (0-0.9); NEUT % 67.7 % (16.0-70.0); PLATELET COUNT 254 TH/MM3 (150-450); RED BLOOD COUNT 5.38 MIL/MM3 (4.50-5.90); RED CELL DISTRIBUTION WIDTH 13.1 % (11.6-17.2); WHITE BLOOD COUNT 8.3 TH/MM3 (4.0-11.0)
[2017-09-05 16:12] LABS: CALCIUM 9.1 MG/DL (8.5-10.1); CREATININE 1.4 MG/DL (0.60-1.30)
[2017-09-05 16:13] LABS: BICARBONATE 22.6 MEQ/L (21.0-32.0)
[2017-09-05 16:25] VITALS: BP 134/94; PULSE 105; RESP 14; O2SAT 98
[2017-09-11] MEDS ORDERED: HYDR-3800 PO (10:42)
== END 2017-09-05 17:21 | disposition left against medical advice (07) ==
LOC: PHED 14:40
DX: I95.1 Orthostatic hypotension (principal); E11.9 Type 2 diabetes mellitus without complications; I10 Essential (primary) hypertension; Z72.0 Tobacco use
CPT/HCPCS: 80048; 85025; 96360; 99284; J7030